=== PATIENT | female | born 1955 | race Caucasian/White ===

== ENCOUNTER → 2017-07-27 10:25 | Outpatient (CLI) | payer OTHER, SELFPAY ==
[2017-07-27 11:07] LABS: AST(SGOT) 27 U/L (15-37); Alanine Aminotransfer ALT/SGPT 44 U/L (13-56); Albumin, Serum 3.7 g/dL (3.2-5.0); Alkaline Phosphatase 119 U/L (45-117); Bilirubin, Direct 0.18 mg/dL (0.00-0.30); Cholesterol 116 mg/dL (200); Globulin 3.7 g/dL (2.2-4.2); High Density Lipoprotein 32 mg/dL; Protein, Total 7.4 g/dL (6.4-8.2); Triglycerides 122 mg/dL; Very Low Density Lipoprotein 24 mg/dL (5-40)
== END ==
PROVIDERS: PCP Family Medicine; Visit Provider Physician Assistant Medical
DX: E78.5 Hyperlipidemia, unspecified (principal); Z79.899 Other long term (current) drug therapy
CPT/HCPCS: 36415; 80061; 80076

== ENCOUNTER 2018-04-10 13:09 | Emergency (ER) | payer OTHER, SELFPAY ==
--- NOTE | 2018-04-10 13:05 | RAD_ITS ---
STUDY: X-RAY CHEST REASON FOR EXAM: Female, 62 years old. Chest pain. TECHNIQUE: Single AP portable view of the chest. COMPARISON: Comparison is made with prior examination dated November 24, 2015. FINDINGS: EKG electrodes are seen. Hyperinflation. There now is evidence of a 2.5 cm x 1.8 cm irregular nodule in the right lung. There is also evidence of a 1 cm x 1.1 cm ill-defined nodule in the left perihilar region. Correlation with CT is recommended. There is no demonstrated pleural abnormality. Normal size heart. Normal mediastinum and zheng. Normal visualized pulmonary arteries. Normal visualized aortic arch and descending thoracic aorta. Normal visualized thoracic spine. Normal visualized ribs, clavicles, and shoulders. There is no demonstrated abnormality of the visualized soft tissue structures of the upper abdomen. RAD/Chest 1 View (Portable) IMPRESSION: Nodular density in the right mid lung as well as in the left perihilar region as described. Correlation with a CT scan recommended. Electronically Signed: Chacorta Whitt MD at 13:49 EST Tel [phone], Service support ,
[2018-04-10 13:09] VITALS: BP 153/77; PULSE 102; RESP 16; TEMP 36.7; O2SAT 93; BMI 31.2
--- NOTE | 2018-04-10 13:14 | EKG12_ITS ---
Test Reason : CP Blood Pressure : / mmHG Vent. Rate : 092 BPM Atrial Rate : 092 BPM P-R Int : 134 ms QRS Dur : 072 ms QT Int : 362 ms P-R-T Axes : 046 080 036 degrees QTc Int : 447 ms Normal sinus rhythm Normal ECG Confirmed by SUE ZULUAGA MD ([id number]), communications editor JEAN PIERRE SCRUGGS ([id number] on 04/12/2018 3:20:17 PM Referred By: MARCELLA Confirmed By:SUE ZULUAGA MD
[2018-04-10 14:12] VITALS: BP 128/77; PULSE 83; RESP 20; O2SAT 94
--- NOTE | 2018-04-10 14:33 | ED.VISSUMM ---
- ER Visit Summary Date of Service: 04/10/18 Chief Complaint: Chest discomfort History of Present Illness: The patient is a 62 F roxann, hypertension, high cholesterol. Patient has one cardiac stent. Is on Plavix. She states the last 2 days she has not felt well. Cough clear phlegm. No hemoptysis. No DVT or PE history. Last travel was 2 months ago. No recent hospitalization. No hemoptysis. No pleuritic pain. No calf pain or swelling. She states today when she bent over she had some chest discomfort that was worsened. She denies fever or chills. Physical Examination: Well-appearing older female. Vital signs are stable. Afebrile. H EENT exam unremarkable. Mildly hoarse voice. Posterior pharynx unremarkable. Neck nontender no lymphadenopathy. Lungs clear to auscultation bilaterally. No rales, rhonchi or wheezing. Heart regular rhythm no murmur. Rate about 90. Chest wall no significant tenderness. No ecchymosis or bruising. No subcu air or crepitance. Patient is moving all 4 extremities. They are neurovascularly intact. Calves are nontender without edema or cords. Radial pulses are equal and symmetrical. Neurologically she is awake and alert with no focal motor deficits. Back nontender. Test Results: EKG shows a sinus rhythm rate of 90 w/o GA or ischemia. Unchanged from prior EKG from 11/25/2015. Chest x-ray portable one view shows bilateral mid lung densities which could be nodularities. But no acute pneumonia. Normal cardiac silhouette. No acute process. See normal white count of 10. Hemoglobin 14. Electrolytes unremarkable. Normal gap. Troponin normal. Emergency Department Course and Treatment: She will undergo cardiac workup. Clinically this may be a bronchitis. Repeat exam patient is doing well at 1702. Overall test results with her. Clinically I do feel this is secondary to her bronchitis and noncardiac. I explained her that this is more likely viral and she did not need an ex at this time. She is comfortable being discharged with the plan. We will follow-up if not improving. I did discuss with the patient that she had nodularities in both lung nguyen that needed further evaluation and follow-up. Treatment Plan: Symptomatic treatment for bronchitis. Follow-up with primary care physician or return if worse. Disposition: Discharge Impression: Acute viral bronchitis Chest pain Incidental findings on chest x-ray possible nodularities which will need further evaluation. This note was generated with [employer] dictation software. It may contain incorrect words, spelling, and punctuation that were not noted in review of the chart prior to signing ED Disposition - Plan for ED Patient: Chief Complaint: Chest Pain Referrals: Eduardo Alvarez MD [Primary Care Provider] -
[2018-04-10 14:58] LABS: Absolute Lymphocyte Count 1.95 X10^3/ul (0.83-4.51); Absolute Neutrophil Count 7.7 X10^3/uL (2.0-7.7); Basophil# 0.03 X10^3/uL; Basophil% 0.3 % (0-1); Eosinophil# 0.07 X10^3/uL; Eosinophils% 0.7 % (0-5); Hematocrit 44.2 % (37-47); Hemoglobin 14.4 g/dl (12.0-15.0); Lymphocyte # 1.95 X10^3/ul (4.0); Lymphocyte % 18.7 % (19-41); Mean Corp Hgb Conc 32.6 g/gl (32-36); Mean Corpuscular Hgb 31.6 pg (27.0-32.0); Mean Corpuscular Volume 97.1 fL (81-99); Mean Platelet Vol. 10.7 fl (6.2-12.0); Monocyte# 0.69 X10^3/uL; Monocyte% 6.6 % (0-10); Neutrophil # 7.69 X10^3/uL (2.7-7.7); Neutrophil % 73.6 % (47-70); Platelet Count 287 K/mm3 (150-450); RBC Distribution Width CV 12.4 % (11.6-14.6); Red Blood Count 4.55 M/mm3 (4.2-5.4); White Blood Count 10.4 K/mm3 (4.4-11.0)
[2018-04-10 15:00] VITALS: BP 124/66; PULSE 75; RESP 18; O2SAT 98
[2018-04-10 15:00] LABS: POSITIVE COUNT NO; POSITIVE DIFFERENTIAL NO; POSITIVE MORPHOLOGY NO
[2018-04-10 15:11] LABS: Anion Gap 7 (5-15); BUN 7 mg/dL (7-18); BUN/Creat Ratio 8.9 RATIO (10-20); Calcium,Total 9.1 mg/dL (8.5-10.1); Chloride 100 mmol/L (98-107); Creatinine, Serum 0.78 mg/dL (0.55-1.02); EST Glomerular Filtration Rate 79 mL/min (>60); Est Glom Filt Rate - Afr Amer 95 mL/min (>60); Estimated Creatinine Clearance 60.27 ml/min; Glucose 165 mg/dL (74-106); Potassium 4.1 mmol/L (3.5-5.1); Sodium Level 135 mmol/L (136-145)
[2018-04-10 16:15] VITALS: BP 116/52; PULSE 84; RESP 13; O2SAT 93
--- NOTE | 2018-04-10 17:07 | ED.DEP ---
ED Disposition - Plan for ED Patient: Disposition: Home or Assisted Living Chief Complaint: Chest Pain Instructions: ED Chest Pain Atypical Unkn Cause, ED URI Viral Referrals: Eduardo Alvarez MD [Primary Care Provider] - 1 Week if not improving Additional Instructions: Absolutely stop smoking. Follow-up your primary care physician if not improving. Plenty fluids and rest. You do have small nodules that showed up in your lungs on the chest x-ray. This will need follow-up CAT scans as an outpatient. You will need to discuss this with your primary care physician.
[2018-04-10 17:18] VITALS: BP 127/64; PULSE 80; RESP 16; O2SAT 99
== END 2018-04-10 17:18 | disposition home or self-care (01) ==
PROVIDERS: Emergency Provider Emergency Medicine; Family Provider Family Medicine; PCP Family Medicine
DX: J20.8 Acute bronchitis due to other specified organisms (principal); R07.89 Other chest pain; R91.8 Other nonspecific abnormal finding of lung field; I25.10 Atherosclerotic heart disease of native coronary artery without angina pectoris; I25.2 Old myocardial infarction; I10 Essential (primary) hypertension; E78.00 Pure hypercholesterolemia, unspecified; Z95.5 Presence of coronary angioplasty implant and graft; Z79.01 Long term (current) use of anticoagulants; Z79.899 Other long term (current) drug therapy; Z72.0 Tobacco use
CPT/HCPCS: 36415; 71045; 80048; 84484; 85025; 93005; 99284; A4216

== ENCOUNTER 2018-04-22 14:07 | Emergency (ER) | payer OTHER, SELFPAY ==
[2018-04-22 14:07] VITALS: BP 127/67; PULSE 82; RESP 18; TEMP 36.9; O2SAT 97; BMI 30.7
--- NOTE | 2018-04-22 14:22 | RAD_ITS ---
STUDY: X-RAY CHEST REASON FOR EXAM: Female, 62 years old. Chest pain. TECHNIQUE: Single AP portable upright view of the chest. COMPARISON: Portable AP chest x-ray April 10, 2018. FINDINGS: Irregular nodular density suggested previously in the right midlung is notably decreased in size to roughly 1 cm, seen today projecting just below the posterior right seventh rib. Nodular density in the left midlung has increased to an ill-defined 3.9 x 2.5 cm groundglass density of indeterminate etiology. There is no demonstrated pleural abnormality. Normal size heart. Normal mediastinum and zheng. Normal visualized pulmonary arteries. Normal visualized aortic arch and descending thoracic aorta. There are stable multilevel degenerative changes of the visualized thoracic spine. 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 There is no demonstrated abnormality of the visualized soft tissue structures of the upper abdomen. RAD/Chest 1 View (Portable) IMPRESSION: 1. Nodular density noted previously in the left perihilar tissues has increased an ill-defined 3.9 cm groundglass density of indeterminate etiology. Further characterization with CT is advised. 2. Regular nodular density in the right midlung has decreased in size, now roughly 1 cm. Electronically Signed: Enoc Street MD at 15:17 EST , Service support ,
--- NOTE | 2018-04-22 14:22 | EKG12_ITS ---
Test Reason : CP Blood Pressure : / mmHG Vent. Rate : 083 BPM Atrial Rate : 083 BPM P-R Int : 144 ms QRS Dur : 074 ms QT Int : 390 ms P-R-T Axes : 079 083 042 degrees QTc Int : 458 ms Normal sinus rhythm Normal ECG Confirmed by SUE ZULUAGA MD ([id number]), legal editor JEAN PIERRE SCRUGGS ([id number]) on 04/25/2018 1:01:46 PM Referred By: JEROMY/MARCELLA Confirmed By:SUE ZULUAGA MD
[2018-04-22 14:23] VITALS: O2SAT 100
[2018-04-22] MEDS: Aspirin 81 MG TAB.CHEW 324 MG PO (14:28)
[2018-04-22 14:36] LABS: Absolute Lymphocyte Count 3.96 X10^3/ul (0.83-4.51); Basophil# 0.03 X10^3/uL; Basophil% 0.2 % (0-1); Eosinophil# 0.09 X10^3/uL; Eosinophils% 0.6 % (0-5); Hematocrit 41.1 % (37-47); Hemoglobin 13.4 g/dl (12.0-15.0); Lymphocyte # 3.96 X10^3/ul (4.0); Lymphocyte % 24.5 % (19-41); Mean Corp Hgb Conc 32.6 g/gl (32-36); Mean Corpuscular Hgb 31.5 pg (27.0-32.0); Mean Corpuscular Volume 96.5 fL (81-99); Mean Platelet Vol. 10.2 fl (6.2-12.0); Monocyte% 6.2 % (0-10); Neutrophil # 11.02 X10^3/uL (2.7-7.7); Neutrophil % 68.1 % (47-70); Platelet Count 437 K/mm3 (150-450); RBC Distribution Width CV 12.4 % (11.6-14.6); RBC Distribution Width SD 43.2 fl (35.1-43.9); Red Blood Count 4.26 M/mm3 (4.2-5.4); White Blood Count 16.2 K/mm3 (4.4-11.0)
[2018-04-22 14:38] LABS: POSITIVE COUNT NO; POSITIVE DIFFERENTIAL NO; POSITIVE MORPHOLOGY NO
[2018-04-22 14:47] LABS: Anion Gap 5 (5-15); BUN 12 mg/dL (7-18); BUN/Creat Ratio 12.4 RATIO (10-20); Calcium,Total 8.9 mg/dL (8.5-10.1); Chloride 97 mmol/L (98-107); Creatinine, Serum 0.96 mg/dL (0.55-1.02); EST Glomerular Filtration Rate 62 mL/min (>60); Est Glom Filt Rate - Afr Amer 75 mL/min (>60); Estimated Creatinine Clearance 48.97 ml/min; Glucose 205 mg/dL (74-106); Potassium 3.4 mmol/L (3.5-5.1); Sodium Level 135 mmol/L (136-145)
--- NOTE | 2018-04-22 15:31 | ED.VISSUMM ---
- ER Visit Summary Date of Service: 04/22/18 Chief Complaint: Chest discomfort History of Present Illness: The patient is a 62 F history of type 2 diabetes, CAD, elevated cholesterol, one cardiac stent. Patient states has some chest discomfort. No nausea no diaphoresis. Has had a chronic cough. Recently being treated for bronchitis. Also complaining of a coating on her tongue. Physical Examination: Vital signs are stable. Afebrile. Pulse ox 97% on room air no signs of hypoxia. No distress. H EENT exam tongue is a coating consistent with thrush. Neck nontender. No lymphadenopathy. Lungs clear to auscultation bilaterally. Heart regular rate and rhythm no murmur rate about 80. Abdomen soft nontender nondistended no commands or masses. Chest wall there is reproducible chest wall tenderness consistent with chest wall pain. There is no ecchymosis or bruising. No redness or warmth. No signs of trauma. Patient moving all 4 extremities. Calves are nontender without edema or cords. Radial pulses are equal and symmetrical. Neurologically she is awake alert with no focal motor deficits. Test Results: Chest x-ray shows no acute abnormality. There is a left perihilar density and a right lower lung density. The been seen previously. CBC shows a white count of 16. H&H of 13 and 41. No bands. Electrolytes unremarkable. Normal creatinine and gap. Troponin normal. EKG sinus rhythm rate of 1 3 with no acute abnormality. No signs of AK or ischemia. Unchanged from prior EKG from less than 2 weeks ago. Emergency Department Course and Treatment: Repeat exam patient is doing well. Feeling better at 1530. I went over all test results with patient and family. Treatment Plan: Tylenol and/or Motrin for chest wall pain. Oral troches for oral yeast infection Disposition: Discharge Impression: Acute chest pain secondary to chest wall pain Thrush This note was generated with [employer] dictation software. It may contain incorrect words, spelling, and punctuation that were not noted in review of the chart prior to signing ED Disposition - Plan for ED Patient: Chief Complaint: Chest Pain Referrals: Eduardo Alvarez MD [Primary Care Provider] -
--- NOTE | 2018-04-22 15:34 | ED.DCSUM_ITS ---
- ER Visit Summary Date of Service: 04/22/18 Chief Complaint: Chest discomfort History of Present Illness: The patient is a 62 F history of type 2 diabetes, CAD, elevated cholesterol, one cardiac stent. Patient states has some chest discomfort. No nausea no diaphoresis. Has had a chronic cough. Recently being treated for bronchitis. Also complaining of a coating on her tongue. Physical Examination: Vital signs are stable. Afebrile. Pulse ox 97% on room air no signs of hypoxia. No distress. H EENT exam tongue is a coating consistent with thrush. Neck nontender. No lymphadenopathy. Lungs clear to auscultation bilaterally. Heart regular rate and rhythm no murmur rate about 80. Abdomen soft nontender nondistended no commands or masses. Chest wall there is reproducible chest wall tenderness consistent with chest wall pain. There is no ecchymosis or bruising. No redness or warmth. No signs of trauma. Patient moving all 4 extremities. Calves are nontender without edema or cords. Radial pulses are equal and symmetrical. Neurologically she is awake alert with no focal motor deficits. Test Results: Chest x-ray shows no acute abnormality. There is a left perihilar density and a right lower lung density. The been seen previously. CBC shows a white count of 16. H&H of 13 and 41. No bands. Electrolytes unremarkable. Normal creatinine and gap. Troponin normal. EKG sinus rhythm rate of 1 3 with no acute abnormality. No signs of ME or ischemia. Unchanged from prior EKG from less than 2 weeks ago. Emergency Department Course and Treatment: Repeat exam patient is doing well. Feeling better at 1530. I went over all test results with patient and family. Treatment Plan: Tylenol and/or Motrin for chest wall pain. Oral troches for oral yeast infection Disposition: Discharge Impression: Acute chest pain secondary to chest wall pain Thrush This note was generated with [employer] dictation software. It may contain incorrect words, spelling, and punctuation that were not noted in review of the chart prior to signing ED Disposition - Plan for ED Patient: Chief Complaint: Chest Pain Referrals: Eduardo Alvarez MD [Primary Care Provider] -
--- NOTE | 2018-04-22 15:34 | ED.DEP ---
ED Disposition - Plan for ED Patient: Disposition: Home or Assisted Living Chief Complaint: Chest Pain Instructions: ED Chest Pain Costochondritis, Oral Thrush Prescriptions: Nystatin 100,000 unit PO 4X/DAY PRN PRN 7 Days oral.susp PRN Reason: thrush Referrals: Eduardo Alvarez MD [Primary Care Provider] - As Needed Additional Instructions: Tylenol Motrin for pain. Return if feeling worse. Follow-up with primary care physician
[2018-04-22 15:46] VITALS: BP 116/75; PULSE 72; RESP 16; O2SAT 97
== END 2018-04-22 15:48 | disposition home or self-care (01) ==
PROVIDERS: Emergency Provider Emergency Medicine; Family Provider Family Medicine; PCP Family Medicine
DX: R07.89 Other chest pain (principal); B37.0 Candidal stomatitis; E11.9 Type 2 diabetes mellitus without complications; I25.10 Atherosclerotic heart disease of native coronary artery without angina pectoris; E78.00 Pure hypercholesterolemia, unspecified; Z95.5 Presence of coronary angioplasty implant and graft; Z79.01 Long term (current) use of anticoagulants; Z79.899 Other long term (current) drug therapy; Z72.0 Tobacco use
CPT/HCPCS: 71045; 80048; 84484; 85025; 93005; 99285

== ENCOUNTER → 2018-12-03 11:46 | Outpatient (CLI) | payer MEDICARE, SELFPAY ==
--- NOTE | 2018-12-03 11:55 | RAD_ITS ---
STUDY: X-RAY - RIGHT HAND REASON FOR EXAM: Female, 63 years old. Pain TECHNIQUE: 3 view(s) of the hand. COMPARISON: None. FINDINGS: Normal radiocarpal articulation. Normal distal radioulnar joint. Normal visualized carpal bones. Normal carpal articulations Normal carpometacarpal articulation of the thumb. Normal second through fifth carpometacarpal joints. Normal metacarpi. Normal metacarpophalangeal joint of the thumb. There is degenerative arthrosis of the interphalangeal joint of the thumb with articular joint space narrowing. Normal proximal and distal phalanges of the thumb. Normal metacarpophalangeal joints of the second through fifth fingers. There is diffuse articular joint space narrowing of the proximal and distal interphalangeal joints of the second through fifth fingers, but without erosive changes or periarticular soft tissue swelling. Normal phalanges of the second through fifth fingers. The soft tissue structures are unremarkable. RAD/Hand Min 3 Views IMPRESSION: Distal joint arthrosis, no demonstrated fracture or suspicious osseous lesion. Electronically Signed: Enoc Patel MD at 12:25 EDT , Service support ,
== END ==
PROVIDERS: Family Provider Family Medicine; PCP Family Medicine; Referring Provider Family Medicine; Visit Provider Family Medicine
DX: M19.041 Primary osteoarthritis, right hand (principal)
CPT/HCPCS: 73130

== ENCOUNTER → 2019-11-18 | Outpatient (CLI) | payer BC, SELFPAY ==
[2019-11-18 12:48] LABS: Anion Gap 4 (5-15); BUN 6 mg/dL (7-18); BUN/Creat Ratio 8.6 RATIO (10-20); Calcium,Total 9.2 mg/dL (8.5-10.1); Chloride 109 mmol/L (98-107); Cholesterol 114 mg/dL (200); EST Glomerular Filtration Rate 89 mL/min (>60); Est Glom Filt Rate - Afr Amer 108 mL/min (>60); Glucose 209 mg/dL (74-106); High Density Lipoprotein 33 mg/dL; Potassium 4.2 mmol/L (3.5-5.1); Sodium Level 140 mmol/L (136-145); Triglycerides 121 mg/dL; Very Low Density Lipoprotein 24 mg/dL (5-40)
== END | disposition home or self-care (01) ==
LOC: MFPLAB 10:26
PROVIDERS: PCP Family Medicine; Visit Provider Family Medicine
DX: I10 Essential (primary) hypertension (principal)
CPT/HCPCS: 36415; 80048; 80061

== ENCOUNTER → 2019-11-21 09:17 | Outpatient (CLI) | payer BC, SELFPAY ==
[2019-11-21 10:36] LABS: Microalbumin,Random Urine 50.6 mg/L (NO RANGE EST.); Microalbumin:Creatinine Ratio 34.2 mg/g CRE (<30 mg/g CRE)
[2019-11-21 11:06] LABS: AST(SGOT) 33 U/L (15-37); Alanine Aminotransfer ALT/SGPT 41 U/L (13-56); Albumin, Serum 3.5 g/dL (3.2-5.0); Alkaline Phosphatase 107 U/L (45-117); Anion Gap 4 (5-15); BUN 10 mg/dL (7-18); BUN/Creat Ratio 14.6 RATIO (10-20); Bilirubin, Direct 0.16 mg/dL (0.00-0.30); Calcium,Total 9.1 mg/dL (8.5-10.1); Chloride 107 mmol/L (98-107); Cholesterol 111 mg/dL (200); Creatinine, Serum 0.69 mg/dL (0.55-1.02); EST Glomerular Filtration Rate 91 mL/min (>60); Est Glom Filt Rate - Afr Amer 110 mL/min (>60); Globulin 3.6 g/dL (2.2-4.2); Glucose 260 mg/dL (74-106); High Density Lipoprotein 32 mg/dL; Potassium 4.2 mmol/L (3.5-5.1); Protein, Total 7.1 g/dL (6.4-8.2); Sodium Level 139 mmol/L (136-145); Triglycerides 139 mg/dL; Very Low Density Lipoprotein 28 mg/dL (5-40)
== END ==
PROVIDERS: PCP Family Medicine; Referring Provider Family Medicine; Visit Provider Family Medicine
DX: E11.9 Type 2 diabetes mellitus without complications (principal)
CPT/HCPCS: 36415; 80048; 80061; 80076; 82043; 82570

== ENCOUNTER → 2020-01-03 17:26 | Outpatient (CLI) | payer BC, SELFPAY | PROVIDERS: PCP Family Medicine; Referring Provider Family Medicine; Visit Provider Family Medicine | DX: Z20.828 Contact with and (suspected) exposure to other viral communicable diseases (principal) | CPT/HCPCS: 87635; U0003 ==

== ENCOUNTER → 2020-08-21 10:00 | Outpatient (CLI) | payer MEDICARE, SELFPAY ==
[2020-02-27 14:52] VITALS: BMI 31.6
[2020-08-21 12:43] LABS: Anion Gap 6 (5-15); BUN 11 mg/dL (7-18); BUN/Creat Ratio 16.3 RATIO (10-20); Calcium,Total 9.4 mg/dL (8.5-10.1); Chloride 107 mmol/L (98-107); Cholesterol 128 mg/dL (200); Creatinine, Serum 0.67 mg/dL (0.55-1.02); EST Glomerular Filtration Rate 93 mL/min (>60); Est Glom Filt Rate - Afr Amer 112 mL/min (>60); Glucose 146 mg/dL (74-106); High Density Lipoprotein 35 mg/dL; Sodium Level 141 mmol/L (136-145); Triglycerides 117 mg/dL; Very Low Density Lipoprotein 23 mg/dL (5-40)
[2020-08-21 12:55] LABS: Microalbumin,Random Urine 55.9 mg/L (NO RANGE EST.); Microalbumin:Creatinine Ratio 27.1 mg/g CRE (<30 mg/g CRE)
== END ==
PROVIDERS: PCP Family Medicine; Referring Provider Family Medicine; Visit Provider Family Medicine
DX: E11.9 Type 2 diabetes mellitus without complications (principal)
CPT/HCPCS: 36415; 80048; 80061; 82043; 82570

== ENCOUNTER → 2020-10-26 15:43 | Outpatient (CLI) | payer MEDICARE, SELFPAY ==
[2020-02-27 14:52] VITALS: BMI 31.6
--- NOTE | 2020-10-26 15:45 | CT_ITS ---
STUDY: CT CHEST WITHOUT CONTRAST- LOW DOSE SCREENING PROTOCOL REASON FOR EXAM: Female, 64 years old. Current smoker. 75 pack per year history. No current symptoms of lung cancer or pulmonary infection. Shared decision-making with referring PCP documented in patient''s record. RADIATION DOSAGE (If Supplied By Facility): CTDIvol = ( 3.02 ) mGy, DLP = ( 97.42 ) mGycm TECHNIQUE: Low dose screening CT examination performed from the base of the neck to the upper abdomen. Sagittal and coronal reformatted images performed. Sagittal and coronal MIP images provided. The measurements provided are average, rounded measurements per ACR guidelines. COMPARISON: None. FINDINGS: Mild emphysematous changes. 1 cm noncalcified nodule in the medial left upper lobe the lungs on image 84 and correlation with PET CT scan is recommended. Follow-up CT is recommended in 3 months document stability. There is no demonstrated pleural abnormality. Normal heart and pericardium. There are calcifications of the coronary arteries. Normal mediastinum. Normal hilar regions. Normal unenhanced pulmonary arteries. There is atherosclerotic calcification of the aortic arch with tortuosity and elongation of the aortic arch and descending thoracic aorta. Normal osseous structures. There is no demonstrated abnormality of the visualized upper abdomen. CT/Low Dose CT Lung Screening IMPRESSION: 1. 1 cm noncalcified left upper lobe nodule and correlation with PET CT scan is recommended. Follow-up CT is recommended in 3 months document stability.. 2. Incidental findings include mild emphysema and calcified coronary plaque.. ASSESSMENT CATEGORY: LungRADS 4A - Suspicious. Recommend follow up LDCT in 3 months. PET/CT may be used if there is an 8 mm or larger solid component. Electronically Signed: Alvin Elias MD at 8:38 EDT Tel , Service support ,
== END ==
PROVIDERS: PCP Family Medicine; Referring Provider Internal Medicine Pulmonary Disease; Visit Provider Internal Medicine Pulmonary Disease
DX: Z87.891 Personal history of nicotine dependence (principal)
CPT/HCPCS: 71271

== ENCOUNTER → 2020-11-19 11:53 | Outpatient (CLI) | payer MEDICARE, SELFPAY ==
[2020-02-27 14:52] VITALS: BMI 31.6
[2020-11-19 15:13] LABS: Anion Gap 6 (5-15); BUN 10 mg/dL (7-18); BUN/Creat Ratio 13.8 RATIO (10-20); Calcium,Total 9.2 mg/dL (8.5-10.1); Chloride 103 mmol/L (98-107); Cholesterol 141 mg/dL (200); Creatinine, Serum 0.73 mg/dL (0.55-1.02); EST Glomerular Filtration Rate 85 mL/min (>60); Est Glom Filt Rate - Afr Amer 103 mL/min (>60); Glucose 208 mg/dL (74-106); High Density Lipoprotein 39 mg/dL; Potassium 4.2 mmol/L (3.5-5.1); Sodium Level 137 mmol/L (136-145); Triglycerides 145 mg/dL; Very Low Density Lipoprotein 29 mg/dL (5-40)
== END ==
PROVIDERS: PCP Family Medicine; Referring Provider Family Medicine; Visit Provider Family Medicine
DX: E11.9 Type 2 diabetes mellitus without complications (principal)
CPT/HCPCS: 36415; 80048; 80061

== ENCOUNTER 2020-11-25 07:46 | Emergency (ER) | payer MEDICARE, SELFPAY ==
[2020-11-19 13:56] VITALS: BMI 32.4
[2020-11-25 07:47] VITALS: BP 127/62; PULSE 88; RESP 22; TEMP 35.4; O2SAT 91; BMI 31.8
--- NOTE | 2020-11-25 08:11 | EKG12_ITS ---
Test Reason : SOB Blood Pressure : / mmHG Vent. Rate : 080 BPM Atrial Rate : 080 BPM P-R Int : 152 ms QRS Dur : 078 ms QT Int : 398 ms P-R-T Axes : 049 080 037 degrees QTc Int : 459 ms Normal sinus rhythm Normal ECG Confirmed by MARGARETH SANCHEZ, SUE ([id number]), advertising editor GREGG COLINDRES ([id number]) on 11/27/2020 12:44:37 PM Referred By: SAAD Confirmed By:SUE ZULUAGA MD
--- NOTE | 2020-11-25 08:13 | ED.VIS.DYS ---
HPI History of Present Illness Chief Complaint: Shortness of Breath Narrative Narrative: 65-year-old female presenting for shortness of breath. She states that 5 days ago on Monday she started to feel that she was coming down with flulike symptoms. She states she slept a lot. She developed a fever over Monday and Monday. She did not check her temperature but states subjectively she felt like she had a fever, chills, body aches. No loss of taste or smell. Patient states that today she feels more dyspneic. Overnight she states she had some aching in her chest which was very mild. She has not been vaccinated for COVID-19. 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 [facility] Medical History Atherosclerosis of coronary artery without angina pectoris COPD (chronic obstructive pulmonary disease) Diabetes mellitus type II, controlled Essential (primary) hypertension History of non-ST elevation myocardial infarction (NSTEMI) (01/19/09) HLD (hyperlipidemia) Nicotine dependence Obesity (BMI 30-39.9) SVT (supraventricular tachycardia) Home Medications magnesium oxide 400 mg (241.3 mg magnesium) tablet 400 mg PO BID #180 tab 04/23/19 [Rx Last Taken Unknown] atorvastatin 80 mg tablet 80 mg PO QHS #90 tab 01/21/20 [Rx Last Taken Unknown] clopidogrel 75 mg tablet 75 mg PO DAILY #90 tab 01/21/20 [Rx Last Taken Unknown] folic acid 1 mg tablet 1 mg PO DAILY #90 tab 02/18/20 [Rx Last Taken Unknown] biotin 5 mg capsule 5 mg PO DAILY 02/27/20 [History Last Taken Unknown] vitamin E (dl, acetate) 400 unit capsule 450 mg PO DAILY 02/27/20 [History Last Taken Unknown] lisinopril 10 mg tablet 10 mg PO DAILY #90 tab 05/08/20 [Rx Last Taken Unknown] isosorbide mononitrate 30 mg tablet,extended release 24 hr 30 mg PO DAILY #90 tab 06/19/20 [Rx Last Taken Unknown] metoprolol succinate 50 mg tablet,extended release 24 hr 50 mg PO DAILY #30 tab 08/13/20 [Rx Last Taken Unknown] nitroglycerin 0.4 mg sublingual tablet 0.4 mg SUBLINGUAL Q5M PRN #25 tab 10/09/20 [Rx Last Taken Unknown] glimepiride 4 mg tablet mg PO 11/19/20 [History Last Taken Unknown] metformin 500 mg tablet,extended release 24 hr mg PO 11/19/20 [History Last Taken Unknown] umeclidinium 62.5 mcg-vilanterol 25 mcg/actuation powdr for inhalation 1 inh INHALATION DAILY ea 11/19/20 [History Last Taken Unknown] Allergy/AdvReac Type Severity Reaction Status Date / Time cephalexin Allergy Hives Verified 11/25/20 07:47 Fish Containing Products Allergy Anaphylaxis Verified 11/25/20 07:47 Penicillins Allergy Anaphylaxis Verified 11/25/20 07:47 venom-honey bee Allergy Shortness Verified 11/25/20 07:47 [bee venom (honey bee)] of breath sulfadiazine AdvReac Severe Unknown Verified 11/25/20 07:47 wellbutrin AdvReac Severe Rash Uncoded 11/25/20 07:47 Family History Father Diabetes Hypertension CAD (coronary artery disease) Hx CABG Myocardial infarction, Onset Age: 63 Cancer Lung Cancer Mother , from aneurysm at age 40 CVA (cerebral vascular accident) Daughter CAD (coronary artery disease) Surgical History History of bilateral carpal tunnel release History of coronary artery stent placement (01/19/09) History of hysterectomy History of left heart catheterization (11/25/15) Social History Smoking Status: Current every day smoker tobacco type: cigarettes alcohol intake: never substance use type: does not use caffeine: Yes Type: coffee what type of physical activity do you participate in: none seatbelt use: always do you feel safe at home: Yes ROS ROS ED Constitutional Constitutional ED: Reports chills and fever(s); Denies sweats Eyes Eyes: Denies blurry vision or change in vision ENT ENT ED: Denies ear pain or rhinorrhea Respiratory/Chest Respiratory/Chest: Reports cough, dyspnea and dyspnea on exertion Gastrointestinal Gastrointestinal: Denies abdominal pain, nausea or vomiting Genitourinary Genitourinary ED: Denies dysuria or hematuria Musculoskeletal Musculoskeletal: Reports myalgias; Denies arthralgias or neck pain Integumentary Denies abscess or rash Neurologic Neurologic: Denies headache(s), paresthesias or weakness Psychiatric Psychiatric: Denies anxiety or depression EXAM Physical Exam Const Vital Signs: 11/25/20 07:47 11/25/20 10:18 Temperature 95.7 F L Temperature Source Temporal Pulse Rate 88 82 Respiratory Rate 22 H 14 Respiratory Effort Short of Breath Respiratory Depth Normal Respiratory Pattern Tachypnea Blood Pressure 127/62 H Blood Pressure Mean 83 Pulse Ox 91 94 Oxygen Delivery Method Room Air Nasal Cannula Oxygen Flow Rate (L/min) 2 Positive well nourished General Appearance ED: NAD HEENT Reports moist mucous membranes atraumatic Eyes PERRL General Eye ED: Negative for scleral icterus Resp normal respiratory effort and clear to auscultation bilaterally Cardio regular rate and regular rhythm Extremity normal to inspection General Extremety ED: Negative for edema General Extremity: Negative for edema Neuro oriented x3 Sensorium / Orientation: alert Skin Lesions: no lesions Rashes: no rashes MDM MDM MDM Narrative Medical decision making narrative: Patient presenting with concern for COVID-19. Has had some viral symptoms. She also complained of mild aching for a minute or 2 last night in her chest. She had an EKG as interpreted by myself is sinus rhythm without signs of ischemic change 80 bpm. My interpretation of her one-view portable chest x-ray is negative for acute cardiopulmonary process. Patient's white blood cell count is 9.2, hemoglobin hematocrit stable. She is not lymphopenic. Renal function and electrolytes are normal. Lactic acid is negative. Troponin is negative. Age-adjusted D-dimer is negative. During the patient's stay it was noted that when she sits in bed her oxygen drops down to 90 to 92%. When ambulating she dropped to 87 at the end of her walk. She did not appear to be in distress however. Attempted to talk with transplant case manager to see if we could get her oxygen set up for home. Since her COVID-19 test is negative this is not possible. I did attempt to page Dr. Alvarez however I have not heard back from him. Patient is adamant that she does not want to stay in the hospital. She states that she is going to go home and use her 's oxygen regenerator. She did spend a fair amount of time in the emergency room but this is due to trying to find options for her as she did not want to be admitted. Patient is given return precautions. After patient left Dr. Alvarez came down to the emergency room and I discussed the case with him. He states that he will reach out to her and get her set up for oxygen as needed. He also states that she is dropped her saturations before. Impression: 1. Viral syndrome 2. Hypoxia Lab Data Attestation: I reviewed the patient's lab results. Labs: Laboratory Results - last 24 hr 11/25/20 11/25/20 11/25/20 08:19 08:50 08:50 WBC 9.2 RBC 4.43 Hgb 14.1 Hct 42.9 MCV 96.8 MCH 31.8 MCHC 32.9 RDW Std Deviation 43.5 RDW Coeff of Hang 12.1 Plt Count 269 MPV 10.6 Immature Gran % (Auto) 0.400 Neut % (Auto) 63.7 Lymph % (Auto) 24.1 [place] % (Auto) 10.1 H Eos % (Auto) 1.3 Baso % (Auto) 0.4 Absolute Neuts (auto) 5.9 Absolute Lymphs (auto) 2.22 Nucleated RBC % 0 D-Dimer Quant (PE/DVT) Cancelled Sodium Potassium Chloride Carbon Dioxide Anion Gap BUN Creatinine Estim Creat Clear Calc Est GFR (MDRD) Af Amer Est GFR (MDRD) Non-Af BUN/Creatinine Ratio Glucose Lactic Acid Calcium Total Bilirubin AST ALT Alkaline Phosphatase Troponin I High Sens Total Protein Albumin Globulin Albumin/Globulin Ratio COVID-19 (TIM) Not Detected 11/25/20 11/25/20 11/25/20 08:50 08:50 09:48 WBC RBC Hgb Hct MCV MCH MCHC RDW Std Deviation RDW Coeff of Hang Plt Count MPV Immature Gran % (Auto) Neut % (Auto) Lymph % (Auto) [place] % (Auto) Eos % (Auto) Baso % (Auto) Absolute Neuts (auto) Absolute Lymphs (auto) Nucleated RBC % D-Dimer Quant (PE/DVT) Sodium Cancelled 135 L Potassium Cancelled 3.8 Chloride Cancelled 103 Carbon Dioxide Cancelled 25.0 Anion Gap Cancelled 7 BUN Cancelled 9 Creatinine Cancelled 0.64 Estim Creat Clear Calc Cancelled 45.16 Est GFR (MDRD) Af Amer Cancelled 119 Est GFR (MDRD) Non-Af Cancelled 98 BUN/Creatinine Ratio Cancelled 14.0 Glucose Cancelled 195 H Lactic Acid Cancelled Calcium Cancelled 9.3 Total Bilirubin Cancelled 0.90 AST Cancelled 21 ALT Cancelled 35 Alkaline Phosphatase Cancelled 93 Troponin I High Sens Cancelled 3.8 Total Protein Cancelled 7.5 Albumin Cancelled 3.3 Globulin Cancelled 4.2 Albumin/Globulin Ratio Cancelled 0.8 L COVID-19 (TIM) 11/25/20 11/25/20 09:48 09:48 WBC RBC Hgb Hct MCV MCH MCHC RDW Std Deviation RDW Coeff of Hang Plt Count MPV Immature Gran % (Auto) Neut % (Auto) Lymph % (Auto) [place] % (Auto) Eos % (Auto) Baso % (Auto) Absolute Neuts (auto) Absolute Lymphs (auto) Nucleated RBC % D-Dimer Quant (PE/DVT) 0.60 H* Sodium Potassium Chloride Carbon Dioxide Anion Gap BUN Creatinine Estim Creat Clear Calc Est GFR (MDRD) Af Amer Est GFR (MDRD) Non-Af BUN/Creatinine Ratio Glucose Lactic Acid 1.0 Calcium Total Bilirubin AST ALT Alkaline Phosphatase Troponin I High Sens Total Protein Albumin Globulin Albumin/Globulin Ratio COVID-19 (TIM) Radiography Diagnostic Testing: Radiology Impression Chest X-Ray 11/25/20 09:04 IMPRESSION: Negative study for intrathoracic active disease. Electronically Signed: Rosa Maria Sosa, at 9:18 EDT Tel , Service support , Discharge Plan Triage Chief Complaint: Shortness of Breath ED Provider: Derek Martínez Dx/Rx/DC Orders Instructions: ED Viral Syndrome (Adult) Prescriptions: No Action biotin 5 mg capsule 5 mg PO DAILY RF: 0 vitamin E (dl, acetate) 400 unit capsule 450 mg PO DAILY RF: 0 Anoro Ellipta 62.5-25 mcg/actuation blister with device 1 inh inhalation DAILY RF: 0 metformin 500 mg tablet extended release 24 hr PO RF: 0 glimepiride 4 mg tablet PO RF: 0 magnesium oxide 400 mg (241.3 mg magnesium) tablet 400 mg PO BID Qty: 180 RF: 3 atorvastatin 80 mg tablet 80 mg PO QHS Qty: 90 RF: 3 clopidogrel 75 mg tablet 75 mg PO DAILY Qty: 90 RF: 3 folic acid 1 mg tablet 1 mg PO DAILY Qty: 90 RF: 3 lisinopril 10 mg tablet 10 mg PO DAILY Qty: 90 RF: 3 isosorbide mononitrate 30 mg tablet extended release 24 hr 30 mg PO DAILY Qty: 90 RF: 3 metoprolol succinate 50 mg tablet extended release 24 hr 50 mg PO DAILY Qty: 30 RF: 11 nitroglycerin [Nitrostat] 0.4 mg tablet, sublingual 0.4 mg SUBLINGUAL Q5M PRN (Reason: chest pain) Qty: 25 RF: 3 Primary Care Provider: Eduardo Alvarez Referrals: Eduardo Alvarez MD [Primary Care Provider] - Disposition Disposition: Home, Self Care Discharge Date/Time: 11/25/20 13:43
--- NOTE | 2020-11-25 09:04 | RAD_ITS ---
STUDY: X-RAY CHEST REASON FOR EXAM: Female, 65 years old. cough TECHNIQUE: 1 view COMPARISON: 04/22/2018. FINDINGS: There are heavy markings centrally suggestive of bronchitis. The previously seen groundglass opacity in the left lower lung field is not seen in today''s examination. There is no demonstrated pleural abnormality. Normal size heart. Normal mediastinum and zheng. Normal visualized pulmonary arteries. Normal visualized aortic arch and descending thoracic aorta. Normal visualized thoracic spine. Normal visualized ribs, clavicles, and shoulders. There is no demonstrated abnormality of the visualized soft tissue structures of the upper abdomen. RAD/Chest 1 View (Portable) IMPRESSION: Negative study for intrathoracic active disease. Electronically Signed: Rosa Maria Sosa, at 9:18 EDT Tel , Service support ,
[2020-11-25 09:05] LABS: Absolute Lymphocyte Count 2.22 X10^3/uL (0.83-4.51); Absolute Neutrophil Count 5.9 X10^3/uL (2.0-7.7); Basophil# 0.04 X10^3/uL; Basophil% 0.4 % (0-1); Eosinophil# 0.12 X10^3/uL; Eosinophils% 1.3 % (0-5); Hematocrit 42.9 % (37-47); Hemoglobin 14.1 g/dL (12.0-15.0); Lymphocyte # 2.22 X10^3/ul (0.83-4.51); Lymphocyte % 24.1 % (19-41); Mean Corp Hgb Conc 32.9 g/dL (32-36); Mean Corpuscular Hgb 31.8 pg (27.0-32.0); Mean Corpuscular Volume 96.8 fL (81-99); Mean Platelet Vol. 10.6 fl (6.2-12.0); Monocyte# 0.93 X10^3/uL; Monocyte% 10.1 % (0-10); NRBC Flagged by Analyzer 0 % (0-5); Neutrophil # 5.88 X10^3/uL (2.7-7.7); Neutrophil % 63.7 % (47-70); Platelet Count 269 K/mm3 (150-450); RBC Distribution Width CV 12.1 % (11.6-14.6); RBC Distribution Width SD 43.5 fl (35.1-43.9); Red Blood Count 4.43 M/mm3 (4.2-5.4); White Blood Count 9.2 K/mm3 (4.4-11.0)
[2020-11-25 10:18] VITALS: PULSE 82; RESP 14; O2SAT 94
[2020-11-25 10:21] LABS: ALB/GLOB Ratio 0.8 RATIO (0.9-2.4); AST(SGOT) 21 U/L (15-37); Alanine Aminotransfer ALT/SGPT 35 U/L (13-56); Albumin, Serum 3.3 g/dL (3.2-5.0); Alkaline Phosphatase 93 U/L (45-117); Anion Gap 7 (5-15); BUN 9 mg/dL (7-18); Calcium,Total 9.3 mg/dL (8.5-10.1); Chloride 103 mmol/L (98-107); Creatinine, Serum 0.64 mg/dL (0.55-1.02); EST Glomerular Filtration Rate 98 mL/min (>60); Est Glom Filt Rate - Afr Amer 119 mL/min (>60); Estimated Creatinine Clearance 45.16 ml/min; Globulin 4.2 g/dL (2.2-4.2); Glucose 195 mg/dL (74-106); Potassium 3.8 mmol/L (3.5-5.1); Protein, Total 7.5 g/dL (6.4-8.2); Sodium Level 135 mmol/L (136-145); Troponin-I HS 3.8 pg/mL (3.0-53.7)
[2020-11-25 11:50] VITALS: O2SAT 93
--- NOTE | 2020-11-25 12:48 | NURSING ---
DR ORTEGA FOR DR GARCIA
[2020-11-25 13:43] VITALS: RESP 18
== END 2020-11-25 13:43 | disposition home or self-care (01) ==
PROVIDERS: Emergency Provider Student in an Organized Health Care Education/Training Program; PCP Family Medicine
DX: B34.9 Viral infection, unspecified (principal); R09.02 Hypoxemia; I25.10 Atherosclerotic heart disease of native coronary artery without angina pectoris; F17.210 Nicotine dependence, cigarettes, uncomplicated; E66.9 Obesity, unspecified
CPT/HCPCS: 36415; 71045; 80053; 83605; 84484; 85025; 85379; 87040; 87635; 93005; 99285; U0005; A4216; U0003

== ENCOUNTER → 2020-12-15 15:03 | Outpatient (CLI) | payer MEDICARE, SELFPAY ==
[2020-11-19 13:56] VITALS: BMI 32.4
[2020-11-25 07:47] VITALS: BMI 31.8
== END ==
PROVIDERS: PCP Family Medicine; Referring Provider Internal Medicine Pulmonary Disease; Visit Provider Internal Medicine Pulmonary Disease
DX: R91.1 Solitary pulmonary nodule (principal)

== ENCOUNTER 2021-02-22 14:07 | Emergency (ER) | payer MEDICARE, SELFPAY ==
[2021-02-22 14:08] VITALS: BP 138/64; PULSE 93; RESP 18; TEMP 36.2; O2SAT 98; BMI 33.7
== END 2021-02-22 14:20 | disposition left against medical advice (07) ==
LOC: ED 14:20
PROVIDERS: PCP Family Medicine
DX: Z53.21 Procedure and treatment not carried out due to patient leaving prior to being seen by health care provider (principal)

== ENCOUNTER 2021-06-10 16:00 | Outpatient (CLI) | payer MEDICARE, SELFPAY ==
--- NOTE | 2021-06-10 16:00 | LES_PTH ---
PATIENT: CARINE NEWTON LOC: [facility] U#:[id number] AGE/SX: 65/F ROOM: RE06/10/[address]: Dr. Eduardo Alvarez MD : [id number] BED: DIS: 06/10/2021 SPEC #: [id number] RECD: 06/10/21 18:07 STATUS: GENNY DE LA FUENTELuis #: [id number] GORGE: 06/10/21 16:[address]: Eduardo Alvarez DEPT: SURGICAL PATHOLOGY RECD BY: Svetlana Toth Tissues: Skin of breast, NOS Procedures: Surgery Specimen Level IV HEADER OPERATION: Left breast 6 mm punch biopsy PRE-OP DIAGNOSIS: Neoplasm TISSUE SUBMITTED: Left breast MICROSCOPIC DIAGNOSIS Left breast lesion, punch biopsy: Seborrheic keratosis. Negative for malignancy. See comment. COOKIE:javan 06/14/2021 COMMENT Correlation with clinical findings and appropriate follow up are necessary. MICROSCOPIC DESCRIPTION Slides are reviewed. GROSS DESCRIPTION Received is one container labeled with the patient's name and not further designated. The specimen consists of a punch biopsy of jung-white skin measuring 0.5 cm in diameter and 0.4 cm in length. The specimen is inked, bisected and submitted entirely in one cassette. / SJ:rg 06/11/2021 TC:1 CPT: 80076
== END 2021-06-10 23:59 | disposition short-term general hospital (02) ==
LOC: LABSPEC 06-11 08:22
PROVIDERS: PCP Family Medicine; Referring Provider Family Medicine; Visit Provider Family Medicine
DX: N64.89 Other specified disorders of breast (principal)
CPT/HCPCS: 88305

== ENCOUNTER 2021-08-19 09:00 | Outpatient (CLI) | payer MEDICARE, SELFPAY ==
[2021-08-19 10:23] LABS: Anion Gap 3 (5-15); BUN 9 mg/dL (7-18); BUN/Creat Ratio 13.5 RATIO (10-20); Calcium,Total 9.3 mg/dL (8.5-10.1); Chloride 107 mmol/L (98-107); Cholesterol 139 mg/dL (200); Creatinine, Serum 0.67 mg/dL (0.55-1.02); EST Glomerular Filtration Rate 93 mL/min (>60); Est Glom Filt Rate - Afr Amer 113 mL/min (>60); Glucose 145 mg/dL (74-106); High Density Lipoprotein 38 mg/dL; Potassium 4.4 mmol/L (3.5-5.1); Sodium Level 140 mmol/L (136-145); Triglycerides 192 mg/dL; Very Low Density Lipoprotein 38 mg/dL (5-40)
== END 2021-08-19 23:59 | disposition home or self-care (01) ==
LOC: MFPLAB 09:01
PROVIDERS: PCP Family Medicine; Referring Provider Family Medicine; Visit Provider Family Medicine
DX: E11.9 Type 2 diabetes mellitus without complications (principal)
CPT/HCPCS: 36415; 80048; 80061

== ENCOUNTER 2021-08-24 16:02 | Emergency (ER) | payer MEDICARE, SELFPAY ==
[2021-08-24 16:05] VITALS: BP 121/77; PULSE 167; RESP 20; TEMP 35.7; O2SAT 98; BMI 29.4
[2021-08-24 16:14] VITALS: BP 110/81; PULSE 160; RESP 21; O2SAT 95
--- NOTE | 2021-08-24 16:29 | EDS_ITS ---
HPI History of Present Illness Chief Complaint: Palpitations Informant: patient Onset/Context/Timing Onset: Today Context: Sudden Onset Timing: Continuous Quality: Spacey Location: Generalized Worsened by: Stress Relieved by: Nothing Narrative Narrative: Patient presents with palpitations that began today. 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 Patient states she has some pain into her back between her shoulder blades. Patient states she broke out into a sweat when this happened. Patient states that currently she feels spacey. Patient seems to think that this comes on with stress. Patient is had similar episodes in the past. Patient denies any fevers or chills. Patient admits to some mild shortness of breath with exertion. [facility] Medical History Atherosclerosis of coronary artery without angina pectoris COPD (chronic obstructive pulmonary disease) Diabetes mellitus type II, controlled Essential (primary) hypertension History of non-ST elevation myocardial infarction (NSTEMI) (01/19/09) HLD (hyperlipidemia) Nicotine dependence Obesity (BMI 30-39.9) SVT (supraventricular tachycardia) Home Medications magnesium oxide 400 mg (241.3 mg magnesium) tablet 400 mg PO BID #180 tab 04/23/19 [Rx Last Taken Unknown] biotin 5 mg capsule 5 mg PO DAILY 02/27/20 [History Last Taken Unknown] metoprolol succinate 50 mg tablet,extended release 24 hr 50 mg PO DAILY #30 tab 08/13/20 [Rx Last Taken Unknown] nitroglycerin 0.4 mg sublingual tablet 0.4 mg SUBLINGUAL Q5M PRN #25 tab 10/09/20 [Rx Last Taken Unknown] umeclidinium 62.5 mcg-vilanterol 25 mcg/actuation powdr for inhalation 1 inh INHALATION DAILY ea 11/19/20 [History Last Taken Unknown] clopidogrel 75 mg tablet 75 mg PO DAILY #90 tab 02/03/21 [Rx Last Taken Unknown] atorvastatin 80 mg tablet 80 mg PO QHS #90 tab 02/15/21 [Rx Last Taken Unknown] folic acid 1 mg tablet 1 mg PO DAILY #90 tab 03/03/21 [Rx Last Taken Unknown] lisinopril 10 mg tablet 10 mg PO DAILY #90 tab 05/07/21 [Rx Last Taken Unknown] albuterol sulfate 90 mcg/actuation aerosol inhaler 2 puff INHALATION Q4H PRN g 07/22/21 [History Last Taken Unknown] ascorbic acid (vitamin C) 500 mg tablet 500 mg PO DAILY 07/22/21 [History Last Taken Unknown] cholecalciferol (vitamin D3) 25 mcg (1,000 unit) tablet 25 mcg PO DAILY 07/22/21 [History Last Taken Unknown] fluticasone 250 mcg-salmeterol 50 mcg/dose blistr powdr for inhalation 1 inh INHALATION Q12H PRN 07/22/21 [History Last Taken Unknown] glimepiride 4 mg tablet 4 mg PO DAILY tab 07/22/21 [History Last Taken Unknown] isosorbide mononitrate 30 mg tablet,extended release 24 hr 30 mg PO DAILY #90 tab 07/22/21 [Rx Last Taken Unknown] metformin 500 mg tablet,extended release 24 hr 500 mg PO DAILY tab 07/22/21 [History Last Taken Unknown] mometasone 200 mcg/actuation HFA aerosol inhaler 2 puff INHALATION BID PRN 07/22/21 [History Last Taken Unknown] omega-3 fatty acids 1,000 mg capsule 1,000 mg PO DAILY 07/22/21 [History Last Taken Unknown] turmeric root extract 500 mg capsule 500 mg PO DAILY 07/22/21 [History Last Ej en Unknown] vitamin E (dl, acetate) 180 mg (400 unit) capsule 400 unit PO DAILY cap 07/22/21 [History Last Taken Unknown] Allergy/AdvReac Type Severity Reaction Status Date / Time cephalexin Allergy Hives Verified 07/22/21 08:40 Fish Containing Products Allergy Anaphylaxis Verified 07/22/21 08:40 Penicillins Allergy Anaphylaxis Verified 07/22/21 08:40 venom-honey bee Allergy Shortness Verified 07/22/21 08:40 [bee venom (honey bee)] of breath sulfadiazine AdvReac Severe Unknown Verified 07/22/21 08:40 wellbutrin AdvReac Severe Rash Uncoded 07/22/21 08:40 Family History Father Diabetes Hypertension CAD (coronary artery disease) Hx CABG Myocardial infarction, Onset Age: 63 Cancer Lung Cancer Mother , from aneurysm at age 40 CVA (cerebral vascular accident) Daughter CAD (coronary artery disease) Surgical History History of appendectomy (~02/2021) History of bilateral carpal tunnel release History of colonoscopy (~2014) History of coronary artery stent placement (01/19/09) History of hysterectomy History of left heart catheterization (11/25/15) Social History Smoking Status: Current every day smoker tobacco type: cigarettes alcohol intake: never substance use type: does not use caffeine: Yes Type: coffee what type of physical activity do you participate in: none seatbelt use: always do you feel safe at home: Yes ROS ROS ED Constitutional Constitutional ED: Reports sweats; Denies chills or fever(s) Eyes Eyes: Denies blurry vision or change in vision ENT ENT ED: Denies rhinorrhea or sore throat Cardiovascular Cardiovascular: Reports chest pain and palpitations Respiratory/Chest Respiratory/Chest: Denies cough or dyspnea Gastrointestinal Gastrointestinal: Denies nausea or vomiting Genitourinary Genitourinary ED: Denies dysuria or hematuria Musculoskeletal Musculoskeletal: Denies back pain or neck pain Integumentary Denies abscess or rash Neurologic Neurologic: Denies headache(s) or weakness Allergic/Immunologic Allergic/Immunologic ED: Denies mouth swelling or urticaria EXAM Physical Exam Const Vital Signs: 08/24/21 16:05 08/24/21 16:14 08/24/21 16:17 Temperature 96.2 F L Temperature Source Temporal Pulse Rate 167 H 160 H Respiratory Rate 20 H 21 H Respiratory Effort Normal Respiratory Pattern Tachypnea Blood Pressure 121/77 H 110/81 H Blood Pressure Mean 91 90 Pulse Ox 98 95 Oxygen Delivery Method Room Air Room Air 08/24/21 16:38 08/24/21 17:24 08/24/21 18:13 Temperature Temperature Source Pulse Rate 99 94 Respiratory Rate 26 H 24 H Respiratory Effort Respiratory Pattern Blood Pressure 132/65 H 123/59 H Blood Pressure Mean 87 80 Pulse Ox 98 98 Oxygen Delivery Method Room Air Room Air Room Air 08/24/21 19:20 Temperature Temperature Source Pulse Rate 95 Respiratory Rate 16 Respiratory Effort Respiratory Pattern Blood Pressure 106/51 L Blood Pressure Mean 69 Pulse Ox 97 Oxygen Delivery Method Room Air Positive well nourished and well developed General Appearance ED: well developed HEENT Reports moist mucous membranes Neck supple and no JVD Resp normal respiratory effort and clear to auscultation bilaterally Cardio regular rhythm and no murmurs Rate: tachycardic GI normal to inspection, nondistended, normoactive bowel sounds and non-tender Palpation: soft Extremity normal to inspection General Extremety ED: Negative for edema or tenderness General Extremity: Negative for edema Neuro oriented x3, CN's II-XII intact bilaterally and no sensory deficits noted Sensorium / Orientation: alert Motor Exam: strength 5/5 throughout Psych mental status grossly normal Skin no rashes or lesions noted MDM MDM MDM Narrative Medical decision making narrative: Patient was placed on continuous cardiac and pulse returned monitors. Initial EKG shows supraventricular tachycardia with a rate of 156. There are nonspecific ST-T wave changes. There is no ST elevation noted. Patient was given 6 mg of adenosine. Patient converted to a sinus rhythm with a rate of 110. Patient feels better after this. Repeat EKG was obtained. On my interpretation, shows a sinus tachycardia with a rate of 110. There are no acute ST or T wave changes. [place] interval, QRS interval, QTC intervals are normal. [place] is normal. CBC shows a mild leukocytosis of 11.7. Basic metabolic profile showed an elevated glucose of 368. Initial high- sensitivity troponin was normal at 3. 2-hour repeat high-sensitivity troponin was normal at 6. Portable 1 view chest x-ray was obtained. On my interpretation, lung nguyen are clear. There is normal cardiac silhouette. Bony thorax is normal. There is no acute process noted. Radiologist also interpreted the x-ray and agrees. Patient remained in normal sinus rhythm on the monitoring coordinator during her entire emergency department stay. Patient feels better. Patient was instructed to follow-up with her primary care physician in 5 to 7 days. Patient understood and was agreeable with the plan. All questions were answered. Lab Data Attestation: I reviewed the patient's lab results. Labs: Laboratory Results - last 24 hr 08/24/21 08/24/21 08/24/21 16:35 16:35 18:36 WBC 11.7 H RBC 4.73 Hgb 15.6 H Hct 46.4 MCV 98.1 MCH 33.0 H MCHC 33.6 RDW Std Deviation 45.5 H RDW Coeff of Hang 12.6 Plt Count 266 MPV 11.3 Immature Gran % (Auto) 0.400 Neut % (Auto) 53.0 Lymph % (Auto) 28.6 [place] % (Auto) 6.8 Eos % (Auto) 10.6 H Baso % (Auto) 0.6 Absolute Neuts (auto) 6.2 Absolute Lymphs (auto) 3.35 Nucleated RBC % 0 Sodium 140 Potassium 4.1 Chloride 107 Carbon Dioxide 28.0 Anion Gap 5 BUN 14 Creatinine 0.97 Estim Creat Clear Calc 46.56 Est GFR (MDRD) Af Amer 74 Est GFR (MDRD) Non-Af 61 BUN/Creatinine Ratio 14.5 Glucose 368 H Calcium 9.7 Troponin I High Sens 3 6 Radiography Chest X-Ray - ED: 1 View, Read by ED Physician, Read by Radiologist and No Acute Disease Diagnostic Testing: Clinical Impression(s) from Imaging Studies Chest X-Ray 08/24/21 16:47 IMPRESSION: No acute radiographic abnormalities. Electronically Signed: Brad Reed MD at 17:04 EDT , EKG Initial EKG: Attestation: I personally reviewed and interpreted this EKG as follows: Interpretation: SVT (156) and Non-Specific ST Changes Follow-up EKG: Attestation: I personally reviewed and interpreted this EKG as follows: Interpretation: No Acute Injury Pattern and Sinus Tachycardia (110) Prior EKG tracings: available for review Prior: Unchanged (11/25/2020) Discharge Plan Triage Chief Complaint: Palpitations Other Complaint: Shortness of Breath ED Provider: Cuba Shea Dx/Rx/DC Orders Clinical Impression: Supraventricular tachycardia Instructions: ED Understanding Supraventricular Tachycardia (SVT) Prescriptions: No Action biotin 5 mg capsule 5 mg PO DAILY RF: 0 vitamin E (dl, acetate) 180 mg (400 unit) capsule 400 unit PO DAILY RF: 0 Anoro Ellipta 62.5-25 mcg/actuation blister with device 1 inh inhalation DAILY RF: 0 glimepiride 4 mg tablet 4 mg PO DAILY RF: 0 metformin 500 mg tablet extended release 24 hr 500 mg PO DAILY RF: 0 albuterol sulfate 90 mcg/actuation HFA aerosol inhaler 2 puff inhalation Q4H PRNRF: 0 Asmanex HFA 200 mcg/actuation HFA aerosol inhaler 2 puff inhalation BID PRNRF: 0 fluticasone propion-salmeterol [Advair Diskus] 250-50 mcg/dose blister with device 1 inh inhalation Q12H PRNRF: 0 turmeric root extract 500 mg capsule 500 mg PO DAILY RF: 0 omega-3 fatty acids 1,000 mg capsule 1,000 mg PO DAILY RF: 0 cholecalciferol (vitamin D3) 25 mcg (1,000 unit) tablet 25 mcg PO DAILY RF: 0 ascorbic acid (vitamin C) 500 mg tablet 500 mg PO DAILY RF: 0 isosorbide mononitrate 30 mg tablet extended release 24 hr 30 mg PO DAILY Qty: 90 RF: 3 magnesium oxide 400 mg (241.3 mg magnesium) tablet 400 mg PO BID Qty: 180 RF: 3 metoprolol succinate 50 mg tablet extended release 24 hr 50 mg PO DAILY Qty: 30 RF: 11 nitroglycerin [Nitrostat] 0.4 mg tablet, sublingual 0.4 mg SUBLINGUAL Q5M PRN (Reason: chest pain) Qty: 25 RF: 3 clopidogrel 75 mg tablet 75 mg PO DAILY Qty: 90 RF: 3 atorvastatin 80 mg tablet 80 mg PO QHS Qty: 90 RF: 3 folic acid 1 mg tablet 1 mg PO DAILY Qty: 90 RF: 3 lisinopril 10 mg tablet 10 mg PO DAILY Qty: 90 RF: 3 Primary Care Provider: Eduardo Alvarez Referrals: Eduardo Alvaerz MD [Primary Care Provider] - 5-7 Days Disposition Disposition: Home, Self Care
--- NOTE | 2021-08-24 16:32 | EKG12_ITS ---
Test Reason : CP Blood Pressure : / mmHG Vent. Rate : 110 BPM Atrial Rate : 110 BPM P-R Int : 156 ms QRS Dur : 084 ms QT Int : 352 ms P-R-T Axes : 064 090 040 degrees QTc Int : 476 ms Sinus tachycardia Otherwise normal ECG Confirmed by MIRLANDE SANCHEZ, DEVAN ([id number]), editor farm journal [employer]GG COLINDRES ([id number]) on 08/26/2021 9:56:18 AM Referred By: ALEN Confirmed By:DEVAN NOGUEIRA MD
--- NOTE | 2021-08-24 16:33 | ED.RN ---
PT HR 160'S SUSTAINED. ED PHYSICIAN AT BEDSIDE. 1624: 6 MG ADENOSINE GIVEN IVP FOLLOWED BY FLUSH TALISHA JASSO. PT TOLERATED WELL. 1630: HR 109, PT STATES SHE FEELS BETTER. FAMILY IN WAITING ROOM
--- NOTE | 2021-08-24 16:36 | EKG12_ITS ---
Test Reason : CP Blood Pressure : / mmHG Vent. Rate : 156 BPM Atrial Rate : 163 BPM P-R Int : 000 ms QRS Dur : 072 ms QT Int : 290 ms P-R-T Axes : 000 094 -12 degrees QTc Int : 467 ms Supraventricular tachycardia Nonspecific ST and T wave abnormality Confirmed by MIRLANDE SANCHEZ, DEVAN ([id number]), web editor [employer]INDRES ([id number]) on 08/26/2021 9:33:39 AM Referred By: ALEN Confirmed By:DEVAN NOGUEIRA MD
[2021-08-24] MEDS: 0.9% Normal Saline 1,000 ML 1000 ML IV (16:40)
[2021-08-24] MEDS: Aspirin 81 MG TAB.CHEW 324 MG PO (16:41)
[2021-08-24] MEDS: Adenosine 6 MG/2 ML Syringe IV (16:43)
--- NOTE | 2021-08-24 16:47 | RAD_ITS ---
INDICATION: chest pain EXAMINATION/TECHNIQUE: X-RAY - XR Chest 1 View COMPARISON: 11/25/2020. FINDINGS: The lungs are clear. Tortuous and calcified thoracic aorta. The heart is not enlarged. No pleural effusion or pneumothorax. Degenerative changes of the thoracic spine. RAD/Chest 1 View (Portable) IMPRESSION: No acute radiographic abnormalities. Electronically Signed: Brad Reed MD at 17:04 EDT ,
[2021-08-24 16:50] LABS: Absolute Lymphocyte Count 3.35 X10^3/uL (0.83-4.51); Absolute Neutrophil Count 6.2 X10^3/uL (2.0-7.7); Basophil# 0.07 X10^3/uL; Basophil% 0.6 % (0-1); Eosinophil# 1.24 X10^3/uL; Eosinophils% 10.6 % (0-5); Hematocrit 46.4 % (37-47); Hemoglobin 15.6 g/dL (12.0-15.0); Lymphocyte # 3.35 X10^3/ul (0.83-4.51); Lymphocyte % 28.6 % (19-41); Mean Corp Hgb Conc 33.6 g/dL (32-36); Mean Corpuscular Volume 98.1 fL (81-99); Mean Platelet Vol. 11.3 fl (6.2-12.0); Monocyte% 6.8 % (0-10); NRBC Flagged by Analyzer 0 % (0-5); Neutrophil # 6.21 X10^3/uL (2.7-7.7); Platelet Count 266 K/mm3 (150-450); RBC Distribution Width CV 12.6 % (11.6-14.6); RBC Distribution Width SD 45.5 fl (35.1-43.9); Red Blood Count 4.73 M/mm3 (4.2-5.4); White Blood Count 11.7 K/mm3 (4.4-11.0)
[2021-08-24 17:18] LABS: Anion Gap 5 (5-15); BUN 14 mg/dL (7-18); BUN/Creat Ratio 14.5 RATIO (10-20); Calcium,Total 9.7 mg/dL (8.5-10.1); Chloride 107 mmol/L (98-107); Creatinine, Serum 0.97 mg/dL (0.55-1.02); EST Glomerular Filtration Rate 61 mL/min (>60); Est Glom Filt Rate - Afr Amer 74 mL/min (>60); Estimated Creatinine Clearance 46.56 ml/min; Glucose 368 mg/dL (74-106); Potassium 4.1 mmol/L (3.5-5.1); Sodium Level 140 mmol/L (136-145); Troponin-I HS 3 pg/mL (3.0-54.0)
[2021-08-24 17:24] VITALS: BP 132/65; PULSE 99; RESP 26; O2SAT 98
[2021-08-24 18:13] VITALS: BP 123/59; PULSE 94; RESP 24; O2SAT 98
[2021-08-24 18:59] LABS: Troponin-I HS 6 pg/mL (3.0-54.0)
[2021-08-24 19:20] VITALS: BP 106/51; PULSE 95; RESP 16; O2SAT 97
[2021-08-24 19:34] VITALS: BP 110/60; PULSE 94; RESP 18; O2SAT 99
== END 2021-08-24 19:35 | disposition home or self-care (01) ==
PROVIDERS: Emergency Provider Emergency Medicine; PCP Family Medicine; Visit Provider Emergency Medicine
DX: I47.1 Supraventricular tachycardia (principal); I25.10 Atherosclerotic heart disease of native coronary artery without angina pectoris; Z95.5 Presence of coronary angioplasty implant and graft
CPT/HCPCS: 71045; 80048; 84484; 85025; 93005; 96374; 99284; J7030; A4216; J0153

== ENCOUNTER → 2022-02-14 | Outpatient (CLI) | payer MEDICARE, SELFPAY ==
--- NOTE | 2022-02-14 09:26 | RAD_ITS ---
STUDY: X-RAY - LEFT HAND REASON FOR EXAM: Female, 66 years old. Pain. TECHNIQUE: 3 view(s) of the hand. COMPARISON: None. FINDINGS: Osteopenia. Mild arthrosis of the distal radial ulnar joint. Mild arthrosis of the radiocarpal articulation. Mild arthrosis of the radiocarpal row. Mild arthrosis of the MCP and IP joints. The soft tissue structures are unremarkable. RAD/Hand Min 3 Views IMPRESSION: Osteopenia with diffuse mild osteoarthritic changes. No acute abnormality or erosive changes. Electronically Signed: Jose Mccoy, at 11:57 EDT ,
[2022-02-14 12:43] LABS: ALB/GLOB Ratio 1.1 RATIO (0.9-2.4); AST(SGOT) 20 U/L (15-37); Alanine Aminotransfer ALT/SGPT 24 U/L (13-56); Albumin, Serum 3.8 g/dL (3.2-5.0); Alkaline Phosphatase 87 U/L (45-117); Anion Gap 6 (5-15); BUN 13 mg/dL (7-18); BUN/Creat Ratio 17.5 RATIO (10-20); Calcium,Total 9.6 mg/dL (8.5-10.1); Chloride 109 mmol/L (98-107); Cholesterol 130 mg/dL (200); Creatinine, Serum 0.74 mg/dL (0.55-1.02); EST Glomerular Filtration Rate 83 mL/min (>60); Est Glom Filt Rate - Afr Amer 100 mL/min (>60); Globulin 3.4 g/dL (2.2-4.2); Glucose 133 mg/dL (74-106); High Density Lipoprotein 39 mg/dL; Magnesium 2.3 mg/dL (1.6-2.6); Potassium 3.6 mmol/L (3.5-5.1); Protein, Total 7.2 g/dL (6.4-8.2); Sodium Level 143 mmol/L (136-145); Triglycerides 134 mg/dL; Very Low Density Lipoprotein 27 mg/dL (5-40)
== END | disposition home or self-care (01) ==
LOC: MTLAB 09:24
PROVIDERS: PCP Family Medicine; Referring Provider Family Medicine; Visit Provider Family Medicine
DX: E11.9 Type 2 diabetes mellitus without complications (principal); M79.642 Pain in left hand
CPT/HCPCS: 36415; 73130; 80053; 80061; 83735

== ENCOUNTER → 2022-05-24 | Outpatient (CLI) | payer MEDICARE, SELFPAY ==
--- NOTE | 2022-05-24 14:33 | RAD_ITS ---
EXAM: XR RIGHT WRIST COMPLETE, 3 OR MORE VIEWS CLINICAL INDICATION: R wrist. distal radial pain TECHNIQUE: Frontal, lateral and oblique views of the right wrist. This report was created using [employer] report generation technology. COMPARISON: None. FINDINGS: BONES/JOINTS: Unremarkable. No acute fracture. No subluxation. Normal alignment. Preservation of the joint space. No sclerotic or destructive changes observed. SOFT TISSUES: Unremarkable. No soft tissue swelling or gas. No radiopaque foreign body. RAD/Wrist min 3 Views IMPRESSION: Negative right wrist x-rays. Electronically Signed: Carlos Vital MD at 22:35 EST ,
== END | disposition home or self-care (01) ==
LOC: MTRAD 14:33
PROVIDERS: PCP Family Medicine; Referring Provider Family Medicine; Visit Provider Family Medicine
DX: M65.9 Synovitis and tenosynovitis, unspecified (principal)
CPT/HCPCS: 73110

== ENCOUNTER → 2023-01-03 | Outpatient (CLI) | payer MEDICARE, SELFPAY ==
--- NOTE | 2023-01-03 13:22 | CT_ITS ---
EXAM: CT CHEST, LUNG CANCER SCREENING WITHOUT INTRAVENOUS CONTRAST CLINICAL INDICATION: HX OF NICOTINE DEPENDENCE TECHNIQUE: Helically acquired images were obtained of the chest without intravenous contrast using low dose (LDCT) lung cancer screening protocol. This CT exam was performed using one or more of the following dose reduction techniques: automated exposure control, adjustment of the mA and/or kV according to patient size, and/or use of iterative reconstruction technique. COMPARISON: 10/26/2020 FINDINGS: LUNGS AND PLEURAL SPACES: Pleural-based nodule in the left upper lobe anteriorly that measures 1.3 x 0.9 x 1.4 cm on today''s exam. This has increased in size from the reference examination dated 1.0 x 0.5 x 1.3 cm. There has developed a new spiculated nodule in the right upper lobe that measures 1.4 x 1.6 x 1.7 cm. No pneumothorax. HEART: Unremarkable. Heart size is normal. No pericardial effusion. No significant coronary artery calcifications. MEDIASTINUM: Unremarkable. No mediastinal or hilar adenopathy. Esophagus is unremarkable. No hiatal hernia. THYROID: Unremarkable. No thyroid lesions. BONES/JOINTS: Unremarkable. No suspicious lytic or blastic abnormality. VASCULATURE: Unremarkable. Thoracic aorta is non-dilated. LYMPH NODES: Unremarkable. No enlarged lymph nodes. CT/Low Dose CT Lung Screening IMPRESSION: Interval development of a spiculated nodule right upper lobe suspicious for. There is also been mild interval increase in size of a pleural-based slightly spiculated nodule in the left upper lobe. Lung-RADS score: 4X - Very Suspicious. There are additional features or imaging findings that increase the suspicion of malignancy. Recommend chest CT with or without contrast, PET/CT and/or tissue sampling depending on the probability of malignancy and comorbidities. PET/CT may be used when there is a >=8 mm solid component. For new large nodules that develop on an annual repeat screening CT, a 1 month LDCT may be recommended to address potentially infectious or inflammatory conditions. Electronically Signed: Carlos Vital MD at 23:54 EDT ,
== END | disposition home or self-care (01) ==
LOC: CT 13:20
PROVIDERS: PCP Family Medicine; Referring Provider Internal Medicine Pulmonary Disease; Visit Provider Internal Medicine Pulmonary Disease
DX: Z87.891 Personal history of nicotine dependence (principal)
CPT/HCPCS: 71271

== ENCOUNTER → 2023-01-05 | Outpatient (CLI) | payer MEDICARE, SELFPAY ==
--- NOTE | 2023-01-05 14:35 | STRESSREP ---
Stress Test Report Pharmacologic myocardial perfusion stress test. 67-year-old lady with a history of chest pain Resting EKG demonstrates sinus rhythm with a rate of 81 bpm. Resting blood pressure is 122/58 mmHg. 0.4 mg of regadenoson was infused per usual protocol followed by rapid intravenous saline flush injection. Continuous EKG monitoring was performed. The maximum heart rate was 100 bpm which was 66% of max impacted heart rate the maximum workload was 1 metabolic equivalent. At rest there were no ST or T wave changes noted to suggest ischemia and at peak infusion nonspecific ST changes were noted which did not meet the criteria for ischemia. No clinical angina is noted. The final blood pressure was 126/62 mmHg. Myocardial perfusion protocol. 11.6 mCi of technetium 99m sestamibi was injected at rest. 0.4 mg of regadenoson was infused per usual protocol. At peak infusion 34.7 mCi of technetium 99m sestamibi was injected stress images were obtained stress and rest images were reconstructed and compared in the short axis vertical long and horizontal long axis. Gated images were also obtained. Perfusion SPECT analysis: Review of the stress images demonstrate normal uptake of tracer noted in all areas of the myocardium. The resting images similar demonstrated normal uptake of tracer noted in all areas of the myocardium. No areas of reversibility are noted to suggest ischemia and no previous infarct is noted. Gated SPECT analysis: The gated ejection fraction is 78%. Conclusion: Normal pharmacologic myocardial perfusion stress test. Preserved ejection fraction.
== END | disposition home or self-care (01) ==
LOC: CVS 06:37
PROVIDERS: PCP Family Medicine; Referring Provider Nurse Practitioner Family; Visit Provider Nurse Practitioner Family
DX: R07.9 Chest pain, unspecified (principal); I47.1 Supraventricular tachycardia; I10 Essential (primary) hypertension; E78.5 Hyperlipidemia, unspecified; Z95.5 Presence of coronary angioplasty implant and graft
CPT/HCPCS: 78452; 93017; A9500; A4216; J0153; J2785

== ENCOUNTER → 2023-01-31 | Outpatient (CLI) | payer MEDICARE, SELFPAY ==
--- NOTE | 2023-01-31 08:00 | PET_ITS ---
EXAMINATION: FDG PET-CT INDICATIONS: A 67-year-old female with history of pulmonary nodularity. COMPARISON EXAMINATION: CT of the chest report dated 01/03/23 INDEX LESION SIZE SUV INTERPRETATION Right lower anteromedial lung zone, right middle lobe 17.6-mm 9.2 Fulfills quantitative criteria for viable neoplasm Left upper anterior lung field, left upper lobe 14.2-mm 6.2 Fulfills quantitative criteria for viable neoplasm Mediastinum, right thoracic perihilum 17.2-mm 5.6 Fulfills quantitative criteria for viable neoplasm TECHNIQUE: Following the intravenous administration of 13.41 mCi of F-18 deoxyglucose via the right hand, multiplanar image acquisitions of the neck, chest, abdomen and pelvis to level of mid thigh, obtained at one hour post radiopharmaceutical administration contemporaneously interpreted with the current CT of the neck, chest, abdomen and pelvis, to level of mid thigh, dated 01/31/[address] of the chest report dated 01/03/23 reveals: BLOOD GLUCOSE LEVEL:?? 196 mg/dl?HEIGHT:?63 inches?WEIGHT: 180 lbs. FINDINGS: Head/Neck: There is no evidence of abnormal increased glucose metabolism in the pharyngeal mucosal space, parapharyngeal space, bilateral-lateral and anterior neck, hypopharynx and distribution of the laryngeal structures. The visualized portion of the cerebral cortical-subcortical structures demonstrate symmetric and preserved glucose metabolism. Prominent radiopharmaceutical concentration is defined in the oral cavity likely representing activated leukocytes associated with dental caries formation. CHEST: Facilitated FDG uptake is noted in the right lower anteromedial lung zone, right middle lobe, generating a calculated maximal standard uptake value of 9.2. The maximal axial diameter of the metabolic, morphologic abnormality is 17.6-mm. Facilitated uptake is identified in the left upper anteromedial lung zone, left upper lobe, generating a calculated maximal standard uptake value of 6.2. The maximal axial diameter of the metabolic, morphologic abnormality is 14.2-mm. Facilitated FDG uptake is noted in the region of the right thoracic perihilum and right lower paratracheal lymph nodes involving lymph node station 10R and 4R respectively. The calculated maximal standard uptake value is 5.6. The maximal axial diameter of the metabolic, morphologic abnormality is 17.2-mm. Pertinent chest CT findings are as follows. Bilateral axillary and additional mediastinal soft tissue densities reveal no evidence of increased FDG uptake. There is atherosclerotic calcification defined in the thoracic aorta without evidence of dilatation-aneurysm formation. Coronary arterial calcification is observed. A parenchymal density defined in the right mid-lower lung zone is non-glucose avid. Abdomen/Pelvis: Normal physiologic distribution of the radiopharmaceutical is apparent in the hepatic (4.2) and splenic parenchyma, both renal units, bladder and visualized intestinal tract. Diffuse radiopharmaceutical concentration is noted in all four quadrants of the abdomen and pelvis. Pertinent abdomen and pelvis CT findings are as follows. There is atherosclerotic calcification defined in the abdominal aorta without evidence of dilatation-aneurysm formation. Pelvic arterial calcification is observed. Right and left inguinal soft tissue densities demonstrate no evidence of increased tracer uptake. Calcified phlebolith formation is noted in the right lower hemipelvis. The uterus appears surgically absent. Occasional colonic diverticula are encountered without evidence of diverticulitis. Skeletal: Degenerative changes are noted in the cervical, thoracic and lumbar spine without evidence of increased radiopharmaceutical concentration. PET/PET/CT Tumor Base -Thigh Init IMPRESSION: 1. ABNORMAL EXAMINATION INDICATIVE OF MALIGNANT VIABLE NEOPLASM. 2. Increased radiopharmaceutical concentration defined in the right and left hemithorax pulmonary parenchyma fulfill quantitative criteria for malignant transformation. 3. Facilitated uptake noted in the mediastinal structures and right thoracic perihilum fulfills quantitative criteria for malignant transformation. (Juaquin et al, Journal of Clinical Oncology 16:2142, 1998). Electronic Signature Alvin Michelle D.O. Accurate Quantification of SUVs for this report are calculated using the exclusive [employer] Technology, ([place]. Patent No. [phone] [place] patent [phone] ). Standardization and correction of the FDG SUV metric exclusively available with [employer] intellectual property, allow for vendor non-specific objective quantitative sequential FDG PET-CT comparison and otherwise unobtainable optimization of the sensitivity and specificity of the examination. [email or web address] Electronically Signed: Alvin Michelle DO at 20:43 EDT ,
== END | disposition home or self-care (01) ==
LOC: ONC 07:42
PROVIDERS: PCP Family Medicine; Referring Provider Internal Medicine Pulmonary Disease; Visit Provider Internal Medicine Pulmonary Disease
DX: R91.1 Solitary pulmonary nodule (principal)
CPT/HCPCS: 78815; A9552

== ENCOUNTER 2023-02-08 12:46 | Day surgery (SDC) | payer MEDICARE, SELFPAY ==
[2023-02-08] VITALS (8 sets, daily range): BP systolic 108–143; BP diastolic 48–113; PULSE 85–106; RESP 14–16; TEMP 35.9–36.6; O2SAT 88–98; BMI 32.8
--- NOTE | 2023-02-08 | LUNG_PTH ---
PATIENT: CARINE NEWTON LOC: EN U#:[id number] AGE/SX: 67/F ROOM: RE02/08/[address]: Dr. Navneet Simmons MD : 1955 BED: DIS: 02/08/2023 SPEC #: [id number] RECD: 02/08/23 15:05 STATUS: GENNY ARIEL #: [id number] GORGE: 02/08/23 00:[address]: Navneet Simmons V DEPT: SURGICAL PATHOLOGY RECD BY: Svetlana Toth ENTERED: 02/09/23 10:01 SP TYPE: LUNG BX OTHR DR: Dr. Eduardo Alvarez MD Tissues: A - Lung, NOS B - Lung, NOS Procedures: Elastin Stain (control) Trichrome (control) Special Stain Group II Special Stain Group I Surgery Specimen Level IV AFB Stain (control) Retic (control) Iron Stain (control) HEADER OPERATION: Bronchoscopy with biopsy (MAC), fluoroscopy, brushings PRE-OP DIAGNOSIS: Solitary pulmonary nodule, COPD TISSUE SUBMITTED: A - Right middle lobe transbronchial biopsy, B - Right middle lobe transbronchial biopsy MICROSCOPIC DIAGNOSIS A. Right middle lobe lung, transbronchial biopsy: Minimal septal fibrosis. Fragments of benign cartilage. Negative for acid-fast bacilli. No evidence of malignancy. See comment. B. Right middle lobe lung, transbronchial biopsy: Fragments of benign bronchial and subbronchial tissue. No evidence of malignancy. Negative for acid-fast bacilli. See comment. AM:javan 02/10/2023 COMMENT A. AFB stain with matched control was used in the evaluation of this case. Immunohistochemistry ([id number]) supports the above diagnosis. Iron, reticulin, elastin and trichrome stains with matched controls support the above diagnosis. B. AFB stain with matched control was used in the evaluation of this case. Please see corresponding cytology specimen [id number]. MICROSCOPIC DESCRIPTION Slides are reviewed. GROSS DESCRIPTION A - Received in fixative is one container labeled with the patient's name and designated right middle lobe biopsy. The specimen consists of multiple irregular fragments of light jung soft tissue that in aggregate measure 0.8 x 0.2 x 0.1 cm. The specimen is totally submitted in one cassette. B - Received in fixative is one container labeled with the patient's name and designated endobronchial right middle lobe ashutosh biopsy. The specimen consists of two irregular fragments of light jung soft tissue that in aggregate measure 1.0 x 0.1 x 0.1 cm. The specimen is totally submitted in one cassette. / SJ:rg 02/09/2023 TC:5 CPT: 44986 x2, 67784 x2, 17787 x4
--- NOTE | 2023-02-08 | IMM_PTH ---
PATIENT: CARINE NEWTON LOC: EN U#:[id number] AGE/SX: 67/F ROOM: RE02/08/[address]: Dr. Navneet Simmons MD : 1955 BED: DIS: 02/08/2023 SPEC #: [id number] RECD: 02/10/23 13:56 STATUS: GENNY REQ #: [id number] GORGE: 02/08/23 00:[address]: Navneet Simmons V DEPT: IMMUNOHISTOCHEMISTRY RECD BY: Genoveva Villegas ENTERED: 02/10/23 13:58 SP TYPE: IMMUNO OTHR DR: Dr. Eduardo Alvarez MD Tissues: A - Right middle lobe of lung, NOS Procedures: CK20 (add) CK5-6 (add) KI-67 (add) P53 (add) P40 (add) CD68 (ADD) CK7 (initial) PHYSICIAN & INSTITUTION [place] [id number] SPECIMEN INFORMATION: Tissue Source: A - Right middle lobe Clinical Info: Solitary pulmonary nodule, COPD Specimen Number: [id number] CPT code: 29915, 48865 x6 METHODOLOGY: Deparaffinized sections of prefer/formalin-fixed tissue or PAP/DQ stained slides are incubated with monoclonal/polyclonal antibodies/oligonucleotide probes. Localization is made via biotin free immunoperoxidase method. Appropriate controls are performed and reacted as expected. Results on target cell population are indicated in the following table: RESULTS: ANTIBODY / CLONE RESULT Block A CK7 (OV-TL12/30) positive CK20 (KS20.8) negative CD68 (KP-1) positive, focal CK5-6 (D5 & 1684) negative P40 (BC28) negative P53 (DO-7) negative Ki-67 (30-9) negative These tests were developed and their performance characteristics determined by [facility]. They may not have been cleared or approved by the U.S. Food and Drug Administration. The FDA has determined that such clearance or approval is not necessary. The above immunohistochemical/dualISH markers are ordered and reviewed by the Pathologist. INTERPRETATION: Right middle lobe lung, biopsy: No evidence of malignancy. AM:javan 02/13/2023
--- NOTE | 2023-02-08 | FLU_PTH ---
PATIENT: CARINE NEWTON LOC: EN U#:[id number] AGE/SX: 67/F ROOM: RE02/08/[address]: Dr. Navneet Simmons MD : 1955 BED: DIS: 02/08/2023 SPEC #: [id number] RECD: 02/08/23 15:05 STATUS: GENNY ARIEL #: [id number] GORGE: 02/08/23 00:[address]: Navneet Simmons V DEPT: CYTOLOGY RECD BY: Svetlana Toth ENTERED: 02/09/23 10:00 SP TYPE: Fluid OTHR DR: Dr. Eduardo Alvarez MD Tissues: A - Bronchus of right upper lobe B - Bronchus of right middle lobe C - Bronchus of right middle lobe D - Bronchus of right middle lobe Procedures: Special Stain Group II Special Stain Group I Surgery Specimen Level IV AFB Stain (control) Cytospin Fluid Cytology Other HEADER OPERATION: Bronchus (MAC) with biopsy, fluoroscopy, brushings PRE-OP DIAGNOSIS: Solitary pulmonary nodule, COPD TISSUE SUBMITTED: A - Bronchioalveolar lavage, B - Bronchioalveolar lavage, C - [place], D - RML x6 slides DIAGNOSIS CYTOLOGY A. Bronchioalveolar lavage (cytospin and cell block): Negative for malignant cells. Negative for acid-fast bacilli. See comment. B. Bronchioalveolar lavage (cytospin and cell block): Negative for malignant cells. Negative for acid-fast bacilli. See comment. C. Lung, brushings (smears and cell block): Negative for malignant cells. D. Right middle lobe of lung, brushings (smears): Negative for malignant cells. AM:javan 02/10/2023 COMMENT A & B. AFB stain with matched control was used in the evaluation of this case. Please correlate with surgical specimen [id number]. CYTOLOGY STUDY Slides are reviewed. CYTOLOGY GROSS A - Received is 60 ml of red cloudy fluid labeled with the patient's name and and designated per the requisition as BAL. Submitted for cytology preparation including cell block. B - Received is 25 ml of red cloudy fluid labeled with the patient's name and and designated per the requisition as BAL. Submitted for cytology preparation including cell block. C - Received is a metallic endoscopic cytobrush with adherent minute fragments of jung-red tissue brush in 2 ml of clear red fluid and labeled with the patient's name and and designated per the requisition as brush. The material is dislodged from the brush and submitted for cytology preparation including cell block. D - Received are six smears labeled with the patient's name and designated per the requisition as RML. Submitted for staining. / javan 02/09/2023 TC:5 CPT: 99074 x3, 07508 x3, 56806, 49665 x2
--- NOTE | 2023-02-08 12:45 | RAD_ITS ---
STUDY: Intraoperative fluoroscopic services. REASON FOR EXAM: Female, 67 years old. BRONCHOSCOPY WITH BX FLUOROSCOPY TIME (if supplied): ( 6 minutes and 42 seconds ) minutes/seconds. 67.19 mGy TECHNIQUE: Fluoroscopic services for right-sided bronchoscopy. COMPARISON: None. RAD/Fluoroscopy 1 Hr or Less IMPRESSION: Fluoroscopic services provided for bronchoscopy. Electronically Signed: Chacorta Whitt MD at 15:06 EDT ,
[2023-02-08] MEDS: Lactated Ringers 1,000 ML 15 ML IV (13:17)
[2023-02-08 13:57] LABS: Bedside Glucose 167 mg/dL (74-106)
[2023-02-08] MEDS: Phenylephrine 0.25% 15 ML NASAL.SRY 15 SPRAY NASAL (13:58)
[2023-02-08] MEDS: Lidocaine Jelly 2% 20 ML Syringe (URO-JET) 1 APPLIC (13:58)
[2023-02-08] MEDS: Lidocaine 2% (5ml sdv) 5 ML VIAL.MPF (14:03)
--- NOTE | 2023-02-08 14:50 | RAD_ITS ---
STUDY: X-RAY CHEST REASON FOR EXAM: Female, 67 years old. Post bronch TECHNIQUE: Single AP portable view of the chest. COMPARISON: Comparison is made with prior study dated August 24, 2021. FINDINGS: EKG electrodes are seen. Hyperinflation. The lungs are clear. There is no demonstrated pleural abnormality. Normal size heart. Normal mediastinum and zheng. Normal visualized pulmonary arteries. Normal visualized aortic arch and descending thoracic aorta. Normal visualized thoracic spine. Normal visualized ribs, clavicles, and shoulders. There is no demonstrated abnormality of the visualized soft tissue structures of the upper abdomen. RAD/Chest 1 View IMPRESSION: Hyperinflation. No evidence of pneumothorax. Electronically Signed: Chacorta Whitt MD at 15:26 EDT ,
--- NOTE | 2023-02-08 14:52 | OP.BRONCH_ITS ---
Patient Name: Dominique Leal Procedure Date: 02/08/2023 1:13 PM Date of : 1955 Age: 67 Procedure: Bronchoscopy Indications: Right middle lobe nodule Providers: Navneet Simmons MD Referring MD: Navneet Simmons MD Medicines: Lidocaine applied to nares and subglottic space Complications: No immediate complications Procedure: Pre-Anesthesia Assessment: - A History and Physical has been performed. The patient's medications, allergies and sensitivities have been reviewed. After I obtained informed consent, the scope was passed under direct vision. Throughout the procedure, the patient's blood pressure, pulse, and oxygen saturations were monitored continuously. The bronchoscope was introduced through the left nostril and advanced to the tracheobronchial tree of both lungs. The procedure was accomplished without difficulty. The patient tolerated the procedure well. The total duration of the procedure was 37 minutes. Moderate Sedation: An independent trained observer was present and continuously monitored the patient. Findings: The nasopharynx/oropharynx appears normal. The larynx appears normal. The vocal cords appear normal. The subglottic space is normal. The trachea is of normal caliber. The ashutosh is sharp. The tracheobronchial tree of the right lung was examined to at least the first subsegmental level. Bronchial mucosa and anatomy in the right lung are normal; there are no endobronchial lesions, and no secretions. Right Lung Abnormalities: Edema was found in the right middle lobe. The bronchoscope was advanced until wedged at the desired location for bronchoalveolar lavage. BAL was performed in the RML medial segment (B5) of the lung and sent for cell count, bacterial culture, viral smears & culture, and fungal & AFB analysis and cytology. An endobronchial biopsy of a lesion was performed in the right middle lobe using a forceps and sent for cell count, bacterial culture, viral smears & culture, and fungal & AFB analysis and cytology. One sample was obtained. Transbronchial biopsies of a nodule were performed in the medial segment of the right middle lobe using forceps and sent for cell count, bacterial culture, viral smears & culture, and fungal & AFB analysis and cytology and histopathology examination. The procedure was guided by fluoroscopy. Transbronchial biopsy technique was selected because the sampling site was not visible endoscopically. Four biopsy passes were performed. Four biopsy samples were obtained. Impression: - Right middle lobe nodule - The airway examination of the right lung was normal. - Edema was present in the right middle lobe. - Bronchoalveolar lavage was performed. - An endobronchial biopsy was performed. - Transbronchial lung biopsies were performed. Recommendation: - Await test results. Procedure Code(s): --- Professional --- 42901, Bronchoscopy, rigid or flexible, including fluoroscopic guidance, when performed; with transbronchial lung biopsy(s), single lobe 97127, 59, Bronchoscopy, rigid or flexible, including fluoroscopic guidance, when performed; with bronchial or endobronchial biopsy(s), single or multiple sites 82794, Bronchoscopy, rigid or flexible, including fluoroscopic guidance, when performed; with bronchial alveolar lavage Diagnosis Code(s): --- Professional --- R91.1, Solitary pulmonary nodule R09.89, Other specified symptoms and signs involving the circulatory and respiratory systems CPT copyright 2021 [employer]. All rights reserved. The codes documented in this report are preliminary and upon inpatient coder review may be revised to meet current compliance requirements. MD Navneet Angela MD 02/08/2023 2:52:12 PM This report has been signed electronically. Number of Addenda: 0 Note Initiated On: 02/08/2023 1:13 PM
[2023-02-08 15:21] LABS: Cytology, Body Fluid / CSF SEE PATHOLOGY REPORT
== END 2023-02-08 16:30 | disposition home or self-care (01) ==
LOC: EN 12:49 → AC 12:49
PROVIDERS: PCP Family Medicine; Referring Provider Internal Medicine Pulmonary Disease; Visit Provider Internal Medicine Pulmonary Disease
PROC: 0BJ08ZZ Inspection of Tracheobronchial Tree, Via Natural or Artificial Opening Endoscopic (ICD-10-PCS; CPT 31622; principal; 2023-02-08 13:30)
DX: R91.1 Solitary pulmonary nodule (principal); J44.9 Chronic obstructive pulmonary disease, unspecified; J84.10 Pulmonary fibrosis, unspecified; R09.89 Other specified symptoms and signs involving the circulatory and respiratory systems; E66.9 Obesity, unspecified; I10 Essential (primary) hypertension; E78.5 Hyperlipidemia, unspecified; I25.10 Atherosclerotic heart disease of native coronary artery without angina pectoris; Z79.84 Long term (current) use of oral hypoglycemic drugs; Z79.899 Other long term (current) drug therapy; Z87.891 Personal history of nicotine dependence; Z68.31 Body mass index [BMI] 31.0-31.9, adult
CPT/HCPCS: 31628; 31625; 31624; J3490; 71045; 76000; 82962; 87015; 87116; 87206; 88108; 88161; 88305; 88312; 88313; 88341; 88342; J7120; J2405

== ENCOUNTER 2023-02-09 00:18 | Emergency (ER) | payer MEDICARE, SELFPAY ==
[2023-02-09] VITALS (7 sets, daily range): BP systolic 98–150; BP diastolic 51–76; PULSE 88–162; RESP 12–31; TEMP 36.2; O2SAT 91–94; BMI 34.9
--- NOTE | 2023-02-09 00:29 | RAD_ITS ---
INDICATION: dyspnea EXAMINATION/TECHNIQUE: X-RAY - XR Chest 1 View COMPARISON: February 08 2023. FINDINGS: LINES/DEVICES: None. LUNGS: Lungs symmetrically hyperexpanded with mild interstitial coarsening. No consolidation, florid edema or effusion. No pneumothorax. MEDIASTINUM AND CARDIOVASCULAR STRUCTURES: Cardiac silhouette not enlarged. BONES AND SOFT TISSUES: Unremarkable. RAD/Chest 1 View (Portable) IMPRESSION: Mild hyperexpansion and interstitial coarsening compatible with chronic obstructive pulmonary disease No radiographic evidence of consolidative airspace disease. Electronically Signed: Avinash Kern MD at 1:25 EDT ,
--- NOTE | 2023-02-09 00:30 | EKG12_ITS ---
Test Reason : CP Blood Pressure : / mmHG Vent. Rate : 161 BPM Atrial Rate : 000 BPM P-R Int : 000 ms QRS Dur : 080 ms QT Int : 292 ms P-R-T Axes : 000 092 -46 degrees QTc Int : 477 ms Critical Test Result: High HR Supraventricular tachycardia Rightward axis Marked ST abnormality, possible inferior subendocardial injury Abnormal ECG Confirmed by SUE ZULUAGA MD ([id number]), manager editorial PEG MARI ([id number]) on 02/10/2023 1:55:44 PM Referred By: RU Confirmed By:SUE ZULUAGA MD
--- NOTE | 2023-02-09 00:30 | EX.ED.DYSGE1 ---
HPI History of Present Illness Chief Complaint: Palpitations Detail of Chief Complaint: Palpitations and not feeling well Informant: patient and family Narrative Narrative: Patient presents with palpitations and not feeling well since around 11 PM. Patient states she just does not feel right and has some mild chest discomfort. She has history of prior heart attack. Patient states that she had a bronchoscopy done earlier today by Dr. Simmons and was diagnosed with stage IV cancer in both lungs. Patient tells me she has history of SVT and has had adenosine several other times. No prior history of A-fib or flutter. She is not currently anticoagulated. She denies recent travel or surgery. She denies fever or cough or recent illness. [facility] Medical History (Updated 02/09/23 @ 03:[address] Charlie Cabrera DO) Anxiety Atherosclerosis of coronary artery without angina pectoris Chronic cough COPD (chronic obstructive pulmonary disease) Diabetes mellitus type II, controlled Essential (primary) hypertension History of IBS History of non-ST elevation myocardial infarction (NSTEMI) (01/19/09) HLD (hyperlipidemia) Hoarseness Low iron Nicotine dependence Obesity (BMI 30-39.9) Post-menopausal Smoker SVT (supraventricular tachycardia) Vertigo Wears glasses Wears hearing aid Home Medications albuterol sulfate 90 mcg/actuation aerosol inhaler 2 puff inhalation Q4H PRN shortness of breath or wheezing 07/22/21 [History Last Taken Unknown] glimepiride 4 mg tablet 4 mg PO DAILY 07/22/21 [History Last Taken Unknown] vitamin E (dl, acetate) 180 mg (400 unit) capsule 400 unit PO DAILY 07/22/21 [History Last Taken Unknown] magnesium oxide 400 mg (241.3 mg magnesium) tablet 400 mg PO BID #180 tabs 09/06/21 [Rx Last Taken Unknown] nitroglycerin 0.4 mg sublingual tablet (Nitrostat) 0.4 mg sublingual Q5M PRN chest pain #25 tabs 09/06/21 [Rx Last Taken Unknown] folic acid 1 mg tablet 1 mg PO DAILY #90 tabs 03/07/22 [Rx Last Taken Unknown] clopidogrel 75 mg tablet 75 mg PO DAILY #90 tabs 09/09/22 [Rx Last Taken 01/30/23] atorvastatin 80 mg tablet 80 mg PO QHS #90 tabs 09/14/22 [Rx Last Taken Unknown] lisinopril 10 mg tablet 10 mg PO DAILY #90 tabs 09/14/22 [Rx Last Taken Unknown] metoprolol succinate 50 mg tablet,extended release 24 hr 50 mg PO DAILY #90 tabs 09/14/22 [Rx Last Taken Unknown] 5-hydroxytryptophan (5-HTP) 100 mg capsule 100 mg PO DAILY 12/27/22 [History Last Taken Unknown] calcium carb-vit [id number]-ihbq 333 mg-200 unit-133 mg-5 mg tablet 1 tab PO BID 12/27/22 [History Last Taken Unknown] isosorbide mononitrate 30 mg tablet,extended release 24 hr 30 mg PO BID #90 tabs 12/27/22 [Rx Last Taken Unknown] melatonin 300 mcg tablet 0.3 mg PO HS 12/27/22 [History Last Taken Unknown] multivitamin 1 tab PO DAILY 12/27/22 [History Last Taken Unknown] multivitamin with minerals (Hair,Skin and Nails tablet) 1 tab PO BID 12/27/22 [History Last Taken Unknown] tiotropium 2.5 mcg-olodaterol 2.5 mcg/actuation mist for inhalation (Stiolto Respimat) 2 inh inhalation DAILY 12/27/22 [History Last Taken Unknown] dicyclomine 20 mg tablet mg 02/08/23 [History Last Taken 02/08/23] Allergy/AdvReac Type Severity Reaction Status Date / Time bupropion [From Wellbutrin] Allergy Severe Rash Verified 02/09/23 00:26 cephalexin Allergy Hives Verified 02/09/23 00:26 Fish Containing Products Allergy Anaphylaxis Verified 02/09/23 00:26 Penicillins Allergy Anaphylaxis Verified 02/09/23 00:26 venom-honey bee Allergy Shortness Verified 02/09/23 00:26 [bee venom (honey bee)] of breath sulfadiazine AdvReac Severe Unknown Verified 02/09/23 00:26 Family History Father Diabetes Hypertension CAD (coronary artery disease) Hx CABG Myocardial infarction, Onset Age: 63 Cancer Lung Cancer Mother , from aneurysm at age 40 CVA (cerebral vascular accident) Daughter CAD (coronary artery disease) Surgical History History of appendectomy (~02/2021) History of bilateral carpal tunnel release History of cardiac catheterization History of colonoscopy (~2014) History of coronary artery stent placement (01/19/09) History of hysterectomy History of left heart catheterization (11/25/15) Social History Smoking Status: Current every day smoker tobacco type: cigarettes alcohol intake: never substance use type: does not use caffeine: Yes Type: coffee what type of physical activity do you participate in: none seatbelt use: always do you feel safe at home: Yes ROS ROS ED Review of Systems ROS Unobtainable: other Constitutional Constitutional ED: Reports lethargy; Denies chills, fever(s), sweats or weight loss Eyes Eyes: Denies blurry vision, change in vision or diplopia ENT ENT ED: Denies rhinorrhea or sore throat Cardiovascular Cardiovascular: Reports chest pain, palpitations and racing heartbeat; Denies orthopnea Respiratory/Chest Respiratory/Chest: Reports dyspnea; Denies cough, dyspnea on exertion, orthopnea or sputum Gastrointestinal Gastrointestinal: Denies abdominal pain, diarrhea, nausea or vomiting Genitourinary Genitourinary ED: Denies dysuria, hematuria or urinary frequency Musculoskeletal Musculoskeletal: Denies arthralgias, back pain, myalgias or neck pain Integumentary Denies abscess, Abrasions or rash Neurologic Neurologic: Denies headache(s) or weakness Psychiatric Psychiatric: Denies anxiety, depression or suicidal thoughts Endocrine Endocrinology: Denies polydipsia, polyphagia or polyuria Hematologic/Lymphatic Hematologic/Lymphatic: Denies easy bleeding, easy bruising or lymphadenopathy Allergic/Immunologic Allergic/Immunologic ED: Denies mouth swelling, tongue swelling or urticaria EXAM Physical Exam Const Vital Signs: 02/09/23 00:20 02/09/23 00:23 02/09/23 00:26 Temperature 97.2 F L Temperature Source Temporal Pulse Rate 160 H 162 H Respiratory Rate 31 H 26 H Respiratory Effort Short of Breath Blood Pressure 108/76 Blood Pressure Mean 86 Pulse Ox 92 93 Oxygen Delivery Method Room Air Room Air 02/09/23 00:39 02/09/23 01:18 02/09/23 02:18 Temperature Temperature Source Pulse Rate 107 H 101 H 92 Respiratory Rate 24 H 25 H 23 H Respiratory Effort Blood Pressure 117/73 112/51 L 150/63 H Blood Pressure Mean 87 71 92 Pulse Ox 92 94 93 Oxygen Delivery Method Room Air Room Air Room Air 02/09/23 02:44 02/09/23 03:38 Temperature Temperature Source Pulse Rate 88 94 Respiratory Rate 12 23 H Respiratory Effort Blood Pressure 98/61 Blood Pressure Mean Pulse Ox 91 Oxygen Delivery Method Positive well nourished and well developed General Appearance ED: well developed and NAD HEENT Reports TM's clear and moist mucous membranes normocephalic and atraumatic; Negative for trauma or tenderness Tympanic Membrane ED: Yes TM's clear Eyes PERRL and EOMs intact bilaterally General Eye ED: Negative for pale conjunctiva or scleral icterus Neck no lymphadenopathy, supple and no JVD General: Negative for tenderness Chest Wall inspection of chest normal and palpation of chest normal Chest: Negative for tenderness Resp normal respiratory effort and clear to auscultation bilaterally Effort and Inspection: Negative for respiratory distress or pain with movement Auscultation: Negative for rhonchi, wheezes or diminished lung sounds Cardio regular rhythm, S1 normal heart sound, S2 normal heart sound and no murmurs Rate: tachycardic Peripheral Pulses: pulses 2+ throughout GI normal to inspection, nondistended, normoactive bowel sounds, soft to palpation, non-tender, non-distended and no masses Back/Spine no CVA tenderness and no thoracic nor lumbar tenderness Extremity normal to inspection General Extremety ED: Negative for edema General Extremity: Negative for edema Neuro oriented x3, CN's II-XII intact bilaterally, no sensory deficits noted and gait normal Sensorium / Orientation: awake, alert, oriented to person, oriented to place and oriented to time Motor Exam: strength 5/5 throughout and strength abnormal Psych mental status grossly normal Skin no rashes or lesions noted and no wounds MDM MDM MDM Narrative Medical decision making narrative: Patient presents with tachycardia and on EKG shows what looks like a supraventricular tachycardia with ST depression inferiorly and laterally. IV line established on arrival. Patient placed on a security monitor. EKG obtained showed SVT with ST depression inferior laterally. Patient has prior history of SVT that responded to adenosine. Did give her 1 dose of adenosine 6 mg IV and she converted back to a sinus rhythm. Repeat EKG showed sinus rhythm with a rate of 108 bpm with significant improvement in the ST depression in the inferior lateral leads. CBC with differential obtained was essentially unremarkable showed a slightly elevated white count of 11.7 with hemoglobin of 15 and platelet count of 284. Chemistries unremarkable. BUN 15 and creatinine 1.12. Troponin was 25. Patient's D-dimer was normal when corrected for age. Blood glucose was elevated 496. I did give patient 10 units of insulin subcu. I did do a delta troponin and it too was normal at 37. Patient remained symptom-free. She did request a breathing treatment as she did not have her inhaler with her and felt like she needed a treatment. I did give her 1 albuterol aerosol x1 and she felt markedly improved. This point she will be discharged to home and advised to follow-up with her special distribution clerk within the next 3 to 5 days. Prior to discharge repeat blood sugar in the 480s. Patient states that she ate a lot of sweets before coming in. She has the ability to check her blood sugar at home. I offered to give her more insulin to try to bring her sugar down more before she leaves but she wants to go home and just monitor her blood sugars at home. She is not in DKA and no evidence of HHNK. Lab Data Attestation: I reviewed the patient's lab results. Labs: Laboratory Results - last 24 hr 02/09/23 02/09/23 02/09/23 00:30 02:01 02:35 WBC 11.7 H RBC 4.65 Hgb 15.1 H Hct 45.8 MCV 98.5 MCH 32.5 H MCHC 33.0 RDW Std Deviation 44.9 H RDW Coeff of Hang 12.4 Plt Count 284 MPV 10.9 Immature Gran % (Auto) 0.300 Neut % (Auto) 91.2 H Lymph % (Auto) 7.4 L Gaston % (Auto) 0.9 Eos % (Auto) 0.0 Baso % (Auto) 0.2 Absolute Neuts (auto) 10.6 H Absolute Lymphs (auto) 0.86 Nucleated RBC % 0 D-Dimer Quant (PE/DVT) 0.60 H* Sodium 134 L Potassium 4.0 Chloride 99 Carbon Dioxide 24.0 Anion Gap 11 BUN 15 Creatinine 1.12 H Estim Creat Clear Calc 39.22 Est GFR (MDRD) Af Amer 62 Est GFR (MDRD) Non-Af 51 L BUN/Creatinine Ratio 13.4 Glucose 496 H* Calcium 9.4 Troponin I High Sens 25 37 POC Glucose 475 H* 02/09/23 03:05 WBC RBC Hgb Hct MCV MCH MCHC RDW Std Deviation RDW Coeff of Hang Plt Count MPV Immature Gran % (Auto) Neut % (Auto) Lymph % (Auto) Gaston % (Auto) Eos % (Auto) Baso % (Auto) Absolute Neuts (auto) Absolute Lymphs (auto) Nucleated RBC % D-Dimer Quant (PE/DVT) Sodium Potassium Chloride Carbon Dioxide Anion Gap BUN Creatinine Estim Creat Clear Calc Est GFR (MDRD) Af Amer Est GFR (MDRD) Non-Af BUN/Creatinine Ratio Glucose Calcium Troponin I High Sens POC Glucose 482 H* Radiography Diagnostic Testing: Clinical Impression(s) from Imaging Studies Chest X-Ray 02/09/23 00:29 IMPRESSION: Mild hyperexpansion and interstitial coarsening compatible with chronic obstructive pulmonary disease No radiographic evidence of consolidative airspace disease. Electronically Signed: Avinash Kern MD at 1:25 EDT Reading Location ID and State: [facility] / [place] Tel , Service support , 1 view chest x-ray obtained interpreted by myself as no evidence of infiltrate or pneumothorax or acute disease process. Radiology felt there was mild hyperexpansion and interstitial coarsening compatible with COPD. EKG Initial EKG: Comments: Supraventricular tachycardia with ventricular rate of [address] depression inferior laterally. Prior EKG tracings: available for review Prior: Changed Discharge Plan Triage Chief Complaint: Palpitations ED Provider: Charlie Cabrera Dx/Rx/DC Orders Clinical Impression: SVT (supraventricular tachycardia), Hyperglycemia Instructions: ED Understanding Supraventricular Tachycardia (SVT), ED Palpitations Prescriptions: No Action vitamin E (dl, acetate) 180 mg (400 unit) capsule 400 unit PO DAILY glimepiride 4 mg tablet 4 mg PO DAILY albuterol sulfate 90 mcg/actuation HFA aerosol inhaler 2 puff inhalation Q4H PRN (Reason: shortness of breath or wheezing) Patient Comments: inhale two puffs FOUR TIMES DAILY NEEDED magnesium oxide 400 mg (241.3 mg magnesium) tablet 400 mg PO BID Qty: 180 3RF nitroglycerin [Nitrostat] 0.4 mg tablet, sublingual 0.4 mg SUBLINGUAL Q5M PRN (Reason: chest pain) Qty: 25 3RF Stiolto Respimat 2.5-2.5 mcg/actuation mist 2 inh inhalation DAILY Patient Comments: INHALE 2 (TWO) puffs daily every morning melatonin 300 mcg tablet 0.3 mg PO HS 5-hydroxytryptophan (5-HTP) 100 mg capsule 100 mg PO DAILY multivitamin Tablet 1 tab PO DAILY Hair,Skin and Nails Tablet 1 tab PO BID calcium carb-D3-mag [id number] bk-vcqk-bw-mg tablet 1 tab PO BID Rx Instructions: administer with a meal isosorbide mononitrate 30 mg tablet extended release 24 hr 30 mg PO BID Qty: 90 3RF dicyclomine 20 mg tablet Patient Comments: TAKE 1 TABLET BY MOUTH TWICE DAILY folic acid 1 mg tablet 1 mg PO DAILY Qty: 90 3RF clopidogrel 75 mg tablet 75 mg PO DAILY Qty: 90 3RF lisinopril 10 mg tablet 10 mg PO DAILY Qty: 90 3RF atorvastatin 80 mg tablet 80 mg PO QHS Qty: 90 3RF metoprolol succinate 50 mg tablet extended release 24 hr 50 mg PO DAILY Qty: 90 3RF Primary Care Provider: Eduardo Alvarez Referrals: Matthew Flores MD [Med Staff - Active Staff] - 3-5 Days Eduardo Alvarez MD [Primary Care Provider] - Disposition Disposition: Home, Self Care Discharge Date/Time: 02/09/23 03:39
[2023-02-09] MEDS: Adenosine 6 MG/2 ML Syringe IV (00:37)
[2023-02-09] MEDS: 0.9% Normal Saline 1,000 ML 150 ML IV (00:37)
[2023-02-09 00:42] LABS: Absolute Lymphocyte Count 0.86 X10^3/uL (0.83-4.51); Absolute Neutrophil Count 10.6 X10^3/uL (2.0-7.7); Basophil# 0.02 X10^3/uL; Basophil% 0.2 % (0-1); Hematocrit 45.8 % (37-47); Hemoglobin 15.1 g/dL (12.0-15.0); Lymphocyte # 0.86 X10^3/ul (0.83-4.51); Lymphocyte % 7.4 % (19-41); Mean Corpuscular Hgb 32.5 pg (27.0-32.0); Mean Corpuscular Volume 98.5 fL (81-99); Mean Platelet Vol. 10.9 fl (6.2-12.0); Monocyte# 0.11 X10^3/uL; Monocyte% 0.9 % (0-10); NRBC Flagged by Analyzer 0 % (0-5); Neutrophil # 10.64 X10^3/uL (2.7-7.7); Neutrophil % 91.2 % (47-70); Platelet Count 284 K/mm3 (150-450); RBC Distribution Width CV 12.4 % (11.6-14.6); RBC Distribution Width SD 44.9 fl (35.1-43.9); Red Blood Count 4.65 M/mm3 (4.2-5.4); White Blood Count 11.7 K/mm3 (4.4-11.0)
--- NOTE | 2023-02-09 00:50 | EKG12_ITS ---
Test Reason : REPEAT Blood Pressure : / mmHG Vent. Rate : 108 BPM Atrial Rate : 108 BPM P-R Int : 164 ms QRS Dur : 076 ms QT Int : 362 ms P-R-T Axes : 062 088 042 degrees QTc Int : 485 ms Sinus tachycardia Otherwise normal ECG Confirmed by MARGARETH SANCHEZ, SUE ([id number]), news assignment editor PEG MARI ([id number]) on 02/10/2023 1:56:02 PM Referred By: Confirmed By:SUE ZULUAGA MD
[2023-02-09 01:08] LABS: Anion Gap 11 (5-15); BUN 15 mg/dL (7-18); BUN/Creat Ratio 13.4 RATIO (10-20); Calcium,Total 9.4 mg/dL (8.5-10.1); Chloride 99 mmol/L (98-107); Creatinine, Serum 1.12 mg/dL (0.55-1.02); EST Glomerular Filtration Rate 51 mL/min (>60); Est Glom Filt Rate - Afr Amer 62 mL/min (>60); Estimated Creatinine Clearance 39.22 ml/min; Glucose 496 mg/dL (74-106); Sodium Level 134 mmol/L (136-145); Troponin-I HS 25 pg/mL (3.0-54.0)
[2023-02-09] MEDS: Insulin Lispro 100 UNIT/ML INSULN.PEN 10 UNIT SC (02:02)
[2023-02-09 02:21] LABS: Bedside Glucose 475 mg/dL (74-106)
[2023-02-09] MEDS: Albuterol 2.5 MG/3 ML VIAL.NEB. INHALATION (02:43)
[2023-02-09 02:56] LABS: Troponin-I HS 37 pg/mL (3.0-54.0)
[2023-02-09 03:25] LABS: Bedside Glucose 482 mg/dL (74-106)
== END 2023-02-09 03:39 | disposition home or self-care (01) ==
PROVIDERS: Emergency Provider Emergency Medicine; PCP Family Medicine; Visit Provider Emergency Medicine
DX: I47.1 Supraventricular tachycardia (principal); C34.91 Malignant neoplasm of unspecified part of right bronchus or lung; C34.92 Malignant neoplasm of unspecified part of left bronchus or lung; E11.65 Type 2 diabetes mellitus with hyperglycemia; I25.10 Atherosclerotic heart disease of native coronary artery without angina pectoris; I25.2 Old myocardial infarction; F17.210 Nicotine dependence, cigarettes, uncomplicated
CPT/HCPCS: 71045; 80048; 82962; 84484; 85025; 85379; 93005; 94640; 96374; 99285; J7030; A4216; J0153

== ENCOUNTER 2023-03-02 08:38 | Outpatient (CLI) | payer MEDICARE, SELFPAY ==
[2023-03-02] VITALS (11 sets, daily range): BP systolic 109–146; BP diastolic 56–76; PULSE 72–81; RESP 16–20; TEMP 36.3; O2SAT 92–98; BMI 31.8
--- NOTE | 2023-03-02 | ASPIGT_PTH ---
PATIENT: CARINE NEWTON LOC: CT U#:[id number] AGE/SX: 67/F ROOM: RE03/02/[address]: Dr. Navneet Simmons MD : 1955 BED: DIS: 03/02/2023 SPEC #: [id number] RECD: 03/02/23 10:50 STATUS: GENNY ARIEL #: [id number] GORGE: 03/02/23 00:[address]: Navneet Simmons V DEPT: SURGICAL PATHOLOGY RECD BY: Cecilio Benitez ENTERED: 03/02/23 10:50 SP TYPE: ASP RAD OTHR DR: Dr. Eduardo Alvarez MD Tissues: Lung, NOS Procedures: FNA Specimen Adequacy Special Stain Group II Surgery Specimen Level IV Imprint (control) HEADER OPERATION: CT-guided lung biopsy PRE-OP DIAGNOSIS: Right lung nodule TISSUE SUBMITTED: Right lung 18-gauge x4 MICROSCOPIC DIAGNOSIS Right lung mass, CT-guided core biopsy: Non-small cell carcinoma. See comment. SJ:javan 03/03/2023 COMMENT The specimen is evaluated at the time of biopsy by Dr. Mills. Immediate Evaluation = Malignant cells present derived from non-small cell carcinoma. Immunohistochemistry ([id number]) supports the above diagnosis. Immunohistochemical profile favor adenosquamous carcinoma, lung primary. Molecular studies on the tumor can be performed if clinically indicated. Please notify the laboratory if they are needed. Case has been reviewed in consultation with Dr. Hernandez who concurs with the above diagnosis. IDC:AM MICROSCOPIC DESCRIPTION Slides are reviewed. GROSS DESCRIPTION Received is one container labeled with the patient's name and not further designated. The specimen consists of multiple elongated fragments of jung tissue that in aggregate measure 1.2 x <0.1 x <0.1 cm. Two touch imprints are prepared at the time of core biopsy. The specimen is totally submitted in one cassette. / AM:javan 03/02/2023 TC:0 CPT: 28619, 65921 ADDENDUM ADDENDUM ADDENDUM ADDENDUM ADDENDUM ADDENDUM ADDENDUM ADDENDUM ADDENDUM ADDENDUM ADDENDUM ADDENDUM ADDENDUM ADDENDUM ADDENDUM ADDENDUM ADDENDUM ADDENDUM ADDENDUM ADDENDUM ADDENDUM ADDENDUM ADDENDUM ADDENDUM ADDENDUM ADDENDUM ADDENDUM ADDENDUM ADDENDUM ADDENDUM 03/22/2023 15:50 ADDENDUM 03/22/2023 15:50 ADDENDUM 03/22/2023 15:50 ADDENDUM 03/22/2023 15:50 ADDENDUM 03/22/2023 15:50 PD-L1 (KEYTRUDA) IMMUNOHISTOCHEMICAL ANALYSIS FROM [employer] RESULTS: Tumor proportion score: 10% / Positive [facility] NGS GENE FUSION PANEL FROM [facility] Review of the specimen revealed that there was insufficient tumor present. [facility] ADVANCED LUNG CANCER NGS REPORT FROM [facility] RESULT SUMMARY: Abnormal High level TMB is detected. Tier II: Variants of Potential Clinical Significance TP53 p.([id number]) KRAS p.([id number]) IMMUNOTHERAPY BIOMARKERS: Tumor Mutation [place]arat: High (13.3 Mutations / MB) Microsatellite Instability: MSI Negative (0%) PERTINENT NEGATIVE RESULTS: The following genes are NEGATIVE for clinically relevant mutations. Mutational hotspots and surrounding exonic regions were interrogated for DNA level point mutations and indels (fusions not assayed). AKT1, ALK, ATR, BRAF, CHEK1, DDR2, EGFR, ERBB2, ERBB3, FGFR1, HRAS, MAP2K1, MET, NRAS, NTRK1, PIK3CA, POLD1, POLE, ROS1, STK11, TERT Please see complete report in e-chart or EMR
--- NOTE | 2023-03-02 08:57 | CT_ITS ---
PROCEDURE: CT GUIDED CORE NEEDLE BIOPSY OF A right upper lobe LUNG LESION INDICATION: Female, 67 years old. Right upper lobe pulmonary nodule. PHYSICIAN: Dr. Jose Eduardo Carmona CONSENT: Written informed consent was obtained having explained the risks, benefits and alternatives in detail with the patient who accepted the risks and agreed to proceed. Laboratory review and clinical assessment was performed. CONSCIOUS SEDATION PROTOCOL: The Drugs used were: 2 mg Versed, IV., and 50 mcg Fentanyl, IV. The sedation time was: 22 minutes. Conscious sedation was started at 10:00 AM and terminated at 10:23 AM. The conscious sedation protocol was independently monitored. RADIATION DOSAGE (If Supplied By Facility): CTDIvol = ( 20 ) mGy, DLP = ( 407.44 ) mGycm Individualized dose optimization techniques were used for this CT. TECHNIQUE: The patient was placed in the supine position. A noncontrast CT was performed to localize the lesion in the anterior right upper lobe . The skin surface was prepped and draped in a sterile fashion. 1% lidocaine was used for local anesthesia. Using CT guidance, a 20-gauge coaxial biopsy device was advanced to the periphery of the lesion. A total of 4 core specimens were obtained. The specimens were placed in a formalin solution. A post procedure CT demonstrated no adverse sequelae or pneumothorax. The patient tolerated the procedure well without adverse event. A negative biopsy does not exclude malignancy. Further imaging or clinical followup based on patient condition and degree of clinical suspicion for malignancy. Suggest rebiopsy, if biopsy results do not match with clinical scenario. CT/Biopsy/Inj or Needle Placement IMPRESSION: 1. CT directed core needle biopsy of the right upper lobe pulmonary nodule using CT image guidance with image documentation as described. Pathology results are pending. 2. Conscious Sedation protocol utilized with independent monitoring. Electronically Signed: Chacorta Whitt MD at 11:15 EDT ,
[2023-03-02 09:01] LABS: Absolute Lymphocyte Count 1.91 X10^3/uL (0.83-4.51); Absolute Neutrophil Count 2.8 X10^3/uL (2.0-7.7); Basophil# 0.03 X10^3/uL; Basophil% 0.5 % (0-1); Eosinophil# 0.21 X10^3/uL; Eosinophils% 3.6 % (0-5); Hematocrit 48.1 % (37-47); Hemoglobin 15.3 g/dL (12.0-15.0); Lymphocyte # 1.91 X10^3/ul (0.83-4.51); Lymphocyte % 33.2 % (19-41); Mean Corp Hgb Conc 31.8 g/dL (32-36); Mean Corpuscular Hgb 32.1 pg (27.0-32.0); Mean Corpuscular Volume 101.1 fL (81-99); Mean Platelet Vol. 10.2 fl (6.2-12.0); Monocyte# 0.83 X10^3/uL; Monocyte% 14.4 % (0-10); NRBC Flagged by Analyzer 0 % (0-5); Neutrophil # 2.75 X10^3/uL (2.7-7.7); Neutrophil % 47.8 % (47-70); Platelet Count 336 K/mm3 (150-450); RBC Distribution Width CV 12.4 % (11.6-14.6); RBC Distribution Width SD 46.5 fl (35.1-43.9); Red Blood Count 4.76 M/mm3 (4.2-5.4); White Blood Count 5.8 K/mm3 (4.4-11.0)
[2023-03-02 09:24] LABS: International Normalized Ratio 0.9; Prothrombin Time (Protime)PT. 12.4 SECONDS (11.7-14.9)
[2023-03-02 09:25] LABS: Partial Thromboplast Time 25.8 Seconds (24.1-36.2)
[2023-03-02] MEDS: Midazolam 2 MG/2 ML Syringe IV (10:00)
[2023-03-02] MEDS: 0.9% Normal Saline (250mL Bag) 250 ML 15 ML IV (10:00)
--- NOTE | 2023-03-02 10:00 | IMM_PTH ---
PATIENT: CARINE NEWTON LOC: CT U#:[id number] AGE/SX: 67/F ROOM: RE03/02/[address]: Dr. Navneet Simmons MD : 1955 BED: DIS: 03/02/2023 SPEC #: [id number] RECD: 03/02/23 13:02 STATUS: GENNY REQ #: [id number] GORGE: 03/02/23 10:[address]: Navneet Simmons V DEPT: IMMUNOHISTOCHEMISTRY RECD BY: Genoveva Villegas ENTERED: 03/02/23 13:04 SP TYPE: IMMUNO OTHR DR: Dr. Eduardo Alvarez MD Tissues: Right upper lobe of lung, NOS Procedures: RCC (add) NAPSIN A (add) CK20 (add) CK5-6 (add) CK7 (add) CK8 (add) HEP PAR (add) SC (add) TTF1 (add) Pankeratin (add) P40 (add) ER (initial) PHYSICIAN & INSTITUTION [address] [address] SPECIMEN INFORMATION: Tissue Source: Right upper lobe of lung Clinical Info: Right lung nodule Specimen Number: [id number] CPT code: 74596, 17320 x11 METHODOLOGY: Deparaffinized sections of prefer/formalin-fixed tissue or PAP/DQ stained slides are incubated with monoclonal/polyclonal antibodies/oligonucleotide probes. Localization is made via biotin free immunoperoxidase method. Appropriate controls are performed and reacted as expected. Results on target cell population are indicated in the following table: RESULTS: ANTIBODY / CLONE RESULT ER (6F11) negative SC (1E2) negative AE1-3 (AE1/AE3/PCK26) positive CK7 (OV-TL12/30) positive CK8 (10eyfxT09) positive CK20 (KS20.8) negative TTF-1 (8G7G3/1) positive, focal Napsin A (Rabbit Polyclonal) positive, focal HepPar (OCh1E5) positive, focal RCC (PN-15) negative CK5-6 (D5 & 1684) positive, focal P40 (BC28) positive, focal These tests were developed and their performance characteristics determined by [facility]. They may not have been cleared or approved by the U.S. Food and Drug Administration. The FDA has determined that such clearance or approval is not necessary. The above immunohistochemical/dualISH markers are ordered and reviewed by the Pathologist. INTERPRETATION: Right upper lobe of lung, CT-guided core biopsy: Non-small cell carcinoma. See comment. SJ:rg Comment: IHC profile favors favor adenosquamous carcinoma, lung primary. Case has been reviewed in consultation with Dr. Hernandez who concurs with the above diagnosis. IDC:[email or web address] 03/03/2023
[2023-03-02] MEDS: fentaNYL 100 MCG/2 ML Ampul IV (10:01)
[2023-03-02] MEDS: Lidocaine 2% (20 ml mdv) 20 ML Vial INFILT (10:12)
--- NOTE | 2023-03-02 10:30 | RAD_ITS ---
STUDY: X-RAY CHEST REASON FOR EXAM: Female, 67 years old. Post lung biopsy -- Immediately post lung biopsy TECHNIQUE: AP inspiration and expiration views. COMPARISON: Comparison is made with prior study dated February 09, 2023. FINDINGS: EKG electrodes are seen. The patient is status post right lung biopsy. No evidence of pneumothorax. RAD/Chest Insp/Exp 2 View IMPRESSION: No evidence of pneumothorax on the immediate post right lung biopsy radiographs. Electronically Signed: Chacorta Whitt MD at 11:22 EDT ,
--- NOTE | 2023-03-02 12:24 | RAD_ITS ---
STUDY: X-RAY CHEST REASON FOR EXAM: Female, 67 years old. 2 hours post lung biopsy -- 2 hours post lung biopsy TECHNIQUE: AP inspiration and expiration views. COMPARISON: Comparison is made with prior study done earlier in the day. FINDINGS: There is no evidence of pneumothorax on the two-hour delayed post right lung biopsy. RAD/Chest Insp/Exp 2 View IMPRESSION: No evidence of pneumothorax on the 2 hour post right lung biopsy radiographs. Electronically Signed: Chacorta Whitt MD at 11:44 EDT ,
== END 2023-03-02 23:59 | disposition home or self-care (01) ==
LOC: CT 08:39
PROVIDERS: Radiology Diagnostic Radiology; PCP Family Medicine; Referring Provider Internal Medicine Pulmonary Disease; Visit Provider Internal Medicine Pulmonary Disease
DX: Z01.818 Encounter for other preprocedural examination (principal); C34.11 Malignant neoplasm of upper lobe, right bronchus or lung; R91.1 Solitary pulmonary nodule
CPT/HCPCS: 32408; 36415; 71046; 77012; 85025; 85610; 85730; 88172; 88305; 88313; 88341; 88342; 99156; J7050; A4216; C2613

== ENCOUNTER 2023-04-17 17:23 | Emergency (ER) | payer MEDICARE, SELFPAY ==
[2023-04-17 17:25] VITALS: BP 173/75; PULSE 71; RESP 18; TEMP 36.5; O2SAT 94; BMI 32.1
--- NOTE | 2023-04-17 18:21 | EKG12_ITS ---
Test Reason : Blood Pressure : / mmHG Vent. Rate : 068 BPM Atrial Rate : 068 BPM P-R Int : 154 ms QRS Dur : 070 ms QT Int : 412 ms P-R-T Axes : 060 074 043 degrees QTc Int : 438 ms Normal sinus rhythm with sinus arrhythmia Normal ECG Confirmed by MARGARETH SANCHEZ, SUE ([id number]), editorial intern GREGG COLINDRES ([id number]) on 04/26/2023 10:07:27 AM Referred By: Confirmed By:SUE ZULUAGA MD
--- NOTE | 2023-04-17 18:23 | EX.ED.DYSGE1 ---
HPI History of Present Illness Chief Complaint: Hyperglycemia Narrative Narrative: 67-year-old female past medical history of lung carcinoma with metastasis to lymph nodes presents at the direction of her oncologist, Dr. Otoole for elevated blood sugar. She is supposed to start chemotherapy next week, but she had laboratory work drawn today and she had elevated blood sugar in the 400s, above 450. She states that she does not usually check her blood sugar but has been borderline diabetic for years, and started glipizide twice a day for her elevated sugars. She is also being treated for thrush and a yeast infection and she states that traditional medications are not working. She endorses urinary frequency. She was told that she needs to get her blood sugars in order prior to her chemotherapy. [facility] Medical History Anxiety Atherosclerosis of coronary artery without angina pectoris Chronic cough COPD (chronic obstructive pulmonary disease) Diabetes mellitus type II, controlled Essential (primary) hypertension History of IBS History of non-ST elevation myocardial infarction (NSTEMI) (01/19/09) HLD (hyperlipidemia) Hoarseness Low iron Metastasis to lung Nicotine dependence Obesity (BMI 30-39.9) Post-menopausal Primary cancer of right lung Regional lymph node metastasis present Smoker SVT (supraventricular tachycardia) Vertigo Wears glasses Wears hearing aid Home Medications albuterol sulfate 90 mcg/actuation aerosol inhaler 2 puff inhalation Q4H PRN shortness of breath or wheezing 07/22/21 [History Last Taken Unknown] vitamin E (dl, acetate) 180 mg (400 unit) capsule 400 unit PO DAILY 07/22/21 [History Last Taken Unknown] nitroglycerin 0.4 mg sublingual tablet (Nitrostat) 0.4 mg sublingual Q5M PRN chest pain #25 tabs 09/06/21 [Rx Last Taken Unknown] folic acid 1 mg tablet 1 mg PO DAILY #90 tabs 03/07/22 [Rx Last Taken Unknown] clopidogrel 75 mg tablet 75 mg PO DAILY #90 tabs 09/09/22 [Rx Last Taken 01/30/23] atorvastatin 80 mg tablet 80 mg PO QHS #90 tabs 09/14/22 [Rx Last Taken Unknown] lisinopril 10 mg tablet 10 mg PO DAILY #90 tabs 09/14/22 [Rx Last Taken Unknown] 5-hydroxytryptophan (5-HTP) 100 mg capsule 100 mg PO DAILY 12/27/22 [History Last Taken Unknown] melatonin 300 mcg tablet 0.3 mg PO HS 12/27/22 [History Last Taken Unknown] multivitamin 1 tab PO DAILY 12/27/22 [History Last Taken Unknown] multivitamin with minerals (Hair,Skin and Nails tablet) 1 tab PO BID 12/27/22 [History Last Taken Unknown] tiotropium 2.5 mcg-olodaterol 2.5 mcg/actuation mist for inhalation (Stiolto Respimat) 2 inh inhalation DAILY 12/27/22 [History Last Taken Unknown] dicyclomine 20 mg tablet 20 mg PO BID 02/21/23 [History Last Taken Unknown] calcium carb-vit [id number] 333 mg-200 unit-133 mg-5 mg tablet 1 tab PO DAILY 02/27/23 [History Last Taken Unknown] glimepiride 4 mg tablet 4 mg PO BID 02/27/23 [History Last Taken Unknown] isosorbide mononitrate 30 mg tablet,extended release 24 hr 30 mg PO DAILY 02/27/23 [History Last Taken Unknown] magnesium oxide 500 mg tablet 500 mg PO DAILY 02/27/23 [History Last Taken Unknown] metoprolol succinate 50 mg tablet,extended release 24 hr 50 mg PO DAILY 02/27/23 [History Last Taken Unknown] bupropion HCl 100 mg tablet,12 hr sustained-release (Wellbutrin SR) 100 mg PO BID 04/17/23 [History Last Taken Unknown] nystatin 100,000 unit/mL oral suspension 1 ml buccal DAILY 04/17/23 [History Last Taken Unknown] Allergy/AdvReac Type Severity Reaction Status Date / Time bupropion [From Wellbutrin] Allergy Severe Rash Verified 04/17/23 17:25 cephalexin Allergy Hives Verified 04/17/23 17:25 Fish Containing Products Allergy Anaphylaxis Verified 04/17/23 17:25 Penicillins Allergy Anaphylaxis Verified 04/17/23 17:25 venom-honey bee Allergy Shortness Verified 04/17/23 17:25 [bee venom (honey bee)] of breath sulfadiazine AdvReac Severe Unknown Verified 04/17/23 17:25 metformin AdvReac Diarrhea Verified 04/17/23 17:25 Family History Father Diabetes Hypertension CAD (coronary artery disease) Hx CABG Myocardial infarction, Onset Age: 63 Cancer, Onset Age: 77 Mother , from aneurysm at age 40 CVA (cerebral vascular accident) Daughter CAD (coronary artery disease) Brother Cancer Surgical History History of appendectomy (~02/2021) History of bilateral carpal tunnel release History of cardiac catheterization History of colonoscopy (~2014) History of coronary artery stent placement (01/19/09) History of hysterectomy History of left heart catheterization (11/25/15) History of lung biopsy History of toe surgery Social History Smoking Status: Light Smoker (<10/day) alcohol intake: never substance use type: does not use caffeine: Yes Type: coffee what type of physical activity do you participate in: none seatbelt use: always do you feel safe at home: Yes ROS ROS ED ROS Narrative Constitutional: No fever, no chills. HEENT: No sore throat. No neck pain. No loss of vision. No rhinorrhea. Cardiovascular: No chest pain. No palpitations. No pedal edema. Respiratory: No cough, no shortness of breath. Abdominal: No abdominal pain. No nausea. No vomiting. Genitourinary: No dysuria. No hematuria. Positive urinary frequency. Musculoskeletal: No myalgias. No arthralgias. Neurologic: No headaches. No dizziness. No lightheadedness. Skin: No rash. No change in color. Psychiatric: No depression. No anxiety. EXAM Physical Exam Narrative Exam Narrative: Afebrile. Vital signs noted. HEENT: Normocephalic. Atraumatic. PERRL, EOMI. Neck soft and supple. No point tenderness or step off. Cardiovascular: Regular rate and rhythm. No murmurs, rubs, or gallops appreciated. Respiratory: No tachypnea. Lungs clear to auscultation bilaterally. Gastrointestinal: Abdomen soft, nontender, with normoactive bowel sounds. No rebound or guarding. Neurological: Awake. Alert. Nonfocal, nonlateralizing. Skin: No rash. Normal color. No pallor. Musculoskeletal: No pedal edema. Full range of motion extremities. Const Vital Signs: 04/17/23 17:25 04/17/23 18:21 04/17/23 19:24 Temperature 97.7 F L Temperature Source Temporal Pulse Rate 71 71 Respiratory Rate 18 16 Respiratory Effort Normal Non-Labored Respiratory Pattern Normal Blood Pressure 173/75 H 174/82 H Blood Pressure Mean 107 112 Pulse Ox 94 98 Oxygen Delivery Method Room Air Room Air MDM MDM MDM Narrative Medical decision making narrative: Given her ongoing yeast infection and thrush, concern is for diabetes. She is reportedly on medication in the form of glimepiride 4 mg twice a day. I reviewed her laboratory work from today and she did have elevated blood sugar of 459 with a normal anion gap. Hence, I have low concern for diabetic ketoacidosis, but comprehensive work-up will be pursued to check her other electrolytes again, see where her blood sugar is, and I will also obtain an acetone. She will be bolused normal saline 1 L intravenously. Based on her laboratory work repeated, will see if she requires admission for further blood sugar control versus outpatient therapy as she seems to be failing her glimepiride, and she does not tolerate metformin. She may require diabetic teaching so she may need to be observed. However, in review of her labs, she has a normal white count 9.9, hemoglobin slightly hemoconcentrated at 15.2, hematocrit 46.7, platelet count normal at 280. Sodium is normal at 139 with potassium 3.8, anion gap is normal at 6 with an elevated glucose of 288. BUN normal at 15 with creatinine 0.68. Acetone is negative. Urinalysis is negative for infection. I do not feel that antibiotics are indicated. She was bolused normal saline. As she is not in diabetic ketoacidosis and I do feel that she has longstanding history of diabetes as she states her hemoglobin A1c was 11 and she brought it down to 7.1, I discussed the patient with Dr. Vizcaino for Dr. Alvarez who agrees with close outpatient follow-up. She has already maxed out on her Amaryl. I feel she can be discharged safely home with follow-up and she does not require observation at this time. She will follow-up with her primary care provider within the week, probably the next few days, for additional medication for better control of her blood sugars. She was instructed on diabetic diet as well. Disposition is discharged home in stable condition. History & Record Review Discussion w/independent historian: Patient and Family Additional record(s) reviewed:: Prior ED visit and Prior labs Lab Data Attestation: I reviewed the patient's lab results. Labs: Laboratory Results - last 24 hr 04/17/23 04/17/23 18:57 19:05 WBC 9.9 RBC 4.80 Hgb 15.2 H Hct 46.7 MCV 97.3 MCH 31.7 MCHC 32.5 RDW Std Deviation 46.5 H RDW Coeff of Hang 13.0 Plt Count 280 MPV 10.4 Immature Gran % (Auto) 0.800 Neut % (Auto) 73.9 H Lymph % (Auto) 16.6 L [place] % (Auto) 6.3 Eos % (Auto) 1.7 Baso % (Auto) 0.7 Absolute Neuts (auto) 7.3 Absolute Lymphs (auto) 1.65 Nucleated RBC % 0 Sodium 139 Potassium 3.8 Chloride 102 Carbon Dioxide 31.0 Anion Gap 6 BUN 15 Creatinine 0.68 Estim Creat Clear Calc 43.92 Est GFR (MDRD) Af Amer 110 Est GFR (MDRD) Non-Af 91 BUN/Creatinine Ratio 22.1 H Glucose 288 H Calcium 8.9 Total Bilirubin 0.50 AST 32 ALT 52 Alkaline Phosphatase 125 H Total Protein 7.3 Albumin 3.4 Globulin 3.9 Albumin/Globulin Ratio 0.9 Urine Color Yellow Urine Clarity Clear Urine pH 6.5 Ur Specific Superior 1.020 Urine Protein 100 H Urine Glucose (UA) 1000 H Urine Ketones 5 H Urine Occult Blood 25 H Urine Nitrite Negative Urine Bilirubin Negative Urine Urobilinogen Normal Ur Leukocyte Esterase 25 H Acetone Level NEGATIVE POC Glucose 284 H Discharge Plan Triage Chief Complaint: Hyperglycemia ED Provider: Chaitanya Wade Dx/Rx/DC Orders Clinical Impression: Hyperglycemia, Lung cancer Instructions: ED Diabetic Hyperglycemia Prescriptions: No Action vitamin E (dl, acetate) 180 mg (400 unit) capsule 400 unit PO DAILY albuterol sulfate 90 mcg/actuation HFA aerosol inhaler 2 puff inhalation Q4H PRN (Reason: shortness of breath or wheezing) Patient Comments: inhale two puffs FOUR TIMES DAILY NEEDED nitroglycerin [Nitrostat] 0.4 mg tablet, sublingual 0.4 mg SUBLINGUAL Q5M PRN (Reason: chest pain) Qty: 25 3RF Stiolto Respimat 2.5-2.5 mcg/actuation mist 2 inh inhalation DAILY Patient Comments: INHALE 2 (TWO) puffs daily every morning melatonin 300 mcg tablet 0.3 mg PO HS 5-hydroxytryptophan (5-HTP) 100 mg capsule 100 mg PO DAILY multivitamin Tablet 1 tab PO DAILY Hair,Skin and Nails Tablet 1 tab PO BID magnesium oxide 500 mg tablet 500 mg PO DAILY glimepiride 4 mg tablet 4 mg PO BID Patient Comments: Take 1 (one) Tablet by mouth two times daily metoprolol succinate 50 mg tablet extended release 24 hr 50 mg PO DAILY isosorbide mononitrate 30 mg tablet extended release 24 hr 30 mg PO DAILY calcium carb-D3-mag [id number] [phone] [id number]-[id number]-mg tablet 1 tab PO DAILY Rx Instructions: administer with a meal bupropion HCl [Wellbutrin SR] 100 mg tablet sustained-release 12 hr 100 mg PO BID nystatin 100,000 unit/mL suspension 1 ml buccal DAILY Rx Instructions: administer 1/2 of dose in each side of the mouth dicyclomine 20 mg tablet 20 mg PO BID Patient Comments: TAKE 1 TABLET BY MOUTH TWICE DAILY folic acid 1 mg tablet 1 mg PO DAILY Qty: 90 3RF clopidogrel 75 mg tablet 75 mg PO DAILY Qty: 90 3RF lisinopril 10 mg tablet 10 mg PO DAILY Qty: 90 3RF atorvastatin 80 mg tablet 80 mg PO QHS Qty: 90 3RF Primary Care Provider: Eduardo Alvarez Referrals: Eduardo Alvarez MD [Primary Care Provider] - 1-2 Days if not improving Activity Restrictions/Additional Instructions: Continue your previous medications. Your primary care provider's office will contact you in the next 1 to 2 days for an appointment for follow-up for additional medications. You need to follow-up by the end of the week. Disposition Disposition: Home, Self Care
[2023-04-17] MEDS: 0.9% Normal Saline (1000mL) 1,000 ML 999 ML IV (19:07)
[2023-04-17 19:17] LABS: Bacteria 0 SEEN /hpf (None Seen); Mucous, Urine 0 SEEN /hpf (<or=2+); Red Blood Cells-Urine 0 SEEN /hpf (0-5); Squamous Epithelial Cells - UA 0 SEEN /hpf (5-10); White Blood Cells 0 SEEN /hpf (0-5)
[2023-04-17 19:18] LABS: Absolute Lymphocyte Count 1.65 X10^3/uL (0.83-4.51); Absolute Neutrophil Count 7.3 X10^3/uL (2.0-7.7); Basophil# 0.07 X10^3/uL; Basophil% 0.7 % (0-1); Eosinophil# 0.17 X10^3/uL; Eosinophils% 1.7 % (0-5); Hematocrit 46.7 % (37-47); Hemoglobin 15.2 g/dL (12.0-15.0); Lymphocyte # 1.65 X10^3/ul (0.83-4.51); Lymphocyte % 16.6 % (19-41); Mean Corp Hgb Conc 32.5 g/dL (32-36); Mean Corpuscular Hgb 31.7 pg (27.0-32.0); Mean Corpuscular Volume 97.3 fL (81-99); Mean Platelet Vol. 10.4 fl (6.2-12.0); Monocyte# 0.63 X10^3/uL; Monocyte% 6.3 % (0-10); NRBC Flagged by Analyzer 0 % (0-5); Neutrophil # 7.33 X10^3/uL (2.7-7.7); Neutrophil % 73.9 % (47-70); Platelet Count 280 K/mm3 (150-450); RBC Distribution Width SD 46.5 fl (35.1-43.9); White Blood Count 9.9 K/mm3 (4.4-11.0)
[2023-04-17 19:19] LABS: Color, Urine Yellow (Yellow); Glucose, Dipstick 1000 mg/dl (Normal); Ketone-Dipstick 5 mg/dl (Negative); Leukocyte Esterase-Dipstick 25 /ul (Negative); Nitrite-Dipstick Negative (Negative); Occult Blood-Urine 25 /ul (Negative); Protein-Dipstick 100 mg/dl (Negative); Urine Bilirubin Dipstick Negative (Negative); Urine Clarity Clear (Clear); Urine Urobilinogen Normal (Normal); Urine pH 6.5 (5.0 - 8.0)
[2023-04-17 19:24] VITALS: BP 174/82; PULSE 71; RESP 16; O2SAT 98
[2023-04-17 19:27] LABS: Bedside Glucose 284 mg/dL (74-106)
[2023-04-17 19:35] LABS: ALB/GLOB Ratio 0.9 RATIO (0.9-2.4); AST(SGOT) 32 U/L (15-37); Alanine Aminotransfer ALT/SGPT 52 U/L (13-56); Albumin, Serum 3.4 g/dL (3.2-5.0); Alkaline Phosphatase 125 U/L (45-117); Anion Gap 6 (5-15); BUN 15 mg/dL (7-18); BUN/Creat Ratio 22.1 RATIO (10-20); Calcium,Total 8.9 mg/dL (8.5-10.1); Chloride 102 mmol/L (98-107); Creatinine, Serum 0.68 mg/dL (0.55-1.02); EST Glomerular Filtration Rate 91 mL/min (>60); Est Glom Filt Rate - Afr Amer 110 mL/min (>60); Estimated Creatinine Clearance 43.92 ml/min; Globulin 3.9 g/dL (2.2-4.2); Glucose 288 mg/dL (74-106); Potassium 3.8 mmol/L (3.5-5.1); Protein, Total 7.3 g/dL (6.4-8.2); Sodium Level 139 mmol/L (136-145)
[2023-04-17 20:12] VITALS: BP 166/80; PULSE 72; O2SAT 100
== END 2023-04-17 20:13 | disposition home or self-care (01) ==
PROVIDERS: Emergency Provider Emergency Medicine; PCP Family Medicine; Visit Provider Emergency Medicine
DX: E11.65 Type 2 diabetes mellitus with hyperglycemia (principal); C34.90 Malignant neoplasm of unspecified part of unspecified bronchus or lung; J44.9 Chronic obstructive pulmonary disease, unspecified; F17.200 Nicotine dependence, unspecified, uncomplicated; I25.10 Atherosclerotic heart disease of native coronary artery without angina pectoris; I25.2 Old myocardial infarction; Z79.84 Long term (current) use of oral hypoglycemic drugs; Z95.5 Presence of coronary angioplasty implant and graft
CPT/HCPCS: 80053; 81001; 82009; 82962; 85025; 93005; 99284; J7030; A4216

== ENCOUNTER → 2023-04-20 | Outpatient (CLI) | payer MEDICARE, SELFPAY ==
--- NOTE | 2023-04-20 13:59 | VDLE_ITS ---
Reason For Study: swelling RIGHT LEFT GSV is normal. GSV is normal. CFV is compressible, spontaneous, phasic, CFV is compressible, spontaneous, phasic, competent and demonstrates normal competent, and demonstrates normal augmentation. augmentation. FV is compressible, spontaneous, phasic, FV is compressible, spontaneous, phasic, competent and demonstrates normal competent and demonstrates normal augmentation. augmentation. POP V is compressible, spontaneous, phasic, POP V is compressible, spontaneous, phasic, competent and demonstrates normal competent and demonstrates normal augmentation. augmentation. T/P Trunk is compressible. T/P Trunk is compressible. PTV is compressible. PTV is compressible. RT PerV is compressible. LT PerV is compressible. Procedure This is a venous duplex using B-mode, color flow and spectral Doppler. Exam performed in department. The exam was diagnostic. A preliminary report was called and/or faxed to Barbara Chang. VL/Venous Duplex US - Jason Extrem Interpretation Summary No evidence for acute deep venous thrombosis bilateral lower extremities with p atent and compressible bilateral great saphenous veins. Ordering Physician: Barbara Chang Performed By: Asad Belle RVT
== END | disposition home or self-care (01) ==
LOC: CVS 13:59
PROVIDERS: PCP Family Medicine; Referring Provider Nurse Practitioner Family; Visit Provider Nurse Practitioner Family
DX: R60.0 Localized edema (principal)
CPT/HCPCS: 93970

== ENCOUNTER → 2023-04-26 | Outpatient (CLI) | payer MEDICARE, SELFPAY ==
--- NOTE | 2023-04-26 15:58 | CT_ITS ---
STUDY: CT BRAIN WITH AND WITHOUT CONTRAST REASON FOR EXAM: Female, 67 years old. STAGING NSCLC RADIATION DOSAGE (If Supplied By Facility): CTDIvol = ( 44.99 ) mGy, DLP = ( 1547.23 ) mGycm TECHNIQUE: Transaxial CT imaging of the brain was performed pre and post contrast administration. The examination was performed with intravenous administration of 50 CC ISOVUE 370. Individualized dose optimization techniques were used for this CT. COMPARISON: None. FINDINGS: Normal soft tissue structures. Normal calvarium. Calcific plaquing of the cavernous carotids Normal size ventricles and extra-axial spaces for the patient''s age. Mild nonspecific periventricular white matter disease most likely chronic small vessel ischemic changes. Normal basal ganglia and thalami. Normal brainstem. Normal cerebellum. There is no intracranial hemorrhage. There are no findings of an acute ischemic infarction. Right maxillary and ethmoid sinus disease. CT/Brain/Head W/WO Contrast IMPRESSION: Mild periventricular white matter ischemic changes. No mass or acute bleed. No enhancing lesions to suggest presence of metastatic disease Electronically Signed: Albert Horne MD at 17:22 EST ,
== END | disposition home or self-care (01) ==
LOC: CT 15:54
PROVIDERS: PCP Family Medicine; Referring Provider Internal Medicine Hematology & Oncology; Visit Provider Internal Medicine Hematology & Oncology
DX: C78.00 Secondary malignant neoplasm of unspecified lung (principal); C34.91 Malignant neoplasm of unspecified part of right bronchus or lung; C77.9 Secondary and unspecified malignant neoplasm of lymph node, unspecified
CPT/HCPCS: 70470; Q9967

== ENCOUNTER 2023-05-01 08:01 | Day surgery (SDC) | payer MEDICARE, SELFPAY ==
--- NOTE | 2023-05-01 08:41 | PCM.HP.BLA ---
History and Physical Date of Admission: 05/01/23 Intake Vital Signs 04/17/2311:29 04/17/2317:25 04/20/2309:05 Height 5 ft 3 in 5 ft 3 in 5 ft 3 in Weight: 178 lb 6 oz BMI 31.6 BP 148/82 H Blood Pressure Location Rt brachial Position Sitting Respiration 19 H Pulse 72 Pulse Source Monitor Temp 96.4 F L Temp Source Temporal Pulse Oximetry (%) 96 Oxygen Delivery Method room air Intake Visit Reasons: PORT PLACEMENT Chief Complaint: port placement consult Insurance Billing Specialist Required: No Accompanied by: Daughter Is patient in pain?: No Allergies bupropion [From Wellbutrin] Allergy (Severe, Verified 04/20/23 10:44) Rashcephalexin Allergy (Verified 04/20/23 10:44) HivesFish Containing Products Allergy (Verified 04/20/23 10:44) AnaphylaxisPenicillins Allergy (Verified 04/20/23 10:44) Anaphylaxisvenom-honey bee [bee venom (honey bee)] Allergy (Verified 04/20/23 10:44) Shortness of breathsulfadiazine Adverse Reaction (Severe, Verified 04/20/23 10:44) Unknownmetformin Adverse Reaction (Verified 04/20/23 10:44) Diarrhea Medications albuterol sulfate 90 mcg/actuation aerosol inhaler 2 puff inhalation Q4H PRN shortness of breath or wheezing 07/22/21 [History Confirmed 04/20/23] vitamin E (dl, acetate) 180 mg (400 unit) capsule 400 unit PO DAILY 07/22/21 [History Confirmed 04/20/23] nitroglycerin 0.4 mg sublingual tablet (Nitrostat) 0.4 mg sublingual Q5M PRN chest pain #25 tabs 09/06/21 [Rx Confirmed 04/20/23] clopidogrel 75 mg tablet 75 mg PO DAILY #90 tabs 09/09/22 [Rx Confirmed 04/20/23] atorvastatin 80 mg tablet 80 mg PO QHS #90 tabs 09/14/22 [Rx Confirmed 04/20/23] lisinopril 10 mg tablet 10 mg PO DAILY #90 tabs 09/14/22 [Rx Confirmed 04/20/23] 5-hydroxytryptophan (5-HTP) 100 mg capsule 100 mg PO DAILY 12/27/22 [History Confirmed 04/20/23] melatonin 300 mcg tablet 0.3 mg PO HS 12/27/22 [History Confirmed 04/20/23] multivitamin 1 tab PO DAILY 12/27/22 [History Confirmed 04/20/23] multivitamin with minerals (Hair,Skin and Nails tablet) 1 tab PO BID 12/27/22 [History Confirmed 04/20/23] tiotropium 2.5 mcg-olodaterol 2.5 mcg/actuation mist for inhalation (Stiolto Respimat) 2 inh inhalation DAILY 12/27/22 [History Confirmed 04/20/23] dicyclomine 20 mg tablet 20 mg PO BID 02/21/23 [History Confirmed 04/20/23] calcium carb-vit B6-bqmcbprok-kums 333 mg-200 unit-133 mg-5 mg tablet 1 tab PO DAILY 02/27/23 [History Confirmed 04/20/23] glimepiride 4 mg tablet 4 mg PO BID 02/27/23 [History Confirmed 04/20/23] isosorbide mononitrate 30 mg tablet,extended release 24 hr 30 mg PO DAILY 02/27/23 [History Confirmed 04/20/23] magnesium oxide 500 mg tablet 500 mg PO DAILY 02/27/23 [History Confirmed 04/20/23] metoprolol succinate 50 mg tablet,extended release 24 hr 50 mg PO DAILY 02/27/23 [History Confirmed 04/20/23] bupropion HCl 100 mg tablet,12 hr sustained-release (Wellbutrin SR) 100 mg PO BID 04/17/23 [History Confirmed 04/20/23] nystatin 100,000 unit/mL oral suspension 1 ml buccal DAILY 04/17/23 [History Confirmed 04/20/23] dexamethasone 4 mg tablet 4 mg PO .COMPLEX #30 tabs 04/20/23 [Rx Confirmed 04/20/23] folic acid 1 mg tablet 1 mg PO DAILY #90 tabs 04/20/23 [Rx Confirmed 04/20/23] lidocaine-prilocaine 2.5 %-2.5 % topical cream 1 applic topical ONCE PRN port access 30 days #30 grams 04/20/23 [Rx Confirmed 04/20/23] ondansetron 8 mg disintegrating tablet 8 mg PO Q8H PRN nausea and vomiting #30 tabs 04/20/23 [Rx Confirmed 04/20/23] prochlorperazine maleate 10 mg tablet 10 mg PO Q6H PRN nausea and vomiting #30 tabs 04/20/23 [Rx Confirmed 04/20/23] PFSH Medical History (Updated 04/20/23 @ 14:[address] Jorge Alberto Disla MD) Anxiety Atherosclerosis of coronary artery without angina pectoris Bilateral lower extremity edema Chronic cough COPD (chronic obstructive pulmonary disease) Diabetes mellitus type II, controlled Encounter for education Encounter for vitamin B12 injection while on pemetrexed chemotherapy Essential (primary) hypertension History of IBS History of non-ST elevation myocardial infarction (NSTEMI) (01/19/09) HLD (hyperlipidemia) Hoarseness Low iron Metastasis to lung Nicotine dependence Obesity (BMI 30-39.9) Post-menopausal Primary cancer of right lung Regional lymph node metastasis present Smoker SVT (supraventricular tachycardia) Vertigo Wears glasses Wears hearing aid Surgical History History of appendectomy (~02/2021) History of bilateral carpal tunnel release History of cardiac catheterization History of colonoscopy (~2014) History of coronary artery stent placement (01/19/09) History of hysterectomy History of left heart catheterization (11/25/15) History of lung biopsy History of toe surgery Family History Father Diabetes Hypertension CAD (coronary artery disease) Hx CABG Myocardial infarction, Onset Age: 63 Cancer, Onset Age: 75Mother , from aneurysm at age 40 CVA (cerebral vascular accident)Daughter CAD (coronary artery disease)Brother Cancer Social History Smoking Status: Light Smoker (<10/day) alcohol intake: never substance use type: does not use caffeine: Yes Type: coffee what type of physical activity do you participate in: none seatbelt use: always do you feel safe at home: Yes HPI HPI HPI: Patient is a 67-year-old female here with lung cancer and need for vascular access port for chemotherapy. ROS General General: Yes weight change and fatigue HEENT HEENT: Yes difficulty swallowing and swollen glands Endo Endocrine: Yes diabetes mellitus Skin Skin: Yes rash and changing moles Musc Musculoskeletal: Yes back problems Cardio Cardiovascular: Yes pacemaker, heart disease, high blood pressure, heart attack and heart stent Psych Psychiatric: Yes anxiety Resp Respiratory: Yes shortness of breath, Yes cough and Yes COPD Gastro Gastrointestinal: Yes hemorrhoids Jamie Hematologic: Yes blood thinners and Yes bleeding Exam Const General: cooperative Orientation: alert and oriented x3 HENMT Head: normal to inspection Neck Neck: normal visual inspection and full ROM Chest Chest palpation & inspection: normal inspection of the chest Resp Effort & Inspection: normal respiratory effort Auscultation: clear to auscultation bilaterally Cardio Rate: regular rate Rhythm: regular rhythm GI Inspection: non-distended Palpation: soft and nontender Skin General: no rashes or lesions noted Neuro General: patient alert and patient oriented x3 Extrem General: full ROM Psych Appearance: grossly normal Mental Status: mental status grossly normal Assessment and Plan Assessment and Plan (1) Lung cancer: Status: Acute (2) Encounter for insertion of venous access port: Status: Acute Plan I discussed right chest port placement with the patient in detail. I discussed the risks including but not limited to bleeding, infection, injury to other organs or pneumothorax. Patient understands all the risks and is willing to proceed. She will have to hold her Plavix for 5 days prior to surgery. Jorge Alberto Disla MD Pager: [facility] [address] [place] [address], [address] [place] [address] Office: I have examined the patient and the H&P has been reviewed. There are no clinical changes since date of exam.
[2023-05-01 08:50] VITALS: BP 137/89; PULSE 80; RESP 16; TEMP 36.1; O2SAT 97; BMI 30.8
[2023-05-01] MEDS: Lactated Ringers 1,000 ML 15 ML IV (08:57)
[2023-05-01] MEDS: Clindamycin 900 MG/50 ML BAG 75 MG IV (09:18)
[2023-05-01] MEDS: Bupivacaine Mpf 0.5% 30 ML VIAL (09:31)
[2023-05-01] MEDS: Lidocaine 1%/Epi 1:200 (30ml) 30 ML AMPUL (09:31)
--- NOTE | 2023-05-01 09:40 | RAD_ITS ---
STUDY: X-RAY CHEST REASON FOR EXAM: Female, 67 years old. Line placement in PACU. TECHNIQUE: Single frontal view of the chest. COMPARISON: February 09, 2023 and March 02, 2023. FINDINGS: New right internal jugular catheter with tip projected over the mid-SVC. Hyperinflation with prominent central pulmonary arteries. Lobulated right hilar adenopathy which is new since the prior study. No abnormality of the visualized soft tissue structures of the upper abdomen. RAD/CXR for Line Placement IMPRESSION: Internal jugular catheter with interval development of right hilar adenopathy as described. No acute abnormality. Electronically Signed: Jose Mccoy MD at 10:10 EST ,
[2023-05-01 09:41] VITALS: BP 137/89; BP 139/88; PULSE 82; RESP 18; TEMP 36.1; O2SAT 98
[2023-05-01 09:45] VITALS: BP 120/66; BP 137/89; PULSE 81; RESP 16; O2SAT 97
[2023-05-01 09:50] VITALS: BP 114/58; BP 137/89; PULSE 79; RESP 18; O2SAT 96
--- NOTE | 2023-05-01 09:54 | PCM.OPRPT ---
Report of Operation Date of Procedure: 05/01/23 Pre-Operative Diagnosis: Need for vascular access port Post-Operative Diagnosis: Same Surgery/Procedure Performed:: Ultrasound and fluoroscopy guided right chest port placement utilizing right IJ Type of Anesthesia: Local MAC Specimen's removed: None Estimated Blood Loss (mL): 5 Description of Procedure: After obtaining informed consent patient was brought back to the operating room MAC anesthesia was induced and the right chest and neck were prepped in normal sterile fashion. Ultrasound was used to evaluate both IJs and the right IJ was selected. Next, using a needle, the right IJ was accessed and a guidewire was passed on into the superior vena cava under fluoroscopy guidance. A small incision was made over the puncture site and the dilator introducer was placed over the guidewire. Next this was capped and the pocket was made for the port. 1% lidocaine with epinephrine was injected in the proposed port site. An incision was made with scalpel. Electrocautery was used to make a pocket under the skin and subcutaneous tissue. Hemostasis was obtained. Next, the catheter was tunneled up to the neck incision site and placed through the introducer. The peel-away introducer was removed and the position of the catheter was confirmed on fluoroscopy. Next, the catheter was trimmed and attached to the port with the locking device. Interrupted 2-0 Vicryl sutures were used to anchor the port to the chest wall and then the port was placed inside the pocket. The pocket was then flushed with saline and the port irrigated with saline. There was good blood return and the port flushed easily. Next, heparin was injected into the port. The skin was closed with subcutaneous interrupted 3-0 Vicryl sutures. A single 3-0 Vicryl sutures placed under the skin at the neck incision site. Steri-Strips were placed as well as op sites. Patient tolerated procedure well, was taken to PACU in stable condition. Chest x-ray will be obtained. Grafts/Implants Used: 8 [place] PowerPort Admit VTE Documentation VTE Mechan Device Prophylaxis: SCD's
--- NOTE | 2023-05-01 09:56 | DCINST_ITS ---
Discharge Instructions Procedure Port-A-Cath Diet Discharge Diet: Light diet - advance as tolerated (Pain medication may cause nausea. You should typically eat light foods as you take your pain medication.) Activity Discharge Activity: Return to Normal Activity and May Shower (with your bandage in place in 1-2 days after surgery. DO NOT SHOWER WHEN YOUR PORT IS ACCESSED.) Dressing / Incision Call your doctor if your incision/area has: Continuous Slow Oozing, Sudden Increased Bleeding, Increased Pain/ Swelling, Increased Redness and Foul Smelling Discharge Call your doctor if you observe: Fever of 101 or Higher Remove Dressing in: 2 days Cleanse incision/area with: Soap & Water Follow Up Care Please Follow Up With: Jorge Alberto Disla MD When: as needed [phone] Test Results: Test results from this visit will be discussed in further detail at your follow- up appointment, if applicable. Discharge Plan Admission Attending Provider: Jorge Alberto Disla Primary Care Provider: Eduardo Alvarez Instructions Additional Instructions / Restrictions: Alternate ibuprofen and Tylenol for pain. Resume blood thinners on Monday Discharge Orders/Prescriptions Prescriptions: No Action vitamin E (dl, acetate) 180 mg (400 unit) capsule 400 unit PO DAILY albuterol sulfate 90 mcg/actuation HFA aerosol inhaler 2 puff inhalation Q4H PRN (Reason: shortness of breath or wheezing) Patient Comments: inhale two puffs FOUR TIMES DAILY NEEDED nitroglycerin [Nitrostat] 0.4 mg tablet, sublingual 0.4 mg SUBLINGUAL Q5M PRN (Reason: chest pain) Qty: 25 3RF Stiolto Respimat 2.5-2.5 mcg/actuation mist 2 inh inhalation DAILY Patient Comments: INHALE 2 (TWO) puffs daily every morning melatonin 300 mcg tablet 0.3 mg PO HS 5-hydroxytryptophan (5-HTP) 100 mg capsule 100 mg PO DAILY multivitamin Tablet 1 tab PO DAILY Hair,Skin and Nails Tablet 1 tab PO DAILY magnesium oxide 500 mg tablet 500 mg PO DAILY glimepiride 4 mg tablet 4 mg PO BID Patient Comments: Take 1 (one) Tablet by mouth two times daily metoprolol succinate 50 mg tablet extended release 24 hr 50 mg PO DAILY isosorbide mononitrate 30 mg tablet extended release 24 hr 30 mg PO DAILY calcium carb-D3-mag [id number] vh-[id number]-lj-mg tablet 1 tab PO DAILY Rx Instructions: administer with a meal bupropion HCl [Wellbutrin SR] 100 mg tablet sustained-release 12 hr 100 mg PO DAILY nystatin 100,000 unit/mL suspension 1 ml buccal 4X/DAY Rx Instructions: administer 1/2 of dose in each side of the mouth lidocaine-prilocaine 2.5-2.5 % cream 1 applic topical ONCE PRN (Reason: port access) 30 Days Qty: 30 2RF ondansetron 8 mg tablet,disintegrating 8 mg PO Q8H PRN (Reason: nausea and vomiting) Qty: 30 2RF prochlorperazine maleate 10 mg tablet 10 mg PO Q6H PRN (Reason: nausea and vomiting) Qty: 30 2RF dexamethasone 4 mg tablet 4 mg PO .COMPLEX Qty: 30 0RF Rx Instructions: 4 mg orally ONLY the night before chemotherapy and the morning of chemotherapy; insulin glargine [Lantus Solostar U-100 Insulin] 100 unit/mL (3 mL) insulin pen 20 unit subcut QPM folic acid 1 mg tablet 0.8 mcg PO DAILY insulin lispro 100 unit/mL insulin pen SUBCUT Patient Comments: Inject 5 units subcutaneously three times daily. clopidogrel 75 mg tablet 75 mg PO DAILY Qty: 90 3RF lisinopril 10 mg tablet 10 mg PO DAILY Qty: 90 3RF atorvastatin 80 mg tablet 80 mg PO QHS Qty: 90 3RF Referrals / Follow Up: Eduardo Alvarez MD [Primary Care Provider] - Disposition Disposition (needs filled in before D/C Order can be placed): Home, Self Care
[2023-05-01 09:57] VITALS: BP 114/78; BP 137/89; PULSE 72; RESP 18; TEMP 36.6; O2SAT 95
[2023-05-01 10:30] VITALS: BP 137/89
[2023-05-01 10:54] LABS: Bedside Glucose 222 mg/dL (74-106)
== END 2023-05-01 10:35 | disposition home or self-care (01) ==
LOC: SDC 08:01 → AC 08:02
PROVIDERS: PCP Family Medicine; Referring Provider Surgery; Visit Provider Surgery
PROC: (CPT 36561; principal; 2023-05-01 09:15)
DX: Z45.2 Encounter for adjustment and management of vascular access device (principal); C34.90 Malignant neoplasm of unspecified part of unspecified bronchus or lung; J44.9 Chronic obstructive pulmonary disease, unspecified; E11.9 Type 2 diabetes mellitus without complications; I25.10 Atherosclerotic heart disease of native coronary artery without angina pectoris; I10 Essential (primary) hypertension; E78.5 Hyperlipidemia, unspecified; F17.200 Nicotine dependence, unspecified, uncomplicated; I25.2 Old myocardial infarction; F41.9 Anxiety disorder, unspecified; Z79.899 Other long term (current) drug therapy; Z79.84 Long term (current) use of oral hypoglycemic drugs; Z95.5 Presence of coronary angioplasty implant and graft; Z95.0 Presence of cardiac pacemaker
CPT/HCPCS: 36561; 00532; 71045; 77001; 82962; J7120; C1788

== ENCOUNTER → 2023-07-06 | Outpatient (CLI) | payer MEDICARE, SELFPAY ==
--- OUTSIDE RECORDS SUMMARY | 2023-07-06 07:51 | XMS RPT_ITS | CCD ---
Author Name Unknown Address [address] [place] [address] Organization [facility] Results Test Name Value Interpretation Reference Range Facil ity Summary Purpose Family History No Family History Records Found Advance Directives No Advanced Directives Records Found Additional Source Comments INFORMATION SOURCE (unrecogn ized section and content) FOR RECORDS PERTAINING TO PATIENTS WHO ARE OR HAVE BEEN ENROLLED IN A CHEMICAL DEPENDENCY/SUBSTANCEABUSE PROGRAM, SOME INFORMATION MAY BE OMITTED. This clinical summary was aggregated from multiple sources. Caution should be exercised in using it in the provision of clinical care. This summary normalizes information from multiple sources, and as a consequence, information in this document may materially change the coding, format and clinical context of patient data. In addition, data may be omitted in some cases. CLINICAL DECISIONS SHOULD BE BASED ON THE PRIMARY CLINICAL RECORDS. [employer] provides no warranty or guarantee of the accuracy or completeness of information in this document.
--- NOTE | 2023-07-06 07:56 | CT_ITS ---
EXAM: CT CHEST AND ABDOMEN WITH INTRAVENOUS CONTRAST CLINICAL INDICATION: NSCLC ON RX F/U RESPONSE IV CONT ONLY TECHNIQUE: Helically acquired images were obtained of the chest and abdomen with intravenous contrast. This CT exam was performed using one or more of the following dose reduction techniques: automated exposure control, adjustment of the mA and/or kV according to patient size, and/or use of iterative reconstruction technique. CONTRAST: IV 100mL [id number] COMPARISON: No relevant prior studies available. FINDINGS: CHEST: LUNGS AND PLEURAL SPACES: No significant change in the 16mm left upper lobe pulmonary nodule abutting the medial pleura. Residual 2.2 cm right middle lobe pulmonary nodule with spiculated borders not significantly changed in size. Superimposed linear densities within the right middle lobe may represent posttreatment changes. No pneumothorax. HEART: Normal. Heart size is normal. No pericardial effusion. MEDIASTINUM: Extensive mediastinal and right hilar lymphadenopathy which has worsened since prior study. Esophagus is unremarkable. No hiatal hernia. THYROID: Normal. No thyroid nodules or calcification. ABDOMEN: LIVER: Normal. Homogeneous. No focal mass. PANCREAS: Normal. No focal cystic or solid mass. SPLEEN: Normal. Normal size without focal cystic or solid mass. ADRENALS: Normal. No nodules. KIDNEYS AND URETERS: Normal. Normal renal size and position. No hydronephrosis. STOMACH AND BOWEL: Normal. No stomach or bowel distention. No focal inflammatory change. INTRAPERITONEAL SPACE: Normal. No ascites or other fluid collection. No free air. CHEST and ABDOMEN: BONES/JOINTS: No suspicious lytic or blastic abnormality. SOFT TISSUES: Normal. No discrete abdominal wall hernia. VASCULATURE: Normal. Aorta is non-dilated. No aortic dissection. No obvious central pulmonary embolism although this study was not performed with the pulmonary embolism protocol. LYMPH NODES: See above. CT/CT Chest AND Abd W/ Contrast IMPRESSION: 1. Enlarging mediastinal and hilar lymphadenopathy consistent with worsening metastatic disease. 2. Persistent left upper and right middle lobe lung masses. 3. No intra-abdominal metastasis. Electronically Signed: Addi Costello MD at 10:25 EST Reading Location ID and State: [address] [place] [address] Tel , Service support ,
[2023-07-06] MEDS: 0.9% Saline Lock 10 ML Syringe IV (08:15)
--- NOTE | 2023-08-09 09:57 | CASEMGMT ---
Late Entry Acid Supervisor Sw met with patient at her scheduled outpatient oncology appointment. Sw discussed February topic of the month: anger. Sw discussed anger as part of the natural emotional process that patient may have experienced during her oncology/ cancer journey. Patient was positive and upbeat. Sw provided literature for patient to review. Patient engaged in conversation and was appreciative of support and information provided. Patient denies any needs or concerns at this time. Salomón Murillo, VP COMPLIANCE, DIALYSIS SOCIAL WORKER
== END | disposition home or self-care (01) ==
LOC: CT 07:49
PROVIDERS: PCP Family Medicine; Referring Provider Internal Medicine Hematology & Oncology; Visit Provider Internal Medicine Hematology & Oncology
DX: C34.91 Malignant neoplasm of unspecified part of right bronchus or lung (principal)
CPT/HCPCS: 71260; 74160; Q9967; A4216

== ENCOUNTER → 2023-09-07 | Outpatient (CLI) | payer MEDICARE, SELFPAY ==
--- NOTE | 2023-09-07 08:13 | CT_ITS ---
STUDY: CT CHEST T ABDOMEN WITH CONTRAST REASON FOR EXAM: Female, 67 years old. F/U NSCLC IV CONTRAST ONLY RADIATION DOSAGE (If Supplied By Facility): CTDIvol = ( 13.33 ) mGy, DLP = ( 1162.32 ) mGycm TECHNIQUE: Transaxial imaging was performed following intravenous administration of [id number] 100ML. Multiplanar coronal and sagittal images were reformatted. Individualized dose optimization techniques were used for this CT. COMPARISON: Comparison is made with prior study dated July 06, 2023. FINDINGS: CHEST A right-sided camila catheter seen with the tip in the superior vena cava. Persistent 2.1 cm x 0.8 cm suspected nodule in the anterior aspect of the right upper lobe. This is essentially unchanged. Spiculated borders are once again seen. Stable mild increased markings in the peripheral lateral aspect of the right upper lobe suggestive of possible scarring. Interval decrease in size of the nodular density in the anterior medial aspect of the left upper lobe measuring 9.5 mm at this time. There is no demonstrated pleural abnormality. Normal heart and pericardium. There are multiple small lymph nodes within the mediastinum, which are normal in size and morphology most compatible with reactive lymph hyperplasia. There has been improvement as compared to prior study. Interval decrease in size of the right hilar lymph node. Normal unenhanced pulmonary arteries. Normal aorta arch and descending thoracic aorta. There are multi-level degenerative changes of the thoracic spine. ABDOMEN Normal liver. Normal gallbladder and extrahepatic biliary system. Normal spleen. Normal pancreas. Normal bilateral adrenal glands. Normal right kidney. Normal left kidney. Normal visualized stomach. Normal small intestine. Normal colon. The appendix is visualized and appears normal. There is diffuse atherosclerotic calcification of the abdominal aorta, without a demonstrated aneurysm. Normal inferior vena cava. Normal retroperitoneum. Normal abdominal wall. There are degenerative changes of the visualized lumbar spine. CT/CT Chest AND Abd W/ Contrast IMPRESSION: Interval decrease in size of the right hilar and mediastinal adenopathy. Decreased size of the nodular density in the anterior medial aspect of the left upper lobe. Essentially no change in the right upper lobe pulmonary nodule. Scarring. Electronically Signed: Chacorta Whitt MD at 14:41 EDT ,
[2023-09-07] MEDS: 0.9% Saline Lock 10 ML Syringe IV (08:45)
== END | disposition home or self-care (01) ==
LOC: CT 08:12
PROVIDERS: PCP Family Medicine; Referring Provider Internal Medicine Hematology & Oncology; Visit Provider Internal Medicine Hematology & Oncology
DX: C34.91 Malignant neoplasm of unspecified part of right bronchus or lung (principal)
CPT/HCPCS: 71260; 74160; Q9967; A4216

== ENCOUNTER 2023-10-29 19:53 | Emergency (ER) | payer MEDICARE, SELFPAY ==
[2023-10-29 19:55] VITALS: BP 128/63; PULSE 98; RESP 15; TEMP 36.2; O2SAT 97
[2023-10-29 20:05] VITALS: BMI 30.3
[2023-10-29 21:02] LABS: Absolute Lymphocyte Count 1.05 X10^3/uL (0.83-4.51); Absolute Neutrophil Count 4.9 X10^3/uL (2.0-7.7); Basophil# 0.02 X10^3/uL; Basophil% 0.3 % (0-1); Eosinophil# 0.04 X10^3/uL; Eosinophils% 0.7 % (0-5); Hematocrit 39.2 % (37-47); Hemoglobin 12.7 g/dL (12.0-15.0); Lymphocyte # 1.05 X10^3/ul (0.83-4.51); Lymphocyte % 17.3 % (19-41); Mean Corp Hgb Conc 32.4 g/dL (32-36); Mean Corpuscular Hgb 35.2 pg (27.0-32.0); Mean Corpuscular Volume 108.6 fL (81-99); Mean Platelet Vol. 9.3 fl (6.2-12.0); Monocyte% 1.6 % (0-10); NRBC Flagged by Analyzer 0 % (0-5); Neutrophil # 4.85 X10^3/uL (2.7-7.7); Neutrophil % 79.9 % (47-70); Platelet Count 354 K/mm3 (150-450); RBC Distribution Width CV 14.6 % (11.6-14.6); Red Blood Count 3.61 M/mm3 (4.2-5.4); White Blood Count 6.1 K/mm3 (4.4-11.0)
[2023-10-29] MEDS: Mag Hydrox/Al Hydrox/Simeth 30 ML UDC PO (21:02)
[2023-10-29] MEDS: Ondansetron 4 MG/2 ML Vial IV (21:03)
[2023-10-29 21:25] LABS: ALB/GLOB Ratio 0.8 RATIO (0.9-2.4); AST(SGOT) 21 U/L (15-37); Alanine Aminotransfer ALT/SGPT 28 U/L (13-56); Albumin, Serum 3.6 g/dL (3.2-5.0); Alkaline Phosphatase 110 U/L (45-117); Anion Gap 9 (5-15); BUN 16 mg/dL (7-18); BUN/Creat Ratio 21.9 RATIO (10-20); Calcium,Total 9.5 mg/dL (8.5-10.1); Chloride 98 mmol/L (98-107); Creatinine, Serum 0.73 mg/dL (0.55-1.02); EST Glomerular Filtration Rate 84 mL/min (>60); Est Glom Filt Rate - Afr Amer 102 mL/min (>60); Estimated Creatinine Clearance 65.46 ml/min; Globulin 4.3 g/dL (2.2-4.2); Glucose 299 mg/dL (74-106); Lipase 16 U/L (13-75); Potassium 3.7 mmol/L (3.5-5.1); Protein, Total 7.9 g/dL (6.4-8.2); Sodium Level 134 mmol/L (136-145)
--- NOTE | 2023-10-29 21:33 | ED.VIS.GI ---
HPI HPI - GI History of Present Illness Chief Complaint: Abd Pain Narrative Narrative: 67-year-old female with history of stage IV lung cancer on chemotherapy with Dr. Mclaughlin. She is presenting with epigastric pain which has been going on for about 6 weeks. Patient had a CT of the chest abdomen pelvis about 4 weeks ago which showed interval improvement in her cancer. Patient states that immediately after she eats she has trouble holding her food down and vomits. She states that it feels like a sharp pain in her epigastrium. Patient denies fevers or chills. She denies constipation or diarrhea. Patient has been receiving chemotherapy. Patient has history of GERD as well and was put on Prilosec about 5 days ago. [facility] Medical History Postprandial vomiting Epigastric pain Acid reflux Hyperglycemia Encounter for chemotherapy management Vaginitis Thrush, oral Rash Insulin dependent diabetes mellitus Cancer Bilateral lower extremity edema Encounter for vitamin B12 injection while on pemetrexed chemotherapy Encounter for education Metastasis to lung Regional lymph node metastasis present Primary cancer of right lung Wears hearing aid Wears glasses Post-menopausal Anxiety Low iron Vertigo History of IBS Smoker Hoarseness Chronic cough History of non-ST elevation myocardial infarction (NSTEMI) (01/19/09) Essential (primary) hypertension Nicotine dependence Atherosclerosis of coronary artery without angina pectoris Diabetes mellitus type II, controlled Obesity (BMI 30-39.9) COPD (chronic obstructive pulmonary disease) HLD (hyperlipidemia) SVT (supraventricular tachycardia) Home Medications ?Medication ?Instructions ?Recorded ?Last Taken ?Type albuterol sulfate 90 mcg/actuation 2 puff inhalation Q4H PRN 07/22/21 Unknown History aerosol inhaler shortness of breath or wheezing vitamin E (dl, acetate) 180 mg 400 unit PO DAILY 07/22/21 Unknown History (400 unit) capsule nitroglycerin 0.4 mg sublingual 0.4 mg sublingual Q5M PRN chest 09/06/21 Unknown Rx tablet (Nitrostat) pain #25 tabs 5-hydroxytryptophan (5-HTP) 100 mg 100 mg PO DAILY 12/27/22 Unknown History capsule melatonin 300 mcg tablet 0.3 mg PO HS 12/27/22 Unknown History multivitamin 1 tab PO DAILY 12/27/22 Unknown History multivitamin with minerals 1 tab PO DAILY 12/27/22 Unknown History (Hair,Skin and Nails tablet) calcium carb-vit [id number]-[id number]-nzyd 1 tab PO DAILY 02/27/23 Unknown History 333 mg-200 unit-133 mg-5 mg tablet glimepiride 4 mg tablet 4 mg PO BID 02/27/23 Unknown History magnesium oxide 500 mg PO DAILY 02/27/23 Unknown History dexamethasone 4 mg tablet 4 mg PO .COMPLEX #30 tabs 04/20/23 Unknown Rx lidocaine-prilocaine 2.5 %-2.5 % 1 applic topical ONCE PRN port 04/20/23 Unknown Rx topical cream access 30 days #30 grams ondansetron 8 mg disintegrating 8 mg PO Q8H PRN nausea and 04/20/23 Unknown Rx tablet vomiting #30 tabs prochlorperazine maleate 10 mg 10 mg PO Q6H PRN nausea and 04/20/23 Unknown Rx tablet vomiting #30 tabs insulin lispro 100 unit/mL subcut 05/01/23 04/30/23 History subcutaneous pen folic acid 1 mg tablet 1 mg PO DAILY #30 tabs 08/03/23 Unknown Rx isosorbide mononitrate 30 mg 30 mg PO DAILY #90 tabs 08/08/23 Unknown Rx tablet,extended release 24 hr coenzyme Q10 100 mg tablet 200 mg PO DAILY 08/18/23 Unknown History insulin glargine 100 unit/mL (3 30 unit subcut QPM 08/18/23 Unknown History mL) subcutaneous pen (Lantus Solostar U-100 Insulin) nystatin 100,000 unit/mL oral 1 ml buccal 4X/DAY PRN 08/18/23 Unknown History suspension atorvastatin 80 mg tablet 80 mg PO QHS #90 tabs 09/10/23 Unknown Rx clopidogrel 75 mg tablet 75 mg PO DAILY #90 tabs 09/10/23 Unknown Rx lisinopril 10 mg tablet 10 mg PO DAILY #90 tabs 09/10/23 Unknown Rx metoprolol succinate 50 mg 50 mg PO DAILY #90 tabs 10/04/23 Unknown Rx tablet,extended release 24 hr Disability Placard #1 ea 10/26/23 Unknown Rx omeprazole magnesium 20 mg 20 mg PO DAILY #30 tabs 10/26/23 Unknown Rx tablet,delayed release (Prilosec OTC) sucralfate 1 gram tablet (Carafate) 1 g PO BID PRN epigastric pain #3 10/29/23 Unknown Rx tabs sucralfate 100 mg/mL oral 1 g (10 mL) PO BID PRN epigastric 10/29/23 Unknown Rx suspension (Carafate) pain #473 mL Allergy/AdvReac Type Severity Reaction Status Date / Time bupropion (From Wellbutrin) Allergy Severe Rash Verified 10/29/23 19:58 cephalexin Allergy Hives Verified 10/29/23 19:58 Fish Containing Products Allergy Anaphylaxis Verified 10/29/23 19:58 Penicillins Allergy Anaphylaxis Verified 10/29/23 19:58 venom-honey bee (bee venom Allergy Shortness Verified 10/29/23 19:58 (honey bee)) of breath sulfadiazine AdvReac Severe Unknown Verified 10/29/23 19:58 metformin AdvReac Diarrhea Verified 10/29/23 19:58 Family History Father Diabetes Hypertension CAD (coronary artery disease) Hx CABG Myocardial infarction, Onset Age: 63 Cancer, Onset Age: 77 Mother , from aneurysm at age 40 CVA (cerebral vascular accident) Daughter CAD (coronary artery disease) Brother Cancer Surgical History History of bronchoscopy History of lung biopsy History of toe surgery History of cardiac catheterization History of appendectomy (~02/2021) History of colonoscopy (~2014) History of coronary artery stent placement (01/19/09) History of bilateral carpal tunnel release History of hysterectomy History of left heart catheterization (11/25/15) Social History Smoking Status: Light Smoker (<10/day) alcohol intake: never substance use type: does not use caffeine: Yes Type: coffee what type of physical activity do you participate in: none seatbelt use: always do you feel safe at home: Yes EXAM Physical Exam Const Vital Signs: 10/29/23 19:55 Temperature 97.1 F L Temperature Source Temporal Pulse Rate 98 Respiratory Rate 15 Blood Pressure 128/63 H Blood Pressure Mean 84 Pulse Ox 97 Oxygen Delivery Method Room Air Positive well nourished General Appearance ED: NAD; Negative for pallor HEENT Reports moist mucous membranes normocephalic and atraumatic Eyes PERRL and EOMs intact bilaterally Resp normal respiratory effort and clear to auscultation bilaterally Cardio regular rate and regular rhythm GI Palpation: tender epigastric Neuro CN's II-XII intact bilaterally Sensorium / Orientation: alert Motor Exam: strength 5/5 throughout Psych mental status grossly normal and thought process normal Skin General Skin Exam: Negative for jaundice or pallor MDM MDM MDM Narrative Medical decision making narrative: Patient presenting with epigastric pain and history of stage IV lung cancer. Differential includes gastritis, GERD, pancreatitis, metastases. Patient had an CT of the chest abdomen pelvis a month ago which showed improvement intervally. We did obtain lab work and her CBC shows a white blood cell count of 6.1. Hemoglobin 12.7. Platelets are normal at 354. Renal function and electrolytes unremarkable. Total bilirubin slightly elevated 1.1 however AST and ALT are normal. Alkaline phosphatase 110. Lipase is negative. Patient states she does not want narcotic pain medication so we did try a GI cocktail to see if this does help her pain. On reevaluation she states the GI cocktail did help. Given this I recommended that she stay on her PPI. I will provide her with Carafate. I recommended she follow-up with her primary care physician and her oncologist however she may need upper endoscopy given the ongoing pain. Return precautions were discussed. Impression: 1. Gastritis Lab Data Attestation: I reviewed the patient's lab results. Labs: Laboratory Results - last 24 hr 10/29/23 20:50 WBC 6.1 RBC 3.61 L Hgb 12.7 Hct 39.2 MCV 108.6 H MCH 35.2 H MCHC 32.4 RDW Std Deviation 59.0 H RDW Coeff of Hang 14.6 Plt Count 354 MPV 9.3 Immature Gran % (Auto) 0.200 Neut % (Auto) 79.9 H Lymph % (Auto) 17.3 L [place] % (Auto) 1.6 Eos % (Auto) 0.7 Baso % (Auto) 0.3 Absolute Neuts (auto) 4.9 Absolute Lymphs (auto) 1.05 Nucleated RBC % 0 Sodium 134 L Potassium 3.7 Chloride 98 Carbon Dioxide 27.0 Anion Gap 9 BUN 16 Creatinine 0.73 Estim Creat Clear Calc 65.46 Est GFR (MDRD) Af Amer 102 Est GFR (MDRD) Non-Af 84 BUN/Creatinine Ratio 21.9 H Glucose 299 H Calcium 9.5 Total Bilirubin 1.10 H AST 21 ALT 28 Alkaline Phosphatase 110 Total Protein 7.9 Albumin 3.6 Globulin 4.3 H Albumin/Globulin Ratio 0.8 L Lipase 16 Discharge Plan Triage Chief Complaint: Abd Pain ED Provider: Derek Martínez Dx/Rx/DC Orders Instructions: ED Gastritis (Adult) Prescriptions: New sucralfate [Carafate] 1 gram tablet 1 g PO BID PRN (Reason: epigastric pain) Qty: 3 0RF sucralfate [Carafate] 100 mg/mL suspension 1 g PO BID PRN (Reason: epigastric pain) Qty: 473 0RF No Action vitamin E (dl, acetate) 180 mg (400 unit) capsule 400 unit PO DAILY albuterol sulfate 90 mcg/actuation HFA aerosol inhaler 2 puff inhalation Q4H PRN (Reason: shortness of breath or wheezing) Patient Comments: inhale two puffs FOUR TIMES DAILY NEEDED nitroglycerin [Nitrostat] 0.4 mg tablet, sublingual 0.4 mg SUBLINGUAL Q5M PRN (Reason: chest pain) Qty: 25 3RF melatonin 300 mcg tablet 0.3 mg PO HS 5-hydroxytryptophan (5-HTP) 100 mg capsule 100 mg PO DAILY multivitamin Tablet 1 tab PO DAILY Hair,Skin and Nails Tablet 1 tab PO DAILY coenzyme Q10 100 mg tablet 200 mg PO DAILY magnesium oxide 500 mg tablet 500 mg PO DAILY glimepiride 4 mg tablet 4 mg PO BID Patient Comments: Take 1 (one) Tablet by mouth two times daily calcium carb-D3-mag [id number] wf-gxet-pp-mg tablet 1 tab PO DAILY Rx Instructions: administer with a meal nystatin 100,000 unit/mL suspension 1 ml buccal 4X/DAY PRN Rx Instructions: administer 1/2 of dose in each side of the mouth lidocaine-prilocaine 2.5-2.5 % cream 1 applic topical ONCE PRN (Reason: port access) 30 Days Qty: 30 2RF ondansetron 8 mg tablet,disintegrating 8 mg PO Q8H PRN (Reason: nausea and vomiting) Qty: 30 2RF prochlorperazine maleate 10 mg tablet 10 mg PO Q6H PRN (Reason: nausea and vomiting) Qty: 30 2RF dexamethasone 4 mg tablet 4 mg PO .COMPLEX Qty: 30 0RF Rx Instructions: 4 mg orally ONLY the night before chemotherapy and the morning of chemotherapy; folic acid 1 mg tablet 1 mg PO DAILY Qty: 30 2RF omeprazole magnesium [Prilosec OTC] 20 mg tablet,delayed release (DR/EC) 20 mg PO DAILY Qty: 30 2RF (DME) Disability Placard See Rx Instructions .Route .MEDSUPPLY Qty: 1 0RF Rx Instructions: Lifetime; no expiration insulin lispro 100 unit/mL insulin pen SUBCUT Patient Comments: Inject 5 units subcutaneously three times daily. insulin glargine [Lantus Solostar U-100 Insulin] 100 unit/mL (3 mL) insulin pen 30 unit subcut QPM Rx Instructions: sliding scate isosorbide mononitrate 30 mg tablet extended release 24 hr 30 mg PO DAILY Qty: 90 3RF atorvastatin 80 mg tablet 80 mg PO QHS Qty: 90 3RF clopidogrel 75 mg tablet 75 mg PO DAILY Qty: 90 3RF lisinopril 10 mg tablet 10 mg PO DAILY Qty: 90 3RF metoprolol succinate 50 mg tablet extended release 24 hr 50 mg PO DAILY Qty: 90 3RF Primary Care Provider: Eduardo Alvarez Referrals: Eduardo Alvarez MD [Primary Care Provider] - Print Language: Swazi Disposition Disposition: Home, Self Care
[2023-10-29 21:54] VITALS: BP 127/62; PULSE 90; RESP 16; TEMP 36.8; O2SAT 91
[2023-10-29] MEDS: 0.9 % NaCl (Sterile) Posiflush 10 mL IV (22:07)
== END 2023-10-29 22:12 | disposition home or self-care (01) ==
PROVIDERS: Emergency Provider Student in an Organized Health Care Education/Training Program; PCP Family Medicine; Visit Provider Student in an Organized Health Care Education/Training Program
DX: K29.70 Gastritis, unspecified, without bleeding (principal); J44.9 Chronic obstructive pulmonary disease, unspecified; F17.200 Nicotine dependence, unspecified, uncomplicated; I25.2 Old myocardial infarction; Z95.5 Presence of coronary angioplasty implant and graft
CPT/HCPCS: 80053; 83690; 85025; 96374; 96376; 99285; A4216; J2405

== ENCOUNTER → 2023-11-30 | Outpatient (CLI) | payer MEDICARE, SELFPAY ==
--- NOTE | 2023-11-30 08:06 | CT_ITS ---
STUDY: CT CHEST T ABDOMEN WITH CONTRAST REASON FOR EXAM: Female, 68 years old. met NSCLC, assess response to treatment RADIATION DOSAGE (If Supplied By Facility): CTDIvol = ( 13.24 ) mGy, DLP = ( 1125.73 ) mGycm TECHNIQUE: Transaxial imaging was performed following intravenous administration of IV 100mL Isovue-370. Multiplanar coronal and sagittal images were reformatted. Individualized dose optimization techniques were used for this CT. COMPARISON: Comparison is made with prior study of September 07, 2023. FINDINGS: CHEST A right-sided Port-A-Cath are seen with the tip in the superior vena cava. Stable small benign-appearing bilateral axillary lymph nodes. Persistent 1.9 cm x 1.7 cm spiculated nodule in the anteromedial aspect of the right upper lobe. Stable calcified granuloma in the anterior aspect of the right lower lobe. Stable mild increased markings in the right upper lobe most likely secondary to prior radiation. There is been progressive decrease in size of the nodular density in the anterior medial aspect of the left upper lobe as seen on axial image #45. Presently measures 7.9 mm. There is no demonstrated pleural abnormality. There are calcifications of the coronary arteries. Stable prominence of the subcarinal lymph nodes. Stable bilateral hilar lymph nodes. Normal hilar regions. Normal unenhanced pulmonary arteries. Normal aorta arch and descending thoracic aorta. Normal osseous structures. There is no demonstrated abnormality of the visualized upper abdomen. ABDOMEN The visualized lung bases are unremarkable. The visualized portions of the heart are within normal limits. Normal liver. Normal gallbladder and extrahepatic biliary system. Normal spleen. Normal pancreas. Normal bilateral adrenal glands. Normal right kidney. Normal left kidney. Normal visualized stomach. Normal small intestine. There are multiple colonic diverticula consistent with diverticulosis. There is non-visualization of the appendix. There is diffuse atherosclerotic calcification of the abdominal aorta, without a demonstrated aneurysm. Normal inferior vena cava. Normal retroperitoneum. Normal abdominal wall. There are diffuse degenerative changes of the visualized lumbar spine. CT/CT Chest AND Abd W/ Contrast IMPRESSION: Essentially stable suspected nodule in the anterior aspect of the right upper lobe. Interval decrease in size of the previously seen nodule in the anteromedial aspect of the left upper lobe. Electronically Signed: Chacorta Whitt MD at 13:25 EDT ,
[2023-11-30] MEDS: 0.9% Saline Lock 10 ML Syringe IV (08:17)
== END | disposition home or self-care (01) ==
LOC: CT 07:57
PROVIDERS: PCP Family Medicine; Referring Provider Nurse Practitioner Family; Visit Provider Nurse Practitioner Family
DX: C34.91 Malignant neoplasm of unspecified part of right bronchus or lung (principal); C77.9 Secondary and unspecified malignant neoplasm of lymph node, unspecified
CPT/HCPCS: 71260; 74160; Q9967

== ENCOUNTER 2023-12-18 06:19 | Day surgery (SDC) | payer MEDICARE, SELFPAY ==
[2023-12-18] VITALS (9 sets, daily range): BP systolic 109–184; BP diastolic 47–99; PULSE 78–95; RESP 16–18; TEMP 36.2–36.8; O2SAT 93–97; BMI 29.2
--- NOTE | 2023-12-18 06:25 | HP.PCM_ITS ---
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 Accompanied by: Unknown Is patient in pain?: Yes Allergies bupropion (From Wellbutrin) Allergy (Severe, Verified 11/13/23 09:08) Rashcephalexin Allergy (Verified 11/13/23 09:08) HivesFish Containing Products Allergy (Verified 11/13/23 09:08) AnaphylaxisPenicillins Allergy (Verified 11/13/23 09:08) Anaphylaxisvenom-honey bee (bee venom (honey bee)) Allergy (Verified 11/13/23 09:08) Shortness of breathsulfadiazine Adverse Reaction (Severe, Verified 11/13/23 09:08) Unknownmetformin Adverse Reaction (Verified 11/13/23 09:08) Diarrhea Medications ?Medication ?Instructions ?Recorded ?Confirmed ?Type albuterol sulfate 90 mcg/actuation 2 puff inhalation Q4H PRN 07/22/21 11/13/23 History aerosol inhaler shortness of breath or wheezing vitamin E (dl, acetate) 180 mg 400 unit PO DAILY 07/22/21 11/13/23 History (400 unit) capsule nitroglycerin 0.4 mg sublingual 0.4 mg sublingual Q5M PRN chest 09/06/21 11/13/23 Rx tablet (Nitrostat) pain #25 tabs 5-hydroxytryptophan (5-HTP) 100 mg 100 mg PO DAILY 12/27/22 11/13/23 History capsule melatonin 300 mcg tablet 0.3 mg PO HS 12/27/22 11/13/23 History multivitamin 1 tab PO DAILY 12/27/22 11/13/23 History multivitamin with minerals 1 tab PO DAILY 12/27/22 11/13/23 History (Hair,Skin and Nails tablet) calcium carb-vit [id number] 1 tab PO DAILY 02/27/23 11/13/23 History 333 mg-200 unit-133 mg-5 mg tablet glimepiride 4 mg tablet 4 mg PO BID 02/27/23 11/13/23 History magnesium oxide 500 mg PO DAILY 02/27/23 11/13/23 History dexamethasone 4 mg tablet 4 mg PO .COMPLEX #30 tabs 04/20/23 11/13/23 Rx lidocaine-prilocaine 2.5 %-2.5 % 1 applic topical ONCE PRN port 04/20/23 11/13/23 Rx topical cream access 30 days #30 grams ondansetron 8 mg disintegrating 8 mg PO Q8H PRN nausea and 04/20/23 11/13/23 Rx tablet vomiting #30 tabs prochlorperazine maleate 10 mg 10 mg PO Q6H PRN nausea and 04/20/23 11/13/23 Rx tablet vomiting #30 tabs insulin lispro 100 unit/mL subcut 05/01/23 11/13/23 History subcutaneous pen folic acid 1 mg tablet 1 mg PO DAILY #30 tabs 08/03/23 11/13/23 Rx isosorbide mononitrate 30 mg 30 mg PO DAILY #90 tabs 08/08/23 11/13/23 Rx tablet,extended release 24 hr coenzyme Q10 100 mg tablet 200 mg PO DAILY 08/18/23 11/13/23 History insulin glargine 100 unit/mL (3 30 unit subcut QPM 08/18/23 11/13/23 History mL) subcutaneous pen (Lantus Solostar U-100 Insulin) nystatin 100,000 unit/mL oral 1 ml buccal 4X/DAY PRN 08/18/23 11/13/23 History suspension atorvastatin 80 mg tablet 80 mg PO QHS #90 tabs 09/10/23 11/13/23 Rx clopidogrel 75 mg tablet 75 mg PO DAILY #90 tabs 09/10/23 11/13/23 Rx lisinopril 10 mg tablet 10 mg PO DAILY #90 tabs 09/10/23 11/13/23 Rx metoprolol succinate 50 mg 50 mg PO DAILY #90 tabs 10/04/23 11/13/23 Rx tablet,extended release 24 hr Disability Placard #1 ea 10/26/23 11/13/23 Rx sucralfate 1 gram tablet (Carafate) 1 g PO BID PRN epigastric pain #3 10/29/23 11/13/23 Rx tabs sucralfate 100 mg/mL oral 1 g (10 mL) PO BID PRN epigastric 10/29/23 11/13/23 Rx suspension (Carafate) pain #473 mL omeprazole 40 mg capsule,delayed 40 mg PO DAILY #60 caps 11/13/23 11/13/23 Rx release PFSH Medical History Postprandial vomiting Epigastric pain Acid reflux Hyperglycemia Encounter for chemotherapy management Vaginitis Thrush, oral Rash Insulin dependent diabetes mellitus Cancer Bilateral lower extremity edema Encounter for vitamin B12 injection while on pemetrexed chemotherapy Encounter for education Metastasis to lung Regional lymph node metastasis present Primary cancer of right lung Wears hearing aid Wears glasses Post-menopausal Anxiety Low iron Vertigo History of IBS Smoker Hoarseness Chronic cough History of non-ST elevation myocardial infarction (NSTEMI) (01/19/09) Essential (primary) hypertension Nicotine dependence Atherosclerosis of coronary artery without angina pectoris Diabetes mellitus type II, controlled Obesity (BMI 30-39.9) COPD (chronic obstructive pulmonary disease) HLD (hyperlipidemia) SVT (supraventricular tachycardia) Surgical History History of bronchoscopy History of lung biopsy History of toe surgery History of cardiac catheterization History of appendectomy (~02/2021) History of colonoscopy (~2014) History of coronary artery stent placement (01/19/09) History of bilateral carpal tunnel release History of hysterectomy History of left heart catheterization (11/25/15) Family History Father Diabetes Hypertension CAD (coronary artery disease) Hx CABG Myocardial infarction, Onset Age: 61 Cancer, Onset Age: 75Mother , from aneurysm at age 40 CVA (cerebral vascular accident)Daughter CAD (coronary artery disease)Brother Cancer Social History Smoking Status: Light Smoker (<10/day) alcohol intake: never substance use type: does not use caffeine: Yes Type: coffee what type of physical activity do you participate in: none seatbelt use: always do you feel safe at home: Yes HPI HPI HPI: Patient is a 68-year-old female here for epigastric pain. She is undergoing chemotherapy for lung cancer currently. She reports for the last 3 months she has been having epigastric pain especially with eating. She has been trying some Carafate which has been helping but she is still having a lot of pain in her upper abdomen. ROS General General: Yes weight change and fatigue; No appetite, colon cancer, breast cancer or weakness HEENT HEENT: No difficulty swallowing, eye injury, eye surgery, swollen glands or hoarseness Endo Endocrine: Yes diabetes mellitus; No thyroid disease, thyroid cancer, Hair loss, heat intolerance or cold intolerance Skin Skin: No rash or changing moles Breast Breast: No left breast lump, right breast lump, nipple discharge, breast pain, abnormal mammogram, abnormal US or breast enlargement Musc Musculoskeletal: Yes back problems; No arthritis, rheumatoid arthritis, gout or joint pain Cardio Cardiovascular: Yes heart disease, high blood pressure, heart attack and heart stent; No murmur, pacemaker, atrial fibrillation, palpitations, shortness of breat with exertion or chest pain Psych Psychiatric: No depression, anxiety or hearing voices Resp Respiratory: Yes shortness of breath, No sleep apnea, Yes cough, Yes COPD, No asthma, No emphysema and No wheezing Gastro Gastrointestinal: Yes abdominal pain, Yes nausea or vomiting, No diarrhea, Yes constipation, No blood in stool, Yes acid reflux, Yes hemorrhoids, No ulcers, No gallbladder problem and No black,tarry stools Additional Details: Epigastric pain with frequent belching Jamie Hematologic: Yes blood thinners, No blood disorders, No bleeding, No anemia and No blood clots Neuro Neurologic: No system reviewed and no additional complaints, except as documented, No as per HPI, No abnormal gait, No abnormal hearing, No abnormal movements, No abnormal speech, No behavioral changes, No burning sensations, No confusion, No convulsions, No disequilibrium, No dizziness, No localized weakness, No frequent falls, No headache(s), No lack of coordination, No loss of vision, No memory loss, No numbness, No other visual disturbances, No radicular pain, No restless legs, No sensory deficit, No syncope, No tingling, No tremor(s), No weakness and No other Exam Const General: cooperative Orientation: alert and oriented x3 HENMT Head: normal to inspection Neck Neck: normal visual inspection and full ROM Chest Chest palpation & inspection: normal inspection of the chest Resp Effort & Inspection: normal respiratory effort Auscultation: clear to auscultation bilaterally Cardio Rate: regular rate Rhythm: regular rhythm GI Inspection: non-distended Palpation: soft and tender in the epigastrum Skin General: no rashes or lesions noted Neuro General: patient alert and patient oriented x3 Extrem General: full ROM Psych Appearance: grossly normal Mental Status: mental status grossly normal Assessment and Plan Assessment and Plan (1) Epigastric pain: Status: Acute Plan: The patient has been ongoing epigastric pain especially after eating. She tried Carafate which helped some but is still very painful. She describes the pain in the epigastric region. I discussed performing EGD to evaluate for peptic ulcer disease and I will start her on PPI. I explained endoscopy in detail to the patient. I explained the risks including but not limited to stroke or heart attack with anesthesia, perforation of the GI tract, bleeding, infection. I explained that any of these could necessitate further emergency surgery. The patient understands and all questions were answered sufficiently. The patient wishes to proceed with procedure. Patient will hold Plavix for 5 days. Jorge Alberto Disla MD Pager: [facility] [address] [place] [address], [address] [place] [address] Office: I have examined the patient and the H&P has been reviewed. There are no clinical changes since date of exam.
--- NOTE | 2023-12-18 07:04 | PRE.ANES_ITS ---
ASA Classification* ASA Classification ASA Classification: 3 Assessment & Plan Anesthesia* Anesthesia Assessment Anesthesia Assessment: Discussed sedation and/or anesthesia options, risks, benefits, and alternatives with patient/parents/legal guardian/POA. Questions invited. The patient/parents/legal guardian/POA seems to understand and agrees to proceed with anesthesia plan. Reviewed the physical assessment, medical history, allergy history and patient home medications list prior to surgery/procedure/anesthetic and documented any changes. Performed airway and anesthesia risk assessments. Anesthesia Type Anesthesia Type: MAC (see written pre anesthesia record for full assessment) Anesthesia Focused Assessment* Temperature: 97.4 F Pulse Rate: 95 Blood Pressure: 127/58 Respiratory Rate: 16 Pulse Ox: 93 Airway Assessment Mouth opens: >3 cm Mallampati Score: II Focused Labs Anesthesia Preop lab: CBC WBC 7.2 K/mm3 (4.4-11.0) 12/06/23 09:40 RBC 3.81 M/mm3 (4.2-5.4) L 12/06/23 09:40 Hgb 12.8 g/dL (12.0-15.0) 12/06/23 09:40 Hct 40.1 % (37-47) 12/06/23 09:40 Plt Count 417 K/mm3 (150-450) 12/06/23 09:40 CHEMISTRY Potassium 3.9 mmol/L (3.5-5.1) 12/06/23 09:40 Sodium 138 mmol/L (136-145) 12/06/23 09:40 Magnesium 1.9 mg/dL (1.6-2.6) 10/05/23 08:18 Phosphorus 2.7 mg/dL (2.5-4.9) 10/05/23 08:18 BUN 12 mg/dL (7-18) 12/06/23 09:40 Creatinine 0.82 mg/dL (0.55-1.02) 12/06/23 09:40 Glucose 366 mg/dL (74-106) H 12/06/23 09:40 POC Glucose 222 mg/dL (74-106) H 05/01/23 08:42 TSH 0.70 uIU/mL (0.358-3.74) 09/14/23 10:25 COAG PT 12.4 SECONDS (11.7-14.9) 03/02/23 08:43 Pre-Assessment Diagnosis/Proposed Procedure Planned Operative Procedure(s): egd Anesthesia History Anesthesia History - research statistician: Anesthesia History - research statistician Hx Hospitalization No 12/12/23 13:23 Any Problems With Anesthesia No 12/12/23 13:23 Cholinesterase deficiency No 12/12/23 13:23 You/Your Family Experience No 12/12/23 13:23 fever (hyperthermia) with Relationship Recent Exposure to Contagious No 12/18/23 06:57 Disease Does patient have nerve No 12/12/23 13:23 stimulator Patient instructed to have device shut off --Does patient have Pacemaker No 12/18/23 07:01 or ICD? When Was Last Pacemaker Check QUESTION #4 FULL TEXT: You/Your Family Experience fever (hyperthermia) with Anesthesia Last Oral Intake Last Oral intake: Last Oral Intake NPO since 00:00 12/18/23 07:01 Meds taken in AM with sips of Yes 12/18/23 07:01 water? Meds patient instructed to oxycodone 12/18/23 07:01 take am of surgery PONV PONV - research statistician: PONV - research statistician Female Yes 12/12/23 13:23 HX of Motion Sickness No 12/12/23 13:23 HX of N/V After Surgery No 12/12/23 13:23 Non-Smoker No 12/12/23 13:23 Duration of Surgery greater No 12/12/23 13:23 than 60 minutes Number of Risk Factors 1 12/12/23 13:23 PONV Score Low Risk 12/12/23 13:23 Height & Weight Height & Weight: Anesthesia: Height & Weight Height 5 ft 3 in 12/18/23 07:01 Weight: 75 kg 12/18/23 07:01 Body Mass Index (BMI) 29.2 12/18/23 07:01 Respiratory Assessment Respiratory Assessment - research statistician: Respiratory Tract Infection Hx - research statistician Hx Respiratory Tract Infection No 12/12/23 13:23 STOP Sleep Apnea STOP Sleep Apnea - research statistician: STOP Sleep Apnea - research statistician Hx Hypertension Yes: controlled with med 12/12/23 13:23 Hx Sleep Apnea No 12/12/23 13:23 CPAP BIPAP Do you snore loudly (louder No 12/12/23 13:23 than talking or can be heard Do you often feel tired/ No 12/12/23 13:23 fatigued/ sleepy during daytime? Has anyone observed you stop No 12/12/23 13:23 breathing during sleep? STOP Results Negative 12/12/23 13:23 QUESTION #5 FULL TEXT : Do you snore loudly (louder than talking or can be heard through closed doors)? Tobacco Use History Tobacco Use History - research statistician: Tobacco Use History - research statistician Tobacco Use Smoking Status Heavy Smoker (>10/day) 12/12/23 13:23 Hx Tobacco Use No 12/12/23 13:23 Years Smoking Packs Smoked per Day 1 12/12/23 13:23 Smoking Cessation Date was within the last 15 years Hx Smoking Cessation Date Hx Smoking Cessation No 12/12/23 13:23 Counseling Hematologic Medial History Hematologic Hx - research statistician: Hematologic Medical Hx - hospice administrator Hx of Blood Transfusion No 12/12/23 13:23 Hx of Transfusion in last 3 No 12/12/23 13:23 Months Date of Last Transfusion (if within last 3 months) Ever experience any problems No 12/12/23 13:23 with transfusion(s)? Specify any problems Hx of Preganancy in last 3 N/A 12/12/23 13:23 Months Nurse Filling Out Transfusion NBUCHER 12/12/23 13:23 & Questions: Date: 12/12/23 12/12/23 13:23 Time: 13:27 12/12/23 13:23 Patient unable to answer at this time (ie. confused, unrespo /Reproduction History /Reproductive History - research statistician: /Reproductive Hx- research statistician Hx Now No 12/12/23 13:23 Gestational Age (in weeks): EDC: Hx Hx Para Hx Section SAB No 12/12/23 13:23 Active Medications Active Medications: Current Medications Generic Name Dose Route Start Last Admin Trade Name Freq PRN Reason Stop Dose Admin Lactated Ringer's 1,000 mls @ 15 mls/hr 12/18/23 06:30 IV .Q48H MAURILIO PFSH Medical History Skin tear High cholesterol Restless legs Shortness of breath on exertion Heartburn Gastritis Hypertension History of stress test Cardiology follow-up encounter Postprandial vomiting Epigastric pain Acid reflux Hyperglycemia Encounter for chemotherapy management Vaginitis Thrush, oral Rash Insulin dependent diabetes mellitus Cancer Bilateral lower extremity edema Encounter for vitamin B12 injection while on pemetrexed chemotherapy Encounter for education Metastasis to lung Regional lymph node metastasis present Primary cancer of right lung Wears hearing aid Wears glasses Post-menopausal Anxiety Low iron Vertigo History of IBS Smoker Hoarseness Chronic cough History of non-ST elevation myocardial infarction (NSTEMI) (01/19/09) Essential (primary) hypertension Nicotine dependence Atherosclerosis of coronary artery without angina pectoris Diabetes mellitus type II, controlled Obesity (BMI 30-39.9) COPD (chronic obstructive pulmonary disease) HLD (hyperlipidemia) SVT (supraventricular tachycardia) Home Medications ?Medication ?Instructions ?Recorded ?Last Taken ?Type albuterol sulfate 90 mcg/actuation 2 puff inhalation Q4H PRN 07/22/21 Unknown History aerosol inhaler shortness of breath or wheezing vitamin E (dl, acetate) 180 mg 400 unit PO DAILY 07/22/21 Unknown History (400 unit) capsule nitroglycerin 0.4 mg sublingual 0.4 mg sublingual Q5M PRN chest 09/06/21 Unknown Rx tablet (Nitrostat) pain #25 tabs 5-hydroxytryptophan (5-HTP) 100 mg 100 mg PO DAILY 12/27/22 Unknown History capsule melatonin 300 mcg tablet 0.3 mg PO HS 12/27/22 Unknown History multivitamin 1 tab PO DAILY 12/27/22 Unknown History multivitamin with minerals 1 tab PO DAILY 12/27/22 Unknown History (Hair,Skin and Nails tablet) calcium carb-vit [id number] 1 tab PO DAILY 02/27/23 Unknown History 333 mg-200 unit-133 mg-5 mg tablet glimepiride 4 mg tablet 4 mg PO BID 02/27/23 Unknown History magnesium oxide 500 mg PO DAILY 02/27/23 Unknown History dexamethasone 4 mg tablet 4 mg PO .COMPLEX #30 tabs 04/20/23 Unknown Rx lidocaine-prilocaine 2.5 %-2.5 % 1 applic topical ONCE PRN port 04/20/23 Unknown Rx topical cream access 30 days #30 grams ondansetron 8 mg disintegrating 8 mg PO Q8H PRN nausea and 04/20/23 Unknown Rx tablet vomiting #30 tabs prochlorperazine maleate 10 mg 10 mg PO Q6H PRN nausea and 04/20/23 Unknown Rx tablet vomiting #30 tabs insulin lispro 100 unit/mL 1 sliding scale dose subcut TID 05/01/23 04/30/23 History subcutaneous pen folic acid 1 mg tablet 1 mg PO DAILY #30 tabs 08/03/23 Unknown Rx isosorbide mononitrate 30 mg 30 mg PO DAILY #90 tabs 08/08/23 Unknown Rx tablet,extended release 24 hr insulin glargine 100 unit/mL (3 30 unit subcut QPM 08/18/23 Unknown History mL) subcutaneous pen (Lantus Solostar U-100 Insulin) nystatin 100,000 unit/mL oral 1 ml buccal 4X/DAY 08/18/23 Unknown History suspension atorvastatin 80 mg tablet 80 mg PO QHS #90 tabs 09/10/23 Unknown Rx clopidogrel 75 mg tablet 75 mg PO DAILY #90 tabs 09/10/23 12/13/23 Rx lisinopril 10 mg tablet 10 mg PO DAILY #90 tabs 09/10/23 Unknown Rx metoprolol succinate 50 mg 50 mg PO DAILY #90 tabs 10/04/23 Unknown Rx tablet,extended release 24 hr Disability Placard #1 ea 10/26/23 Unknown Rx omeprazole 40 mg capsule,delayed 40 mg PO DAILY #60 caps 11/13/23 Unknown Rx release oxycodone 5 mg tablet 5 mg PO TID 12/12/23 12/18/23 History Allergy/AdvReac Type Severity Reaction Status Date / Time bupropion (From Wellbutrin) Allergy Severe Rash Verified 12/12/23 13:16 cephalexin Allergy Hives Verified 12/12/23 13:16 Fish Containing Products Allergy Anaphylaxis Verified 12/12/23 13:16 Penicillins Allergy Anaphylaxis Verified 12/12/23 13:16 venom-honey bee (bee venom Allergy Shortness Verified 12/12/23 13:16 (honey bee)) of breath sulfadiazine AdvReac Severe Unknown Verified 12/12/23 13:16 Sulfa (Sulfonamide AdvReac Intermediate Pain in Verified 12/12/23 13:28 Antibiotics) joints metformin AdvReac Diarrhea Verified 12/12/23 13:16 Family History Father Diabetes Hypertension CAD (coronary artery disease) Hx CABG Myocardial infarction, Onset Age: 63 Cancer, Onset Age: 77 Mother , from aneurysm at age 40 CVA (cerebral vascular accident) Daughter CAD (coronary artery disease) Brother Cancer Surgical History History of bronchoscopy History of lung biopsy History of toe surgery History of cardiac catheterization History of appendectomy (~02/2021) History of colonoscopy (~2014) History of coronary artery stent placement (01/19/09) History of bilateral carpal tunnel release History of hysterectomy History of left heart catheterization (11/25/15) Social History Smoking Status: Heavy Smoker (>10/day) alcohol intake: never substance use type: does not use caffeine: Yes Type: coffee what type of physical activity do you participate in: none seatbelt use: always do you feel safe at home: Yes Review of Systems (Anesthesia) ROS Narrative System reviewed and no additional complaints, except as documented.
[2023-12-18] MEDS: Lactated Ringers 1,000 ML 15 ML IV (07:06)
[2023-12-18] MEDS: Ipratropium/Albuterol Sulfate 3 ML AMPUL.NEB INHALATION (07:08)
[2023-12-18 07:11] LABS: Bedside Glucose 221 mg/dL (74-106)
--- NOTE | 2023-12-18 07:22 | PCM.POST.ANE ---
Anesthesia: Postop Eval I Current Vital Signs Temperature: 97.2 F Pulse Rate: 95 Blood Pressure: 125/82 Respiratory Rate: 18 Pulse Ox: 96 Oxygen Delivery Method: Nasal Cannula Oxygen Flow Rate (L/min): 4 CO2 Monitorin Assessment Airway patent: Yes Spontaneous unlabored respirations: Yes Mental status: Awake and Calm nausea: No Vomiting: No Anesthesia Complication: No Fluid Hydration Crystalloid volume administer (ml): 100 Total IV fluid infused: 100 Progress Note Anesthesia document: Postop Eval 1 completed: Yes
--- NOTE | 2023-12-18 07:30 | EGD_PTH ---
PATIENT: CARINE NEWTON LOC: EN U#:[id number] AGE/SX: 68/F ROOM: RE12/18/[address]: Dr. Jorge Alberto Disla MD : 1955 BED: DIS: 12/18/2023 SPEC #: [id number] RECD: 12/18/23 10:34 STATUS: GENNY GEORGE #: [id number] GORGE: 12/18/23 07:[address]: Jorge Alberto Dsila DEPT: SURGICAL PATHOLOGY RECD BY: Cecilio Benitez ENTERED: 12/18/23 11:05 SP TYPE: EGD BIOPSY OT DR: Dr. Eduardo Alvarez MD Tissues: Stomach, NOS Procedures: Special Stain Group I Surgery Specimen Level IV Alcian Blue/PAS (control) HEADER OPERATION: EGD, biopsy PRE-OP DIAGNOSIS: Epigastric pain TISSUE SUBMITTED: Antrum biopsy MICROSCOPIC DIAGNOSIS Antrum, biopsy: Moderate gastritis. Focal intestinal metaplasia (goblet cell metaplasia). See microscopic description and comment. / 12/19/2023 COMMENT The results of immunohistochemistry for Helicobacter pylori will be reported separately ([id number]). Alcian blue/PAS stain with matched control is used in the evaluation of the specimen. MICROSCOPIC DESCRIPTION Slides are reviewed. The specimen shows fragments of gastric mucosa with chronic inflammatory cell infiltrates in the lamina propria consisting of lymphocytes and plasma cells, consistent with moderate chronic gastritis. Focal intestinal metaplasia (goblet cell metaplasia) is also noted. GROSS DESCRIPTION Received in fixative is one container labeled with the patient's name and designated Antrum biopsy. The specimen consists of two irregular fragments of light jugn soft tissue that in aggregate measure 0.6 x 0.2 x 0.1 cm. The specimen is totally submitted in one cassette. [facility] 12/18/2023 TC:3 CPT:44321,08714
--- NOTE | 2023-12-18 07:30 | IMM_PTH ---
PATIENT: CARINE NEWTON LOC: EN U#:[id number] AGE/SX: 68/F ROOM: RE12/18/[address]: Dr. Jorge Alberto Dilsa MD : 1955 BED: DIS: 12/18/2023 SPEC #: [id number] RECD: 12/18/23 11:38 STATUS: GENNY REQ #: [id number] GORGE: 12/18/23 07:[address]: Jorge Alberto Dilsa DEPT: IMMUNOHISTOCHEMISTRY RECD BY: Pelon Billings ENTERED: 12/18/23 11:38 SP TYPE: IMMUNO OTHR DR: Dr. Eduardo Alvarez MD Tissues: Gastric mucous membrane Procedures: H Pylori (initial) PHYSICIAN & INSTITUTION [place] [id number] SPECIMEN INFORMATION: Tissue Source: Antrum biopsy Clinical Info: Epigastric pain Specimen Number: [id number] CPT code: 49851 METHODOLOGY: Deparaffinized sections of prefer/formalin-fixed tissue or PAP/DQ stained slides are incubated with monoclonal/polyclonal antibodies/oligonucleotide probes. Localization is made via biotin free immunoperoxidase method. Appropriate controls are performed and reacted as expected. Results on target cell population are indicated in the following table: RESULTS: ANTIBODY / CLONE RESULT H Pylori (polyclonal) negative These tests were developed and their performance characteristics determined by [facility]. They may not have been cleared or approved by the U.[place]. Food and Drug Administration. The FDA has determined that such clearance or approval is not necessary. The above immunohistochemical/dualISH markers are ordered and reviewed by the Pathologist. INTERPRETATION: Antrum, biopsy: Negative for Helicobacter pylori organisms. COOKIE/ 12/19/2023
--- NOTE | 2023-12-18 07:49 | OP.CCLET_ITS ---
12/18/2023 Eduardo Alvarez MD [address] [place] [address] Re : Upper GI endoscopy procedure for Dominique Leal Dear Dr. Alvarez This procedure was performed on Monday, December 18, 2023. My impressions and recommendations are as follows: Impressions : - Normal esophagus. - Normal examined duodenum. - Gastritis with hemorrhage. Biopsied. - Small hiatal hernia. Recommendations : - Discharge patient to home. - Resume previous diet. - Continue present medications. - Resume Plavix (clopidogrel) at prior dose tomorrow. - Await pathology results. My findings are described in the full procedure note, which is enclosed. If I can be of further assistance, please feel free to contact me at Doctor phone number(s): , Work: . Sincerely, Jorge Alberto Disla MD 12/18/2023 7:48:14 AM This report has been signed electronically.
--- NOTE | 2023-12-18 07:49 | OP.EGD_ITS ---
Patient Name: Dominique Leal Procedure Date: 12/18/2023 7:23 AM Date of : 1955 Age: 68 Procedure: Upper GI endoscopy Indications: Epigastric abdominal pain, Heartburn Providers: Jorge Alberto Disla MD Referring MD: Eduardo Alvarez MD Medicines: Propofol per Anesthesia Patient Profile: This is a 68 year old female. Refer to note in patient chart for documentation of history and physical. Complications: No immediate complications. Estimated blood loss: Minimal. Procedure: Pre-Anesthesia Assessment: - Prior to the procedure, a History and Physical was performed, and patient medications and allergies were reviewed. The patient's tolerance of previous anesthesia was also reviewed. The risks and benefits of the procedure and the sedation options and risks were discussed with the patient. All questions were answered, and informed consent was obtained. Prior Anticoagulants: The patient has taken Plavix (clopidogrel), last dose was 5 days prior to procedure. After reviewing the risks and benefits, the patient was deemed in satisfactory condition to undergo the procedure. After obtaining informed consent, the endoscope was passed under direct vision. Throughout the procedure, the patient's blood pressure, pulse, and oxygen saturations were monitored continuously. The Endoscope was introduced through the mouth, and advanced to the fourth part of duodenum. The upper GI endoscopy was accomplished without difficulty. The patient tolerated the procedure well. Scope In: 7:37:20 AM Scope Out: 7:41:28 AM Total Procedure Duration Time 0 hours 4 minutes 8 seconds Findings: The esophagus was normal. The examined duodenum was normal. Scattered mild inflammation with hemorrhage characterized by adherent blood was found in the stomach. Biopsies were taken with a cold forceps for Helicobacter pylori testing. A small hiatal hernia was present. Impression: - Normal esophagus. - Normal examined duodenum. - Gastritis with hemorrhage. Biopsied. - Small hiatal hernia. Recommendation: - Discharge patient to home. - Resume previous diet. - Continue present medications. - Resume Plavix (clopidogrel) at prior dose tomorrow. - Await pathology results. Procedure Code(s): --- Professional --- 01273, Esophagogastroduodenoscopy, flexible, transoral; with biopsy, single or multiple Diagnosis Code(s): --- Professional --- K29.71, Gastritis, unspecified, with bleeding K44.9, Diaphragmatic hernia without obstruction or gangrene R10.13, Epigastric pain R12, Heartburn CPT copyright 2021 [employer]. All rights reserved. The codes documented in this report are preliminary and upon information coder review may be revised to meet current compliance requirements. Jorge Alberto Disla MD 12/18/2023 7:48:14 AM This report has been signed electronically. Number of Addenda: 0 Note Initiated On: 12/18/2023 7:23 AM
--- NOTE | 2023-12-18 07:50 | SUR.PHASEI ---
NAUSEA & DRY HEAVES, WILL CONTACT DR GEORGE FOR ZOFRAN
--- NOTE | 2023-12-18 08:14 | POSTOPAN2_ITS ---
Anesthesia Postop Eval I Sum Postop Eval Completion status Anesthesia document: Postop Eval 1 completed: Yes Anesthesia Postop Eval I Summary Anesthesia Postop Eval I Summary: Anesthesia Postop Eval I: Assessment Summary Airway patent Yes 12/18/23 07:44 FIELD SERVICE ANALYST.SCHR Spontaneous unlabored Yes 12/18/23 07:44 FIELD SERVICE ANALYST.SCHR respirations Mental status Awake,Calm 12/18/23 07:44 FIELD SERVICE ANALYST.SCHR nausea No 12/18/23 07:44 FIELD SERVICE ANALYST.SCHR Vomiting No 12/18/23 07:44 FIELD SERVICE ANALYST.[facility] Anesthesia Postop Eval I: Fluid Summary Crystalloid volume administer 100 12/18/23 07:44 FIELD SERVICE ANALYST.SCHR (ml) Colloids volume administered ( ml) Blood Product volume administered (ml) Total IV fluid infused 100 12/18/23 07:44 FIELD SERVICE ANALYST.SCHR Anesthesia Postop Eval I: Summary Notes Anesthesia Complication No 12/18/23 07:44 FIELD SERVICE ANALYST.[facility] Anesthesia Complication Comment: Post-operative progress note Anesthesia: Postop Eval II Evaluation Mental status: Awake Pain Level: 0 nausea: No Vomiting: No
--- NOTE | 2023-12-18 08:14 | PCM.POSTANE2 ---
Anesthesia Postop Eval I Sum Postop Eval Completion status Anesthesia document: Postop Eval 1 completed: Yes Anesthesia Postop Eval I Summary Anesthesia Postop Eval I Summary: Anesthesia Postop Eval I: Assessment Summary Airway patent Yes 12/18/23 07:44 PHYSICS FACULTY MEMBER.SCHR Spontaneous unlabored Yes 12/18/23 07:44 PHYSICS FACULTY MEMBER.SCHR respirations Mental status Awake,Calm 12/18/23 07:44 PHYSICS FACULTY MEMBER.SCHR nausea No 12/18/23 07:44 PHYSICS FACULTY MEMBER.SCHR Vomiting No 12/18/23 07:44 PHYSICS FACULTY MEMBER[facility] Anesthesia Postop Eval I: Fluid Summary Crystalloid volume administer 100 12/18/23 07:44 PHYSICS FACULTY MEMBER.SCHR (ml) Colloids volume administered ( ml) Blood Product volume administered (ml) Total IV fluid infused 100 12/18/23 07:44 PHYSICS FACULTY MEMBER.SCHR Anesthesia Postop Eval I: Summary Notes Anesthesia Complication No 12/18/23 07:44 PHYSICS FACULTY MEMBER.[facility] Anesthesia Complication Comment: Post-operative progress note Anesthesia: Postop Eval II Evaluation Mental status: Awake Pain Level: 0 nausea: No Vomiting: No
== END 2023-12-18 08:28 | disposition home or self-care (01) ==
LOC: EN 06:19 → AC 06:20
PROVIDERS: PCP Family Medicine; Referring Provider Family Medicine; Visit Provider Surgery
PROC: 0DJ08ZZ Inspection of Upper Intestinal Tract, Via Natural or Artificial Opening Endoscopic (ICD-10-PCS; CPT 43235; principal; 2023-12-18 07:25)
DX: R10.13 Epigastric pain (principal); C34.90 Malignant neoplasm of unspecified part of unspecified bronchus or lung; J44.9 Chronic obstructive pulmonary disease, unspecified; Z79.4 Long term (current) use of insulin; E11.9 Type 2 diabetes mellitus without complications; K44.9 Diaphragmatic hernia without obstruction or gangrene; I10 Essential (primary) hypertension; E78.5 Hyperlipidemia, unspecified; F17.200 Nicotine dependence, unspecified, uncomplicated; Z79.84 Long term (current) use of oral hypoglycemic drugs; I25.10 Atherosclerotic heart disease of native coronary artery without angina pectoris; I25.2 Old myocardial infarction; Z79.899 Other long term (current) drug therapy; Z79.02 Long term (current) use of antithrombotics/antiplatelets; K21.9 Gastro-esophageal reflux disease without esophagitis; Z90.49 Acquired absence of other specified parts of digestive tract; Z95.5 Presence of coronary angioplasty implant and graft; Z90.710 Acquired absence of both cervix and uterus; Z92.21 Personal history of antineoplastic chemotherapy; K29.71 Gastritis, unspecified, with bleeding; K31.A0 Gastric intestinal metaplasia, unspecified
CPT/HCPCS: 43239; 82962; 88305; 88312; 88342; 94640; J7120; J2405

== ENCOUNTER 2024-02-17 18:24 | Emergency (ER) | payer MEDICARE, SELFPAY ==
[2024-02-17 18:25] VITALS: BP 91/56; PULSE 102; RESP 21; TEMP 36.6; O2SAT 93; BMI 27.3
[2024-02-17 18:28] VITALS: BP 91/56; PULSE 102; RESP 21; TEMP 36.6; O2SAT 93
--- NOTE | 2024-02-17 18:32 | ED.RN ---
TRIAGING PATIENT. NO ED DOC SIGNED UP YET. NOTE PLACED WITH CHART
[2024-02-17] MEDS: Lidocaine 5% Patch 1 PATCH TOPICAL (18:58)
[2024-02-17] MEDS: Ondansetron 4 MG/2 ML Vial IV ×2 (18:59→21:57)
[2024-02-17] MEDS: Morphine 4 MG/ML Syringe IV ×2 (18:59→21:18)
[2024-02-17] MEDS: 0.9% Normal Saline (1000mL) 1,000 ML 999 ML IV (19:00)
--- NOTE | 2024-02-17 19:10 | RAD_ITS ---
INDICATION: cough EXAMINATION/TECHNIQUE: X-RAY - XR Chest 1 View COMPARISON: CT examination dated 11/30/2023 FINDINGS: LIFE-SUPPORT AND LINES: 1. Port-A-Cath projects in normal position. HEART AND VESSELS: The cardiac silhouette, pulmonary vasculature have normal appearance. No evidence of congestive failure. LUNGS AND PLEURAL SPACES: No focal infiltrate or airspace consolidation. There is a nodular appearance the RIGHT infrahilar region measuring 1.9 x 2.2 cm and corresponding to the previously documented pulmonary nodule/mass. MEDIASTINUM AND HILAR REGIONS: No masses adenopathy noted. No areas of calcification. Visualized upper airway is normal in position. BONY ELEMENTS: No acute bony changes noted. RAD/Chest 1 View (Portable) IMPRESSION: 1. Port-A-Cath projects in normal position. 2. Lobulated density in the RIGHT infrahilar region corresponding to the previous CT findings of a pulmonary mass. 3. No acute infiltrate or congestive failure. Electronically Signed: Alvin Charles MD at 19:54 EDT ,
[2024-02-17 19:18] LABS: Absolute Lymphocyte Count 0.97 X10^3/uL (0.83-4.51); Absolute Neutrophil Count 10.1 X10^3/uL (2.0-7.7); Basophil# 0.01 X10^3/uL; Basophil% 0.1 % (0-1); Eosinophil# 0.05 X10^3/uL; Eosinophils% 0.4 % (0-5); Hematocrit 41.5 % (37-47); Hemoglobin 13.2 g/dL (12.0-15.0); Lymphocyte # 0.97 X10^3/ul (0.83-4.51); Lymphocyte % 8.6 % (19-41); Mean Corp Hgb Conc 31.8 g/dL (32-36); Mean Corpuscular Hgb 32.1 pg (27.0-32.0); Mean Platelet Vol. 9.9 fl (6.2-12.0); Monocyte# 0.13 X10^3/uL; Monocyte% 1.2 % (0-10); NRBC Flagged by Analyzer 0 % (0-5); Neutrophil # 10.06 X10^3/uL (2.7-7.7); Neutrophil % 89.2 % (47-70); Platelet Count 271 K/mm3 (150-450); RBC Distribution Width CV 17.2 % (11.6-14.6); RBC Distribution Width SD 63.8 fl (35.1-43.9); Red Blood Count 4.11 M/mm3 (4.2-5.4); White Blood Count 11.3 K/mm3 (4.4-11.0)
[2024-02-17 19:28] LABS: ALB/GLOB Ratio 0.8 RATIO (0.9-2.4); AST(SGOT) 16 U/L (15-37); Alanine Aminotransfer ALT/SGPT 31 U/L (13-56); Albumin, Serum 2.7 g/dL (3.2-5.0); Alkaline Phosphatase 140 U/L (45-117); Anion Gap 7 (5-15); BUN 16 mg/dL (7-18); BUN/Creat Ratio 24.5 RATIO (10-20); Calcium,Total 9.1 mg/dL (8.5-10.1); Chloride 100 mmol/L (98-107); Creatinine, Serum 0.65 mg/dL (0.55-1.02); EST Glomerular Filtration Rate 95 mL/min (>60); Est Glom Filt Rate - Afr Amer 115 mL/min (>60); Globulin 3.6 g/dL (2.2-4.2); Glucose 447 mg/dL (74-106); Lipase 14 U/L (13-75); Potassium 3.3 mmol/L (3.5-5.1); Protein, Total 6.3 g/dL (6.4-8.2); Sodium Level 139 mmol/L (136-145)
--- NOTE | 2024-02-17 19:40 | EX.ED.DYSGE1 ---
HPI <KEVIN Palmer - Last Filed: 02/17/24 21:31> History of Present Illness Chief Complaint: Weakness Narrative Narrative: Patient is a 68-year-old female with history of stage IV lung cancer who still smokes cigarettes, hypertension hyperlipidemia diabetes who [facility] for ongoing abdominal pain, diarrhea, generalized weakness. Patient states that she had her last chemotherapy this last Monday, she gets it every 21 days. Patient states that she has been having infusions of potassium secondary to having low potassium. She states has been having diarrhea and having difficulty maintaining hydration. She denies any fever or chills however does feel weak and is here for evaluation. [facility] <KEVIN Palmer - Last Filed: 02/17/24 21:31> [facility] Medical History (Updated 02/17/24 @ 22:[address] Vijay Hernandez MD) Encounter for antineoplastic chemotherapy and immunotherapy Fatigue Claustrophobia Frequent falls Hypokalemia Headache Left-sided weakness Skin tear High cholesterol Restless legs Shortness of breath on exertion Heartburn Gastritis Hypertension History of stress test Cardiology follow-up encounter Postprandial vomiting Epigastric pain Acid reflux Hyperglycemia Encounter for chemotherapy management Vaginitis Thrush, oral Rash Insulin dependent diabetes mellitus Cancer Bilateral lower extremity edema Encounter for vitamin B12 injection while on pemetrexed chemotherapy Encounter for education Metastasis to lung Regional lymph node metastasis present Primary cancer of right lung Wears hearing aid Wears glasses Post-menopausal Anxiety Low iron Vertigo History of IBS Smoker Hoarseness Chronic cough History of non-ST elevation myocardial infarction (NSTEMI) (01/19/09) Essential (primary) hypertension Nicotine dependence Atherosclerosis of coronary artery without angina pectoris Diabetes mellitus type II, controlled Obesity (BMI 30-39.9) COPD (chronic obstructive pulmonary disease) HLD (hyperlipidemia) SVT (supraventricular tachycardia) Home Medications ?Medication ?Instructions ?Recorded ?Last Taken ?Type albuterol sulfate 90 mcg/actuation 2 puff inhalation Q4H PRN 07/22/21 12/18/23 History aerosol inhaler shortness of breath or wheezing vitamin E (dl, acetate) 180 mg 400 unit PO DAILY 07/22/21 Unknown History (400 unit) capsule nitroglycerin 0.4 mg sublingual 0.4 mg sublingual Q5M PRN chest 09/06/21 Unknown Rx tablet (Nitrostat) pain #25 tabs 5-hydroxytryptophan (5-HTP) 100 mg 100 mg PO DAILY 12/27/22 Unknown History capsule melatonin 300 mcg tablet 0.3 mg PO HS 12/27/22 Unknown History multivitamin 1 tab PO DAILY 12/27/22 Unknown History multivitamin with minerals 1 tab PO DAILY 12/27/22 Unknown History (Hair,Skin and Nails tablet) calcium carb-vit [id number] 1 tab PO DAILY 02/27/23 Unknown History 333 mg-200 unit-133 mg-5 mg tablet glimepiride 4 mg tablet 4 mg PO BID 02/27/23 Unknown History magnesium oxide 500 mg PO DAILY 02/27/23 Unknown History lidocaine-prilocaine 2.5 %-2.5 % 1 applic topical ONCE PRN port 04/20/23 Unknown Rx topical cream access 30 days #30 grams ondansetron 8 mg disintegrating 8 mg PO Q8H PRN nausea and 04/20/23 Unknown Rx tablet vomiting #30 tabs prochlorperazine maleate 10 mg 10 mg PO Q6H PRN nausea and 04/20/23 Unknown Rx tablet vomiting #30 tabs insulin lispro 100 unit/mL 1 sliding scale dose subcut TID 05/01/23 04/30/23 History subcutaneous pen folic acid 1 mg tablet 1 mg PO DAILY #30 tabs 08/03/23 Unknown Rx isosorbide mononitrate 30 mg 30 mg PO DAILY #90 tabs 08/08/23 Unknown Rx tablet,extended release 24 hr insulin glargine 100 unit/mL (3 30 unit subcut QPM 08/18/23 Unknown History mL) subcutaneous pen (Lantus Solostar U-100 Insulin) nystatin 100,000 unit/mL oral 1 ml buccal 4X/DAY 08/18/23 Unknown History suspension atorvastatin 80 mg tablet 80 mg PO QHS #90 tabs 09/10/23 Unknown Rx clopidogrel 75 mg tablet 75 mg PO DAILY #90 tabs 09/10/23 12/13/23 Rx lisinopril 10 mg tablet 10 mg PO DAILY #90 tabs 09/10/23 Unknown Rx metoprolol succinate 50 mg 50 mg PO DAILY #90 tabs 10/04/23 Unknown Rx tablet,extended release 24 hr Disability Placard #1 ea 10/26/23 Unknown Rx oxycodone 5 mg tablet 5 mg PO TID 12/12/23 12/18/23 History cetirizine 10 mg tablet 10 mg PO DAILY PRN allergy 01/06/24 Unknown Rx symptoms #30 tabs omeprazole 40 mg capsule,delayed 40 mg PO DAILY #60 caps 01/18/24 Unknown Rx release potassium chloride 20 mEq 20 meq PO BID #10 tabs 01/23/24 Unknown Rx tablet,extended release(part/cryst) dexamethasone 4 mg tablet 4 mg PO .COMPLEX #30 tabs 02/13/24 Unknown Rx lorazepam 1 mg tablet 1 mg PO QDAY PRN 45 min prior to 02/13/24 Unknown Rx MRI #1 TAB potassium chloride 20 mEq 20 meq PO BID #14 tabs 02/13/24 Unknown Rx tablet,extended release(part/cryst) misoprostol 100 mcg tablet 100 mcg sublingual Q8 #21 tabs 02/17/24 Unknown Rx Allergy/AdvReac Type Severity Reaction Status Date / Time bupropion (From Wellbutrin) Allergy Severe Rash Verified 02/17/24 18:29 cephalexin Allergy Hives Verified 02/17/24 18:29 Fish Containing Products Allergy Anaphylaxis Verified 02/17/24 18:29 Penicillins Allergy Anaphylaxis Verified 02/17/24 18:29 venom-honey bee (bee venom Allergy Shortness Verified 02/17/24 18:29 (honey bee)) of breath sulfadiazine AdvReac Severe Unknown Verified 02/17/24 18:29 Sulfa (Sulfonamide AdvReac Intermediate Pain in Verified 02/17/24 18:29 Antibiotics) joints metformin AdvReac Diarrhea Verified 02/17/24 18:29 Family History Father Diabetes Hypertension CAD (coronary artery disease) Hx CABG Myocardial infarction, Onset Age: 63 Cancer, Onset Age: 77 Mother , from aneurysm at age 40 CVA (cerebral vascular accident) Daughter CAD (coronary artery disease) Brother Cancer Surgical History History of bronchoscopy History of lung biopsy History of toe surgery History of cardiac catheterization History of appendectomy (~02/2021) History of colonoscopy (~2014) History of coronary artery stent placement (01/19/09) History of bilateral carpal tunnel release History of hysterectomy History of left heart catheterization (11/25/15) Social History Smoking Status: Heavy Smoker (>10/day) alcohol intake: never substance use type: does not use caffeine: Yes Type: coffee what type of physical activity do you participate in: none seatbelt use: always do you feel safe at home: Yes ROS <KEVIN Palmer - Last Filed: 02/17/24 21:31> ROS ED ROS Narrative Constitutional: Negative for fever, chills, weight loss. Positive for weakness Eyes: Negative for vision loss, vision change, double vision ENT: Negative for any sore throat, ear pain, congestion Cardiovascular: Negative for any chest pain, tightness, palpitations Respiratory: Negative for any cough, sputum production, hemoptysis, dyspnea, dyspnea on exertion, orthopnea Gastrointestinal: Negative for any vomiting, constipation, blood in stool, blood in vomit. Positive for abdominal pain, nausea, positive for diarrhea : Negative for any urinary frequency, dysuria, retention, blood in urine Muscle skeletal: Negative for any neck pain, back pain Neurological: Negative for any headache, syncope, dizziness Skin: Negative for any rashes, itching, abrasions, lacerations Psychiatric: Negative for any depression, anxiety, stress, suicidal ideation, homicidal ideation Hematologic: Negative for any excessive bruising, easy bleeding EXAM <KEVIN Palmer - Last Filed: 02/17/24 21:31> Physical Exam Narrative Exam Narrative: Vital signs reviewed. Patient appears to be in slight discomfort however patient is no obvious distress. HEET: Head normocephalic atraumatic, TMs clear bilaterally. Posterior pharynx is clear, dry mucous membranes. Nares clear bilaterally. Neck: Supple with no lymphadenopathy or tenderness. No signs of meningismus. Cardiac: Regular rate and rhythm no murmurs gallops or rubs, equal peripheral pulses bilaterally. Respiratory: Lungs clear to auscultation bilaterally. No chest tenderness. Abdomen: Soft, nontender, nondistended. No abdominal bruit or pulsatile masses. No hepatosplenomegaly Extremities: No peripheral edema, no signs of gross trauma or deformity. Active full range of motion of all extremities. Neuro: Cranial nerves II through XII intact, no focal neurological deficits. Skin: Clean dry and intact with no rash, purpura, petechiae, vesicles or pustules. Backs/flank: No CVA tenderness, no midline spinal tenderness, no deformity. Psych: Normal mood and affect. No SI, HI or acute psychosis. Const Vital Signs: 02/17/24 18:25 02/17/24 18:28 02/17/24 20:25 Temperature 97.9 F 97.9 F Temperature Source Oral Oral Pulse Rate 102 H 102 H 100 Respiratory Rate 21 H 21 H 20 H Blood Pressure 91/56 L 91/56 L 118/73 Blood Pressure Mean 67 67 88 Pulse Ox 93 93 6 Oxygen Delivery Method Room Air Room Air Room Air 02/17/24 22:00 Temperature Temperature Source Pulse Rate 96 Respiratory Rate 25 H Blood Pressure 103/52 L Blood Pressure Mean 69 Pulse Ox 95 Oxygen Delivery Method Room Air <Dr. Vijay Hernandez MD - Last Filed: 02/17/24 22:19> Physical Exam Const Vital Signs: 02/17/24 18:25 02/17/24 18:28 02/17/24 20:25 Temperature 97.9 F 97.9 F Temperature Source Oral Oral Pulse Rate 102 H 102 H 100 Respiratory Rate 21 H 21 H 20 H Blood Pressure 91/56 L 91/56 L 118/73 Blood Pressure Mean 67 67 88 Pulse Ox 93 93 6 Oxygen Delivery Method Room Air Room Air Room Air 02/17/24 22:00 Temperature Temperature Source Pulse Rate 96 Respiratory Rate 25 H Blood Pressure 103/52 L Blood Pressure Mean 69 Pulse Ox 95 Oxygen Delivery Method Room Air MDM <KEVIN Palmer - Last Filed: 02/17/24 21:31> [facility] Lab Data Labs: Laboratory Results - last 24 hr 02/17/24 02/17/24 19:02 20:25 WBC 11.3 H RBC 4.11 L Hgb 13.2 Hct 41.5 MCV 101.0 H MCH 32.1 H MCHC 31.8 L RDW Std Deviation 63.8 H RDW Coeff of Hang 17.2 H Plt Count 271 MPV 9.9 Immature Gran % (Auto) 0.500 Neut % (Auto) 89.2 H Lymph % (Auto) 8.6 L [place] % (Auto) 1.2 Eos % (Auto) 0.4 Baso % (Auto) 0.1 Absolute Neuts (auto) 10.1 H Absolute Lymphs (auto) 0.97 Nucleated RBC % 0 Sodium 139 Potassium 3.3 L Chloride 100 Carbon Dioxide 32.0 Anion Gap 7 BUN 16 Creatinine 0.65 Estim Creat Clear Calc 61.40 Est GFR (MDRD) Af Amer 115 Est GFR (MDRD) Non-Af 95 BUN/Creatinine Ratio 24.5 H Glucose 447 H Lactic Acid 1.2 Calcium 9.1 Magnesium 2.0 Total Bilirubin 1.20 H AST 16 ALT 31 Alkaline Phosphatase 140 H Total Protein 6.3 L Albumin 2.7 L Globulin 3.6 Albumin/Globulin Ratio 0.8 L Lipase 14 Urine Color Yellow Urine Clarity Clear Urine pH 8.0 Ur Specific [place] 1.010 Urine Protein 15 H Urine Glucose (UA) 1000 H Urine Ketones Negative Urine Occult Blood Negative Urine Nitrite Positive H Urine Bilirubin Negative Urine Urobilinogen Normal Ur Leukocyte Esterase 25 H Urine RBC 0 SEEN Urine WBC 0 SEEN Ur Squamous Epith Cells 0-5 SEEN Urine Bacteria 3+ Urine Mucus 0 SEEN Radiography Diagnostic Testing: Clinical Impression(s) from Imaging Studies Chest X-Ray 02/17/24 19:10 IMPRESSION: 1. Port-A-Cath projects in normal position. 2. Lobulated density in the RIGHT infrahilar region corresponding to the previous CT findings of a pulmonary mass. 3. No acute infiltrate or congestive failure. Electronically Signed: Alvin Charles MD at 19:54 EDT , EKG EKG shows a normal sinus rhythm: Attestation: I personally reviewed and interpreted this EKG as follows: Interpretation: Sinus Rhythm Comments: Normal sinus rhythm, rate of 100 bpm, RI interval 160 ms, QRS duration 74 ms, no acute ST elevation, no acute infarct noted. Treatment and Re-Evaluation :: Differential diagnosis includes however is not limited to: Electrolyte abnormality, dehydration, sequelae of metastasis of cancer, hypokalemia, hypomagnesia, Patient appears to be in no obvious respiratory distress, patient's vital signs are stable. Patient presents to the [facility] apartment for ongoing abdominal pain, nausea, diarrhea, concern for weakness. Patient will receive basic laboratory values, patient was seen by IV fluids, a magnesium level will also be ordered. Patient given IV Zofran and morphine. All radiologic examinations were read, reviewed by the emergency department attending. From these reads, a plan of care will be put in place. Patient's chest x-ray shows Port-A-Cath projects in normal position. Lobulated density in the right infra hilar region corresponding to the previous CT findings of a pulmonary mass. No acute infiltrate or congestive failure. Patient's laboratory values show slight leukocytosis with a white blood count of 11.3, hemoglobin is stable at 13, patient's chemistries show sodium 139 which is normal, patient's potassium is 3.3, this is similar to 2 days ago. Patient's blood glucose is slight elevated 4-47, alkaline phos Ly elevated 140 this is baseline. Lipase is negative. Patient after 1 L of normal saline, 4 mg of morphine did have relief. Patient did have a another pain episode and was given another dose of morphine. Urinalysis showed 3+ bacteria have there is no white blood cells, 25 leukocyte esterase, this to be sent for culture. Patient does have significant diarrhea. We are currently talking with the PCP as well as oncology for further evaluation for the patient. <Dr. Vijay Hernandez MD - Last Filed: 02/17/24 22:19> [facility] MDM Narrative Medical decision making narrative: I have personally performed a face to face assessment of the patient and have reviewed the LUANN Note. I performed a substantive portion of the visit including all aspects of the following. My monae findings include: History is chronic diffuse abdominal pain for the past 6 months or more, actively being treated with chemotherapy for lung cancer following with [place] [facility], now pain worse since 3 days ago along with acute diarrhea no blood or melena, and increased weakness. 3 total episodes of diarrhea today, all more than 12 hrs ago, started after she drank Senna tea due to being constipated. Patient family concerned that she has been having all of this pain associated with peptic ulcer disease and/or gastritis for the past 6 months or more and it does not seem to be addressed by the physician she is seeing. She states she is losing weight because she cannot eat because when she does it hurts her abdomen more and this has been going on for months. Family also concerned about her accelerating weight loss. Exam is keenly alert and oriented x 3 no distress. Abdomen soft, benign, with subjective tenderness in epigastrium. Bowel sounds present. Lungs clear, heart regular no tachycardia. Medical Decison Making Labs, IV fluids, reevaluate and discussed with oncology and primary care. Chronic issues. Family states palliative care discussions have started. There have been no discussions about feeding tubes. Chest x-ray 1 view on my interpretation negative for acute pneumonia. Feeling better after analgesics. Discussed with PCP and oncology see below. Extensive discussion with patient and family. Other additions or changes: Old records reviewed. EGD in December shows mild multifocal gastritis with bleeding, no peptic ulcer disease, pathology negative and biopsies negative for H. pylori. Oncology visit 4 days ago mentions her upper abdominal discomfort and desire to add oral contrast to her next CT chest/abdomen/pelvis which is due to occur in 2 or 3 weeks from now. Lab Data Labs: Laboratory Results - last 24 hr 02/17/24 02/17/24 19:02 20:25 WBC 11.3 H RBC 4.11 L Hgb 13.2 Hct 41.5 MCV 101.0 H MCH 32.1 H MCHC 31.8 L RDW Std Deviation 63.8 H RDW Coeff of Hang 17.2 H Plt Count 271 MPV 9.9 Immature Gran % (Auto) 0.500 Neut % (Auto) 89.2 H Lymph % (Auto) 8.6 L [place] % (Auto) 1.2 Eos % (Auto) 0.4 Baso % (Auto) 0.1 Absolute Neuts (auto) 10.1 H Absolute Lymphs (auto) 0.97 Nucleated RBC % 0 Sodium 139 Potassium 3.3 L Chloride 100 Carbon Dioxide 32.0 Anion Gap 7 BUN 16 Creatinine 0.65 Estim Creat Clear Calc 61.40 Est GFR (MDRD) Af Amer 115 Est GFR (MDRD) Non-Af 95 BUN/Creatinine Ratio 24.5 H Glucose 447 H Lactic Acid 1.2 Calcium 9.1 Magnesium 2.0 Total Bilirubin 1.20 H AST 16 ALT 31 Alkaline Phosphatase 140 H Total Protein 6.3 L Albumin 2.7 L Globulin 3.6 Albumin/Globulin Ratio 0.8 L Lipase 14 Urine Color Yellow Urine Clarity Clear Urine pH 8.0 Ur Specific [place] 1.010 Urine Protein 15 H Urine Glucose (UA) 1000 H Urine Ketones Negative Urine Occult Blood Negative Urine Nitrite Positive H Urine Bilirubin Negative Urine Urobilinogen Normal Ur Leukocyte Esterase 25 H Urine RBC 0 SEEN Urine WBC 0 SEEN Ur Squamous Epith Cells 0-5 SEEN Urine Bacteria 3+ Urine Mucus 0 SEEN Radiography Diagnostic Testing: Clinical Impression(s) from Imaging Studies Chest X-Ray 02/17/24 19:10 IMPRESSION: 1. Port-A-Cath projects in normal position. 2. Lobulated density in the RIGHT infrahilar region corresponding to the previous CT findings of a pulmonary mass. 3. No acute infiltrate or congestive failure. Electronically Signed: Alvin Charles MD at 19:54 EDT , Management Discussion w/another healthcare provider: Customer Service Sales Associate (Oncology Dr. Champagne - no need to admit for feeding tube eval; recommends decadraon 10mg, close outpt f/u) and PCP (Dr. Vann on-call for Dr. Alvarez; if discharge recommends misoprostol and Tums 3 times daily) Discharge Plan Triage Chief Complaint: Weakness ED Provider: Vijay Hernandez Dx/Rx/DC Orders Clinical Impression: Abdominal pain, Diarrhea, Lung cancer, Gastritis Instructions: ED Diarrhea, Unknown Cause, ED GERD (Adult) Prescriptions: New misoprostol 100 mcg tablet 100 mcg sublingual Q8 Qty: 21 0RF No Action vitamin E (dl, acetate) 180 mg (400 unit) capsule 400 unit PO DAILY albuterol sulfate 90 mcg/actuation HFA aerosol inhaler 2 puff inhalation Q4H PRN (Reason: shortness of breath or wheezing) Patient Comments: inhale two puffs FOUR TIMES DAILY NEEDED nitroglycerin [Nitrostat] 0.4 mg tablet, sublingual 0.4 mg SUBLINGUAL Q5M PRN (Reason: chest pain) Qty: 25 3RF melatonin 300 mcg tablet 0.3 mg PO HS 5-hydroxytryptophan (5-HTP) 100 mg capsule 100 mg PO DAILY multivitamin Tablet 1 tab PO DAILY Hair,Skin and Nails Tablet 1 tab PO DAILY magnesium oxide 500 mg tablet 500 mg PO DAILY glimepiride 4 mg tablet 4 mg PO BID Patient Comments: Take 1 (one) Tablet by mouth two times daily calcium carb-D3-mag [id number] [phone] zo-enzo-td-mg tablet 1 tab PO DAILY Rx Instructions: administer with a meal nystatin 100,000 unit/mL suspension 1 ml buccal 4X/DAY Rx Instructions: administer 1/2 of dose in each side of the mouth lidocaine-prilocaine 2.5-2.5 % cream 1 applic topical ONCE PRN (Reason: port access) 30 Days Qty: 30 2RF ondansetron 8 mg tablet,disintegrating 8 mg PO Q8H PRN (Reason: nausea and vomiting) Qty: 30 2RF prochlorperazine maleate 10 mg tablet 10 mg PO Q6H PRN (Reason: nausea and vomiting) Qty: 30 2RF folic acid 1 mg tablet 1 mg PO DAILY Qty: 30 2RF (DME) Disability Placard See Rx Instructions .Route .MEDSUPPLY Qty: 1 0RF Rx Instructions: Lifetime; no expiration potassium chloride 20 mEq tablet,ER particles/crystals 20 meq PO BID Qty: 10 0RF cetirizine 10 mg tablet 10 mg PO DAILY PRN (Reason: allergy symptoms) Qty: 30 0RF dexamethasone 4 mg tablet 4 mg PO .COMPLEX Qty: 30 0RF Rx Instructions: 4 mg orally ONLY the night before chemotherapy and the morning of chemotherapy; lorazepam 1 mg tablet 1 mg PO QDAY PRN (Reason: 45 min prior to MRI ) Qty: 1 0RF potassium chloride 20 mEq tablet,ER particles/crystals 20 meq PO BID Qty: 14 0RF insulin lispro 100 unit/mL insulin pen 1 sliding scale dose SUBCUT TID insulin glargine [Lantus Solostar U-100 Insulin] 100 unit/mL (3 mL) insulin pen 30 unit subcut QPM Rx Instructions: sliding scate oxycodone 5 mg tablet 5 mg PO TID isosorbide mononitrate 30 mg tablet extended release 24 hr 30 mg PO DAILY Qty: 90 3RF atorvastatin 80 mg tablet 80 mg PO QHS Qty: 90 3RF clopidogrel 75 mg tablet 75 mg PO DAILY Qty: 90 3RF lisinopril 10 mg tablet 10 mg PO DAILY Qty: 90 3RF metoprolol succinate 50 mg tablet extended release 24 hr 50 mg PO DAILY Qty: 90 3RF omeprazole 40 mg capsule,delayed release(DR/EC) 40 mg PO DAILY Qty: 60 2RF Primary Care Provider: Eduardo Alvarez Referrals: Eduardo Alvarez MD [Primary Care Provider] - Activity Restrictions/Additional Instructions: You are going to take the misoprostol 3 times a day for a week, you will accompany these with 2 Tums tablets. You will need to follow-up outpatient. Both with your oncologist as well as your PCP. Maintain hydration. Print Language: Lao Disposition Disposition: Home, Self Care
[2024-02-17 19:49] LABS: Lactic Acid 1.2 mmol/L (0.4-1.9)
[2024-02-17 20:25] VITALS: BP 118/73; PULSE 100; RESP 20; O2SAT 6
[2024-02-17 20:42] LABS: Mucous, Urine 0 SEEN /hpf (<or=2+); Red Blood Cells-Urine 0 SEEN /hpf (0-5); White Blood Cells 0 SEEN /hpf (0-5)
[2024-02-17 20:54] LABS: Color, Urine Yellow (Yellow); Glucose, Dipstick 1000 mg/dl (Normal); Ketone-Dipstick Negative (Negative); Leukocyte Esterase-Dipstick 25 /ul (Negative); Nitrite-Dipstick Positive (Negative); Occult Blood-Urine Negative /ul (Negative); Protein-Dipstick 15 mg/dl (Negative); Urine Bilirubin Dipstick Negative (Negative); Urine Clarity Clear (Clear); Urine Urobilinogen Normal (Normal)
[2024-02-17 21:08] LABS: Bacteria 3+ /hpf (None Seen); Squamous Epithelial Cells - UA 0-5 SEEN /hpf (5-10)
[2024-02-17] MEDS: dexAMETHasone 10 MG/ML Vial IV (21:57)
[2024-02-17 22:00] VITALS: BP 103/52; PULSE 96; RESP 25; O2SAT 95
[2024-02-17 22:59] VITALS: BP 106/50; PULSE 99; RESP 18; TEMP 36.1; O2SAT 96
== END 2024-02-17 23:00 | disposition home or self-care (01) ==
PROVIDERS: Nurse Practitioner; Emergency Provider Emergency Medicine; PCP Family Medicine; Visit Provider Emergency Medicine
DX: R10.84 Generalized abdominal pain (principal); C34.91 Malignant neoplasm of unspecified part of right bronchus or lung; J44.9 Chronic obstructive pulmonary disease, unspecified; E11.9 Type 2 diabetes mellitus without complications; Z79.4 Long term (current) use of insulin; R19.7 Diarrhea, unspecified; K29.70 Gastritis, unspecified, without bleeding; E87.6 Hypokalemia; R82.71 Bacteriuria; B96.89 Other specified bacterial agents as the cause of diseases classified elsewhere; Z88.8 Allergy status to other drugs, medicaments and biological substances; Z88.2 Allergy status to sulfonamides; Z88.0 Allergy status to penicillin; Z88.1 Allergy status to other antibiotic agents; Z95.5 Presence of coronary angioplasty implant and graft; F17.210 Nicotine dependence, cigarettes, uncomplicated; E78.00 Pure hypercholesterolemia, unspecified; Z87.19 Personal history of other diseases of the digestive system; I10 Essential (primary) hypertension; I25.2 Old myocardial infarction; I25.10 Atherosclerotic heart disease of native coronary artery without angina pectoris; K21.9 Gastro-esophageal reflux disease without esophagitis; Z79.02 Long term (current) use of antithrombotics/antiplatelets; Z79.84 Long term (current) use of oral hypoglycemic drugs; Z79.899 Other long term (current) drug therapy; Z95.828 Presence of other vascular implants and grafts
CPT/HCPCS: 71045; 80053; 81001; 83605; 83690; 83735; 85025; 87077; 87086; 87088; 87186; 93005; 96361; 96374; 96375; 96376; 99282; J7030; A4216; J2405

== ENCOUNTER → 2024-02-28 | Outpatient (CLI) | payer MEDICARE, SELFPAY ==
--- NOTE | 2024-02-28 14:51 | CT_ITS ---
STUDY: CT CHEST T ABDOMEN WITH CONTRAST REASON FOR EXAM: Female, 68 years old. mNSCLC; assess response to treatment RADIATION DOSAGE (If Supplied By Facility): CTDIvol = ( 13.59 ) mGy, DLP = ( 921.76 ) mGycm TECHNIQUE: Transaxial imaging was performed following intravenous administration of Oral and amp; IV Readi-CAT and amp; 100mL Isovue-300. Multiplanar coronal and sagittal images were reformatted. Individualized dose optimization techniques were used for this CT. COMPARISON: Comparison is made with prior study dated November 30, 2023. FINDINGS: CHEST A right-sided Port-A-Cath is once again seen with the tip in the superior vena cava. Small benign-appearing bilateral axillary lymph nodes. Since prior study, the nodular density in the anterior medial aspect of the right upper lobe has increased in size. It presently measures 3.3 cm x 1.3 cm. Stable appearance of the 7 mm nodule in the medial aspect of the left upper lobe. There is no demonstrated pleural abnormality. There are calcifications of the coronary arteries. Since prior study, there has been progression of the mediastinal lymphadenopathy more pronounced in the subcarinal region. Slight increase in the bilateral hilar lymphadenopathy as well. Normal unenhanced pulmonary arteries. Normal aorta arch and descending thoracic aorta. There are multi-level degenerative changes of the thoracic spine. ABDOMEN Normal liver. Normal gallbladder and extrahepatic biliary system. Normal spleen. Normal pancreas. Normal bilateral adrenal glands. Normal right kidney. Normal left kidney. Normal visualized stomach. Normal small intestine. Normal colon. The appendix is visualized and appears normal. There is diffuse atherosclerotic calcification of the abdominal aorta, without a demonstrated aneurysm. Normal inferior vena cava. Normal retroperitoneum. Normal abdominal wall. There are degenerative changes of the visualized lumbar spine. CT/CT Chest AND Abd W/ Contrast IMPRESSION: Progressive increase in size of the nodular density in the right upper lobe as well as progression of the mediastinal and bilateral hilar lymph nodes. Electronically Signed: Chacorta Whitt MD at 11:49 EDT ,
[2024-02-28] MEDS: 0.9% Saline Lock 10 ML Syringe IV (15:24)
== END | disposition home or self-care (01) ==
LOC: CT 14:49
PROVIDERS: PCP Family Medicine; Referring Provider Internal Medicine Hematology & Oncology; Visit Provider Internal Medicine Hematology & Oncology
DX: C34.91 Malignant neoplasm of unspecified part of right bronchus or lung (principal); C78.02 Secondary malignant neoplasm of left lung; C77.9 Secondary and unspecified malignant neoplasm of lymph node, unspecified
CPT/HCPCS: 71260; 74160; A4216

== ENCOUNTER 2024-04-03 13:48 | Inpatient (IN) | payer MEDICARE, SELFPAY ==
[2024-04-03] VITALS (9 sets, daily range): BP systolic 101–139; BP diastolic 51–81; PULSE 89–98; RESP 16–22; TEMP 36.8–37.2; O2SAT 93–98; BMI 28.5
--- NOTE | 2024-04-03 14:56 | EKG12_ITS ---
Test Reason : SOB Blood Pressure : */* mmHG Vent. Rate : 90 BPM Atrial Rate : 90 BPM P-R Int : 148 ms QRS Dur : 76 ms QT Int : 380 ms P-R-T Axes : 16 67 31 degrees QTcB Int : 464 ms Sinus rhythm with frequent Premature ventricular complexes Otherwise normal ECG Confirmed by MARGARETH SANCHEZ, SUE ([id number]), content editor GREGG COLINDRES ([id number]) on 04/05/2024 8:15:27 AM Referred By: Confirmed By: SUE ZULUAGA MD
--- NOTE | 2024-04-03 15:19 | RAD_ITS ---
STUDY: X-RAY CHEST REASON FOR EXAM: Female, 68 years old. Cough and shortness of breath. TECHNIQUE: Single AP portable view of the chest. COMPARISON: Comparison is made with prior study February 17, 2024. FINDINGS: A right-sided Port-A-Cath is seen with the tip at the junction of the superior vena cava and right atrium. EKG electrodes are seen. Vascular congestion and mild CHF. Increase in size of the right infrahilar nodule with right basilar atelectasis. Blunting of the right costophrenic angle. Normal size heart. Normal mediastinum and zheng. Normal visualized pulmonary arteries. There is atherosclerotic calcification of the aortic arch with tortuosity. Normal visualized thoracic spine. Normal visualized ribs, clavicles, and shoulders. There is no demonstrated abnormality of the visualized soft tissue structures of the upper abdomen. RAD/Chest 1 View (Portable) IMPRESSION: Vascular congestion mild CHF. Right basilar atelectasis with blunting of the right costo phrenic angle. Enlargement of the right infrahilar nodule. Electronically Signed: Chacorta Whitt MD at 15:40 EDT ,
[2024-04-03] MEDS: Ipratropium/Albuterol Sulfate 3 ML AMPUL.NEB INHALATION (15:27)
[2024-04-03 15:34] LABS: Absolute Lymphocyte Count 0.56 X10^3/uL (0.83-4.51); Absolute Neutrophil Count 9.9 X10^3/uL (2.0-7.7); Basophil# 0.02 X10^3/uL; Basophil% 0.2 % (0-1); Eosinophil# 0.04 X10^3/uL; Eosinophils% 0.4 % (0-5); Hematocrit 38.6 % (37-47); Hemoglobin 11.7 g/dL (12.0-15.0); Lymphocyte # 0.56 X10^3/ul (0.83-4.51); Lymphocyte % 4.9 % (19-41); Mean Corp Hgb Conc 30.3 g/dL (32-36); Mean Corpuscular Hgb 32.1 pg (27.0-32.0); Mean Platelet Vol. 10.8 fl (6.2-12.0); Monocyte% 6.2 % (0-10); NRBC Flagged by Analyzer 0.5 % (0-5); Neutrophil # 9.89 X10^3/uL (2.7-7.7); Neutrophil % 86.9 % (47-70); POSITIVE DIFFERENTIAL YES; POSITIVE MORPHOLOGY YES; Platelet Count 237 K/mm3 (150-450); RBC Distribution Width CV 17.3 % (11.6-14.6); RBC Distribution Width SD 68.2 fl (35.1-43.9); Red Blood Count 3.64 M/mm3 (4.2-5.4); White Blood Count 11.4 K/mm3 (4.4-11.0)
[2024-04-03 15:42] LABS: Differential Indicated SCAN CRITERIA MET
--- NOTE | 2024-04-03 15:46 | EDS_ITS ---
HPI History of Present Illness Chief Complaint: Shortness of Breath Informant: patient and family Narrative Narrative: Patient presents by EMS from home daughters present. Hospice nurse Chester is present. Patient established with hospice 12 days ago after discontinuing chemo for history of non-small lung cancer both sides. She has COPD history and current tobacco use, on baseline 2 and half liters oxygen. Per daughter since being home last 3 days had vomiting and choking episodes. Increasing dyspnea increasing her oxygenation to 5 L. She feels short of breath. She is a diabetic. Yesterday had temp with hospice nurse of 92 was given warming blankets today temperature back to normal. However concerns dyspnea is worsening. No fevers or chills. She is full code with hospice. Anaphylaxis to penicillin. Currently denies any nausea. [facility] Medical History Encounter for antineoplastic chemotherapy and immunotherapy Fatigue Claustrophobia Frequent falls Hypokalemia Headache Left-sided weakness Skin tear High cholesterol Restless legs Shortness of breath on exertion Heartburn Gastritis Hypertension History of stress test Cardiology follow-up encounter Postprandial vomiting Epigastric pain Acid reflux Hyperglycemia Encounter for chemotherapy management Vaginitis Thrush, oral Rash Insulin dependent diabetes mellitus Cancer Bilateral lower extremity edema Encounter for vitamin B12 injection while on pemetrexed chemotherapy Encounter for education Metastasis to lung Regional lymph node metastasis present Primary cancer of right lung Wears hearing aid Wears glasses Post-menopausal Anxiety Low iron Vertigo History of IBS Smoker Hoarseness Chronic cough History of non-ST elevation myocardial infarction (NSTEMI) (01/19/09) Essential (primary) hypertension Nicotine dependence Atherosclerosis of coronary artery without angina pectoris Diabetes mellitus type II, controlled Obesity (BMI 30-39.9) COPD (chronic obstructive pulmonary disease) HLD (hyperlipidemia) SVT (supraventricular tachycardia) Home Medications ?Medication ?Instructions ?Recorded ?Last Taken ?Type albuterol sulfate 90 mcg/actuation 2 puff inhalation Q4H PRN 07/22/21 12/18/23 History aerosol inhaler shortness of breath or wheezing vitamin E (dl, acetate) 180 mg 400 unit PO DAILY 07/22/21 Unknown History (400 unit) capsule 5-hydroxytryptophan (5-HTP) 100 mg 100 mg PO DAILY 12/27/22 Unknown History capsule melatonin 300 mcg tablet 0.3 mg PO HS 12/27/22 Unknown History multivitamin 1 tab PO DAILY 12/27/22 Unknown History multivitamin with minerals 1 tab PO DAILY 12/27/22 Unknown History (Hair,Skin and Nails tablet) calcium 333 mg-vit D3 200 1 tab PO DAILY 02/27/23 Unknown History unit-magnesium 133 mg-zinc 5 mg tablet glimepiride 4 mg tablet 4 mg PO BID 02/27/23 Unknown History magnesium oxide 500 mg PO DAILY 02/27/23 Unknown History lidocaine-prilocaine 2.5 %-2.5 % 1 applic topical ONCE PRN port 04/20/23 Unknown Rx topical cream access 30 days #30 grams ondansetron 8 mg disintegrating 8 mg PO Q8H PRN nausea and 04/20/23 Unknown Rx tablet vomiting #30 tabs prochlorperazine maleate 10 mg 10 mg PO Q6H PRN nausea and 04/20/23 Unknown Rx tablet vomiting #30 tabs insulin lispro 100 unit/mL 1 sliding scale dose subcut TID 05/01/23 04/30/23 History subcutaneous pen folic acid 1 mg tablet 1 mg PO DAILY #30 tabs 08/03/23 Unknown Rx isosorbide mononitrate 30 mg 30 mg PO DAILY #90 tabs 08/08/23 Unknown Rx tablet,extended release 24 hr insulin glargine 100 unit/mL (3 30 unit subcut QPM 08/18/23 Unknown History mL) subcutaneous pen (Lantus Solostar U-100 Insulin) nystatin 100,000 unit/mL oral 1 ml buccal 4X/DAY 08/18/23 Unknown History suspension atorvastatin 80 mg tablet 80 mg PO QHS #90 tabs 09/10/23 Unknown Rx clopidogrel 75 mg tablet 75 mg PO DAILY #90 tabs 09/10/23 12/13/23 Rx lisinopril 10 mg tablet 10 mg PO DAILY #90 tabs 09/10/23 Unknown Rx metoprolol succinate 50 mg 50 mg PO DAILY #90 tabs 10/04/23 Unknown Rx tablet,extended release 24 hr Disability Placard #1 ea 10/26/23 Unknown Rx oxycodone 5 mg tablet 5 mg PO TID 12/12/23 12/18/23 History cetirizine 10 mg tablet 10 mg PO DAILY PRN allergy 01/06/24 Unknown Rx symptoms #30 tabs omeprazole 40 mg capsule,delayed 40 mg PO DAILY #60 caps 01/18/24 Unknown Rx release dexamethasone 4 mg tablet 4 mg PO .COMPLEX #30 tabs 02/13/24 Unknown Rx potassium chloride 20 mEq 20 meq PO QDAY #30 tabs 02/27/24 Unknown Rx tablet,extended release(part/cryst) nitroglycerin 0.4 mg sublingual 0.4 mg sublingual Q5M PRN chest 03/07/24 Unknown Rx tablet (Nitrostat) pain #25 tabs acetaminophen 500 mg tablet 500 mg PO Q6H PRN pain 04/03/24 Unknown History ciprofloxacin HCl 250 mg tablet 250 mg PO Q12.TCU 04/03/24 Unknown History diclofenac sodium 1 % topical gel topical 04/03/24 Unknown History (Arthritis Pain (diclofenac)) lorazepam 1 mg tablet 0.5 mg PO QDAY PRN 45 min prior to 04/03/24 Unknown History MRI sennosides 8.6 mg-docusate sodium 1 tab PO BID PRN PRN constipation 04/03/24 Unknown History 50 mg tablet (Stimulant Laxative Plus) Allergy/AdvReac Type Severity Reaction Status Date / Time bupropion (From Wellbutrin) Allergy Severe Rash Verified 03/11/24 15:07 cephalexin Allergy Hives Verified 03/11/24 15:07 Fish Containing Products Allergy Anaphylaxis Verified 03/11/24 15:07 Penicillins Allergy Anaphylaxis Verified 03/11/24 15:07 venom-honey bee (bee venom Allergy Shortness Verified 03/11/24 15:07 (honey bee)) of breath sulfadiazine AdvReac Severe Unknown Verified 03/11/24 15:07 Sulfa (Sulfonamide AdvReac Intermediate Pain in Verified 03/11/24 15:07 Antibiotics) joints metformin AdvReac Diarrhea Verified 03/11/24 15:07 Family History Father Diabetes Hypertension CAD (coronary artery disease) Hx CABG Myocardial infarction, Onset Age: 63 Cancer, Onset Age: 77 Mother , from aneurysm at age 40 CVA (cerebral vascular accident) Daughter CAD (coronary artery disease) Brother Cancer Surgical History History of bronchoscopy History of lung biopsy History of toe surgery History of cardiac catheterization History of appendectomy (~02/2021) History of colonoscopy (~2014) History of coronary artery stent placement (01/19/09) History of bilateral carpal tunnel release History of hysterectomy History of left heart catheterization (11/25/15) Social History Smoking Status: Heavy Smoker (>10/day) alcohol intake: never substance use type: does not use caffeine: Yes Type: coffee what type of physical activity do you participate in: none seatbelt use: always do you feel safe at home: Yes ROS ROS ED Constitutional Constitutional ED: Denies chills, fever(s) or sweats Eyes Eyes: Denies change in vision ENT ENT ED: Denies dysphagia or sore throat Cardiovascular Cardiovascular: Denies chest pain, leg edema, palpitations or racing heartbeat Respiratory/Chest Respiratory/Chest: Reports cough and dyspnea; Denies dyspnea on exertion Gastrointestinal Gastrointestinal: Reports nausea and vomiting; Denies abdominal pain or diarrhea Genitourinary Genitourinary ED: Denies dysuria, hematuria or urinary frequency Musculoskeletal Musculoskeletal: Denies back pain, extremity pain or neck pain Integumentary Denies rash or wounds Neurologic Neurologic: Denies headache(s), paresthesias or weakness EXAM Physical Exam Const Vital Signs: 04/03/24 13:52 04/03/24 13:56 04/03/24 14:56 Temperature 98.3 F Temperature Source Oral Pulse Rate 95 Respiratory Rate 16 Respiratory Effort Short of Breath Respiratory Pattern Tachypnea Blood Pressure 128/78 H Blood Pressure Mean 94 Pulse Ox 97 Oxygen Delivery Method Nasal Cannula Nasal Cannula Nasal Cannula Oxygen Flow Rate (L/min) 4 4 4 04/03/24 15:34 04/03/24 15:48 04/03/24 17:00 Temperature Temperature Source Pulse Rate 92 89 89 Respiratory Rate 20 H 17 19 H Respiratory Effort Respiratory Pattern Blood Pressure 134/81 H 122/79 H Blood Pressure Mean 98 93 Pulse Ox 98 93 Oxygen Delivery Method Nasal Cannula Nasal Cannula Oxygen Flow Rate (L/min) 4 4 04/03/24 19:00 04/03/24 19:56 Temperature 98.9 F Temperature Source Pulse Rate 91 95 Respiratory Rate 19 H 22 H Respiratory Effort Respiratory Pattern Blood Pressure 139/74 H 116/63 Blood Pressure Mean 95 80 Pulse Ox 98 93 Oxygen Delivery Method Nasal Cannula Oxygen Flow Rate (L/min) 4 Positive well nourished and well developed Constitutional Narrative: 4 L nasal cannula, no respiratory distress. General Appearance ED: well developed and NAD HEENT Reports moist mucous membranes normocephalic and atraumatic Eyes EOMs intact bilaterally and conjunctivae normal General Eye ED: Yes normal appearance of both eyes Neck no lymphadenopathy and supple General: Negative for tenderness Chest Wall Chest: Negative for tenderness Resp Resp Narrative: Coarse breath sounds bilateral lower lobes. Effort and Inspection: symmetric chest movement; Negative for respiratory distress Cardio regular rate, regular rhythm and no murmurs Peripheral Pulses: pulses 2+ throughout GI normal to inspection, nondistended, normoactive bowel sounds and non-tender Palpation: Negative for guarding or rebound tenderness present Back/Spine no CVA tenderness and no thoracic nor lumbar tenderness Extremity normal to inspection General Extremety ED: Negative for edema or tenderness General Extremity: Negative for edema Neuro oriented x3 and no sensory deficits noted Sensorium / Orientation: awake and alert Skin no rashes or lesions noted and no wounds MDM MDM MDM Narrative Medical decision making narrative: Interventions / MDM: Differential diagnosis: Aspiration, pneumonia, non-small cell lung cancer Diagnosis considered but do not suspect: N/A My EKG interpretation: Sinus rate of 90, no ST or T wave changes occasional PVC noted. Imaging independently reviewed and interpreted by myself: 1 view chest x-ray: Mild vascular congestion no clear infiltrates. External documents reviewed: N/A Test considered but not ordered:N/A ED course: Patient currently 5 L oxygenation. Hospice nurses present. However patient and daughter wishes to pursue aggressive management of her symptoms. Concerns for aspiration. She was hypothermic yesterday. Normal thermic today. Coarse breath sounds lower lobes. They wish aggressive treatment and ventilation if needed. They will revoke hospice. Sepsis labs were ordered. anaphylaxis to penicillin therefore Levaquin started for aspiration concerns. Aerosol treatments along with Solu-Medrol. 1720: Reevaluated clinically states she is feeling better. Rhonchi better. Labs white count 11.4. Procalcitonin 20.7. Lactic acid 1.2. Creatinine 0.52. Glucose 254. Urine negative. COVID, influenza, RSV negative. Chest x-ray with concerns for vascular congestion. However clinically concerns for aspiration. On rediscussion patient family states she would now like to go back home because she feels better should not want to be hospitalized. Will have nursing reach out to hospice nurse for discussion. 1829: Nursing discussed with hospice nurse, they are unable go back to the home until tomorrow. Patient still full code. Multiple discussions with patient and family members she is had increasing oxygen demand. Aspiration concerns at present high risk for decompensation. With patient wanting aggressive treatment, I did feel she would benefit from hospitalization. Patient in agreement. Therefore we will reach out to hospitalist service for admission. 1999: Due to busy department awaiting callback from hospitalist, at times she would fall asleep awakens immediately. She is not somnolent. Her CO2 was 41 in the labs. Will check ABG. ABG with CO2 of 44. I discussed with hospitalist Dr. Alatorre for admission to PCU. Re-evaluation: stable Disposition discussed with patient/family/significant other: Patient and daughter Case discussed with consulting clinician: Hospice nurse, Chester, hospitalist This note was generated with [employer] dictation software. It may contain incorrect words, spelling, and punctuation that were not noted in checking the note before signing. Lab Data Attestation: I reviewed the patient's lab results. Labs: Laboratory Results - last 24 hr 04/03/24 04/03/24 04/03/24 15:21 15:58 16:01 WBC 11.4 H RBC 3.64 L Hgb 11.7 L Hct 38.6 MCV 106.0 H MCH 32.1 H MCHC 30.3 L RDW Std Deviation 68.2 H RDW Coeff of Hang 17.3 H Plt Count 237 MPV 10.8 Immature Gran % (Auto) 1.400 H Neut % (Auto) 86.9 H Lymph % (Auto) 4.9 L [place] % (Auto) 6.2 Eos % (Auto) 0.4 Baso % (Auto) 0.2 Absolute Neuts (auto) 9.9 H Absolute Lymphs (auto) 0.56 L Nucleated RBC % 0.5 Differential Comment SCANNED Anisocytosis 1+ PT 13.8 INR 1.1 APTT 23.0 L Sodium 146 H Potassium 2.9 L Chloride 102 Carbon Dioxide 41.0 H Anion Gap 2 L BUN 9 Creatinine 0.52 L Est GFR (MDRD) Af Amer 150 Est GFR (MDRD) Non-Af 124 BUN/Creatinine Ratio 17.3 Glucose 254 H Lactic Acid 1.2 Calcium 8.3 L Total Bilirubin 0.50 AST 27 ALT 54 Alkaline Phosphatase 153 H Total Protein 5.7 L Albumin 2.5 L Globulin 3.2 Albumin/Globulin Ratio 0.8 L Procalcitonin 20.70 H Urine Color Yellow Urine Clarity Clear Urine pH 7.0 Ur Specific [place] 1.010 Urine Protein 30 H Urine Glucose (UA) 1000 H Urine Ketones Negative Urine Occult Blood Negative Urine Nitrite Negative Urine Bilirubin 1 H Urine Urobilinogen Normal Ur Leukocyte Esterase Negative Urine RBC 0 SEEN Urine WBC 0-5 SEEN Ur Squamous Epith Cells 0-5 SEEN Urine Bacteria 0 SEEN Urine Mucus 0 SEEN Radiography Diagnostic Testing: Clinical Impression(s) from Imaging Studies Chest X-Ray 04/03/24 15:19 IMPRESSION: Vascular congestion mild CHF. Right basilar atelectasis with blunting of the right costo phrenic angle. Enlargement of the right infrahilar nodule. Electronically Signed: Chcaorta Whitt MD at 15:40 EDT , Discharge Plan Dx/Rx/DC Orders Clinical Impression: Aspiration into airway, Hypokalemia, CHF (congestive heart failure), COPD (chronic obstructive pulmonary disease) Disposition Disposition: Acute Care Hospital [facility] Discharge Date/Time: 04/03/24 23:04
[2024-04-03] MEDS: levoFLOXacin IV 750 MG/150 ML BAG 100 MG IV (15:53)
[2024-04-03] MEDS: MethylPREDNISolone 125 MG/2 ML Vial 60 MG IV (15:53)
[2024-04-03 15:54] LABS: International Normalized Ratio 1.1; Prothrombin Time (Protime)PT. 13.8 SECONDS (11.7-14.9)
[2024-04-03 16:03] LABS: Lactic Acid 1.2 mmol/L (0.4-1.9)
[2024-04-03 16:04] LABS: Bacteria 0 SEEN /hpf (None Seen); Mucous, Urine 0 SEEN /hpf (<or=2+); Red Blood Cells-Urine 0 SEEN /hpf (0-5)
[2024-04-03 16:06] LABS: ALB/GLOB Ratio 0.8 RATIO (0.9-2.4); AST(SGOT) 27 U/L (15-37); Alanine Aminotransfer ALT/SGPT 54 U/L (13-56); Albumin, Serum 2.5 g/dL (3.2-5.0); Alkaline Phosphatase 153 U/L (45-117); Anion Gap 2 (5-15); BUN 9 mg/dL (7-18); BUN/Creat Ratio 17.3 RATIO (10-20); Calcium,Total 8.3 mg/dL (8.5-10.1); Chloride 102 mmol/L (98-107); Creatinine, Serum 0.52 mg/dL (0.55-1.02); EST Glomerular Filtration Rate 124 mL/min (>60); Est Glom Filt Rate - Afr Amer 150 mL/min (>60); Globulin 3.2 g/dL (2.2-4.2); Glucose 254 mg/dL (74-106); Potassium 2.9 mmol/L (3.5-5.1); Protein, Total 5.7 g/dL (6.4-8.2); Sodium Level 146 mmol/L (136-145)
[2024-04-03 16:25] LABS: Anisocytosis 1+; Differential Comment SCANNED
[2024-04-03 16:32] LABS: Color, Urine Yellow (Yellow); Glucose, Dipstick 1000 mg/dl (Normal); Ketone-Dipstick Negative (Negative); Leukocyte Esterase-Dipstick Negative /ul (Negative); Nitrite-Dipstick Negative (Negative); Occult Blood-Urine Negative /ul (Negative); Protein-Dipstick 30 mg/dl (Negative); Urine Clarity Clear (Clear); Urine Urobilinogen Normal (Normal)
[2024-04-03 16:58] LABS: Urine Bilirubin Dipstick 1 mg/dL (Negative)
[2024-04-03 17:07] LABS: Squamous Epithelial Cells - UA 0-5 SEEN /hpf (5-10); White Blood Cells 0-5 SEEN /hpf (0-5)
--- NOTE | 2024-04-03 18:07 | ED.RN ---
hospice to call daughter (Nicole) to set up nurse assessment
[2024-04-03] MEDS: Furosemide 20 MG/2 ML VIAL IV (18:51)
[2024-04-03] MEDS: Potassium Chloride Oral Tablet 20 MEQ 40 MEQ PO (18:51)
--- NOTE | 2024-04-03 21:03 | HP.PCM.HOS_ITS ---
HPI - General General Date of Admission: 04/03/24 Date of Service: 04/03/24 Chief Complaint: Shortness of breath worsening for last 2 to 3 days HPI Narrative CARINE NEWTON, is a 68 F was brought to ED by EMS for acute on chronic shortness of breath for 2 to 3 days, unable to speak more than 2-3 words, tripoding and leg swelling. As per EMS vitals showed tachycardia, heart rate 103/min, BP 166/95, respiratory rate 22 and ET CO2 43 mmHg. Patient stated for last 3 days she was feeling very short of breath and in the morning today she cannot breathe. She has chest congestions and feels like mucus stuck in the chest but not able to cough out. No fever but felt like mild chills and cold. Bilateral lower extremity swelling on the feet and lower legs. She has a history of lung cancer and after being on maintenance chemotherapy for 6-month, tumor grew therefore she decided no active chemotherapy. Her oncologist Dr. Mclaughlin. She was on home hospice but full code. She is on usually 2.5 L of home oxygen but he was using 4 L at home. In ED she is on 4 L of oxygen. COUNTS INCLUDE 234 BEDS AT THE [facility] Medical History TIA (transient ischemic attack) Encounter for antineoplastic chemotherapy and immunotherapy Fatigue Claustrophobia Frequent falls Hypokalemia Headache Left-sided weakness Skin tear High cholesterol Restless legs Shortness of breath on exertion Heartburn Gastritis Hypertension History of stress test Cardiology follow-up encounter Postprandial vomiting Epigastric pain Acid reflux Hyperglycemia Encounter for chemotherapy management Vaginitis Thrush, oral Rash Insulin dependent diabetes mellitus Cancer Bilateral lower extremity edema Encounter for vitamin B12 injection while on pemetrexed chemotherapy Encounter for education Metastasis to lung Regional lymph node metastasis present Primary cancer of right lung Wears hearing aid Wears glasses Post-menopausal Anxiety Low iron Vertigo History of IBS Smoker Hoarseness Chronic cough History of non-ST elevation myocardial infarction (NSTEMI) (01/19/09) Essential (primary) hypertension Nicotine dependence Atherosclerosis of coronary artery without angina pectoris Diabetes mellitus type II, controlled Obesity (BMI 30-39.9) COPD (chronic obstructive pulmonary disease) HLD (hyperlipidemia) SVT (supraventricular tachycardia) Home Medications ?Medication ?Instructions ?Recorded ?Last Taken ?Type albuterol sulfate 90 mcg/actuation 2 puff inhalation Q4H PRN 07/22/21 12/18/23 History aerosol inhaler shortness of breath or wheezing vitamin E (dl, acetate) 180 mg 400 unit PO DAILY 07/22/21 Unknown History (400 unit) capsule 5-hydroxytryptophan (5-HTP) 100 mg 100 mg PO DAILY 12/27/22 Unknown History capsule melatonin 300 mcg tablet 0.3 mg PO HS 12/27/22 Unknown History multivitamin 1 tab PO DAILY 12/27/22 Unknown History multivitamin with minerals 1 tab PO DAILY 12/27/22 Unknown History (Hair,Skin and Nails tablet) calcium 333 mg-vit D3 200 1 tab PO DAILY 02/27/23 Unknown History unit-magnesium 133 mg-zinc 5 mg tablet glimepiride 4 mg tablet 4 mg PO BID 02/27/23 Unknown History magnesium oxide 500 mg PO DAILY 02/27/23 Unknown History lidocaine-prilocaine 2.5 %-2.5 % 1 applic topical ONCE PRN port 04/20/23 Unknown Rx topical cream access 30 days #30 grams ondansetron 8 mg disintegrating 8 mg PO Q8H PRN nausea and 04/20/23 Unknown Rx tablet vomiting #30 tabs prochlorperazine maleate 10 mg 10 mg PO Q6H PRN nausea and 04/20/23 Unknown Rx tablet vomiting #30 tabs insulin lispro 100 unit/mL 1 sliding scale dose subcut TID 05/01/23 04/30/23 History subcutaneous pen folic acid 1 mg tablet 1 mg PO DAILY #30 tabs 08/03/23 Unknown Rx isosorbide mononitrate 30 mg 30 mg PO DAILY #90 tabs 08/08/23 Unknown Rx tablet,extended release 24 hr insulin glargine 100 unit/mL (3 30 unit subcut QPM 08/18/23 Unknown History mL) subcutaneous pen (Lantus Solostar U-100 Insulin) nystatin 100,000 unit/mL oral 1 ml buccal 4X/DAY 08/18/23 Unknown History suspension atorvastatin 80 mg tablet 80 mg PO QHS #90 tabs 09/10/23 Unknown Rx clopidogrel 75 mg tablet 75 mg PO DAILY #90 tabs 09/10/23 12/13/23 Rx lisinopril 10 mg tablet 10 mg PO DAILY #90 tabs 09/10/23 Unknown Rx metoprolol succinate 50 mg 50 mg PO DAILY #90 tabs 10/04/23 Unknown Rx tablet,extended release 24 hr Disability Placard #1 ea 10/26/23 Unknown Rx oxycodone 5 mg tablet 5 mg PO TID 12/12/23 12/18/23 History cetirizine 10 mg tablet 10 mg PO DAILY PRN allergy 01/06/24 Unknown Rx symptoms #30 tabs omeprazole 40 mg capsule,delayed 40 mg PO DAILY #60 caps 01/18/24 Unknown Rx release dexamethasone 4 mg tablet 4 mg PO .COMPLEX #30 tabs 02/13/24 Unknown Rx potassium chloride 20 mEq 20 meq PO QDAY #30 tabs 02/27/24 Unknown Rx tablet,extended release(part/cryst) nitroglycerin 0.4 mg sublingual 0.4 mg sublingual Q5M PRN chest 03/07/24 Unknown Rx tablet (Nitrostat) pain #25 tabs acetaminophen 500 mg tablet 500 mg PO Q6H PRN pain 04/03/24 Unknown History ciprofloxacin HCl 250 mg tablet 250 mg PO Q12.TCU 04/03/24 Unknown History diclofenac sodium 1 % topical gel topical 04/03/24 Unknown History (Arthritis Pain (diclofenac)) lorazepam 1 mg tablet 0.5 mg PO QDAY PRN 45 min prior to 04/03/24 Unknown History MRI sennosides 8.6 mg-docusate sodium 1 tab PO BID PRN PRN constipation 04/03/24 Unknown History 50 mg tablet (Stimulant Laxative Plus) Allergy/AdvReac Type Severity Reaction Status Date / Time bupropion (From Wellbutrin) Allergy Severe Rash Verified 03/11/24 15:07 cephalexin Allergy Hives Verified 03/11/24 15:07 Fish Containing Products Allergy Anaphylaxis Verified 03/11/24 15:07 Penicillins Allergy Anaphylaxis Verified 03/11/24 15:07 venom-honey bee (bee venom Allergy Shortness Verified 03/11/24 15:07 (honey bee)) of breath sulfadiazine AdvReac Severe Unknown Verified 03/11/24 15:07 Sulfa (Sulfonamide AdvReac Intermediate Pain in Verified 03/11/24 15:07 Antibiotics) joints metformin AdvReac Diarrhea Verified 03/11/24 15:07 Family History Father Diabetes Hypertension CAD (coronary artery disease) Hx CABG Myocardial infarction, Onset Age: 63 Cancer, Onset Age: 77 Mother , from aneurysm at age 40 CVA (cerebral vascular accident) Daughter CAD (coronary artery disease) Brother Cancer Surgical History History of bronchoscopy History of lung biopsy History of toe surgery History of cardiac catheterization History of appendectomy (~02/2021) History of colonoscopy (~2014) History of coronary artery stent placement (01/19/09) History of bilateral carpal tunnel release History of hysterectomy History of left heart catheterization (11/25/15) Social History Smoking Status: Heavy Smoker (>10/day) alcohol intake: never substance use type: does not use caffeine: Yes Type: coffee what type of physical activity do you participate in: none seatbelt use: always do you feel safe at home: Yes ROS ROS Narrative Constitutional: Reports fatigue and weakness. No fever or chills HEENT: Reports systems reviewed and no addt'l complaints, except as documented Respiratory/Chest: Acute respiratory distress. Rest as described in HPI CVS: No anginal-like chest pressure but chest congestion. Gastrointestinal: nausea, vomiting and suspected aspiration. Genitourinary: Denies burning urination or new urinary tract symptoms Musculoskeletal: Denies acute joint pain or limited range of motion. No acute injury Neurologic: Denies seizure-like symptoms. skin: No ulcer. No rash Endocrinology: Reports systems reviewed and no addt'l complaints, except as documented Hematologic/Lymphatic: Reports systems reviewed and no addt'l complaints, except as documented Rest 14 ROS are negative except as mentioned in HPI Vital Signs Vital Signs Vital Signs: 04/03/24 13:52 04/03/24 13:56 04/03/24 14:56 Temperature 98.3 F Temperature Source Oral Pulse Rate 95 Respiratory Rate 16 Respiratory Effort Short of Breath Respiratory Pattern Tachypnea Blood Pressure 128/78 H Blood Pressure Mean 94 Pulse Ox 97 Oxygen Delivery Method Nasal Cannula Nasal Cannula Nasal Cannula Oxygen Flow Rate (L/min) 4 4 4 04/03/24 15:34 04/03/24 15:48 04/03/24 17:00 Temperature Temperature Source Pulse Rate 92 89 89 Respiratory Rate 20 H 17 19 H Respiratory Effort Respiratory Pattern Blood Pressure 134/81 H 122/79 H Blood Pressure Mean 98 93 Pulse Ox 98 93 Oxygen Delivery Method Nasal Cannula Nasal Cannula Oxygen Flow Rate (L/min) 4 4 04/03/24 19:00 04/03/24 19:56 Temperature 98.9 F Temperature Source Pulse Rate 91 95 Respiratory Rate 19 H 22 H Respiratory Effort Respiratory Pattern Blood Pressure 139/74 H 116/63 Blood Pressure Mean 95 80 Pulse Ox 98 93 Oxygen Delivery Method Nasal Cannula Oxygen Flow Rate (L/min) 4 Physical Exam Narrative General: Lethargic. Oriented x 3. In respiratory distress HEENT: Atraumatic, PERRLA, EOMI, Normocephalic Oral: Oral mucosa very dry no Gingival or Mucosal Lesions/ Ulcerations Neck: Supple, No JVD, Negative Carotid Bruits Chest wall/Lungs: Right upper chest Mediport. Air entry diffusely diminished in bilateral lungs. Bilateral coarse crepitations Cardiovascular: Regular rate, Regular Rhythm, Normal S1, Normal S2, No M/G/R Abdomen: Bowel Sounds Present, Soft, Non Tender, Non-Distended : No dysuria. No renal angle tenderness. No suprapubic tenderness. Extremities: Bilateral below-knee pitting edema, Capillary Refill Less than 3 Seconds Skin: No rashes, No breakdown Musculoskeletal: No Tenderness to Palpation of Joints or Extremities. ROM restricted Neurological: Cranial nerves II-XII grossly intact, DTR 2+/4. No acute focal neurological deficit. Psych/Mental Status: Flat affect. Results Lab / Micro Data 04/03/24 15:21 04/03/24 15:21 Labs: Laboratory Results - last 24 hr 04/03/24 15:21: WBC 11.4 H, RBC 3.64 L, Hgb 11.7 L, Hct 38.6, MCV 106.0 H, MCH 32.1 H, MCHC 30.3 L, RDW Std Deviation 68.2 H, RDW Coeff of Hang 17.3 H, Plt Count 237, MPV 10.8, Immature Gran % (Auto) 1.400 H, Neut % (Auto) 86.9 H, Lymph % (Auto) 4.9 L, Irwin % (Auto) 6.2, Eos % (Auto) 0.4, Baso % (Auto) 0.2, Absolute Neuts (auto) 9.9 H, Absolute Lymphs (auto) 0.56 L, Nucleated RBC % 0.5, Differential Comment SCANNED, Anisocytosis 1+, PT 13.8, INR 1.1, APTT 23.0 L, S odium 146 H, Potassium 2.9 L, Chloride 102, Carbon Dioxide 41.0 H, Anion Gap 2 L , BUN 9, Creatinine 0.52 L, Est GFR (MDRD) Af Amer 150, Est GFR (MDRD) Non-Af 124, BUN/Creatinine Ratio 17.3, Glucose 254 H, Lactic Acid 1.2, Calcium 8.3 L, Total Bilirubin 0.50, AST 27, ALT 54, Alkaline Phosphatase 153 H, Total Protein 5.7 L, Albumin 2.5 L, Globulin 3.2, Albumin/Globulin Ratio 0.8 L 04/03/24 15:58: Urine Color Yellow, Urine Clarity Clear, Urine pH 7.0, Ur Specific [place] 1.010, Urine Protein 30 H, Urine Glucose (UA) 1000 H, Urine Ketones Negative, Urine Occult Blood Negative, Urine Nitrite Negative, Urine Bilirubin 1 H, Urine Urobilinogen Normal, Ur Leukocyte Esterase Negative, Urine RBC 0 SEEN, Urine WBC 0-5 SEEN, Ur Squamous Epith Cells 0-5 SEEN, Urine Bacteria 0 SEEN, Urine Mucus 0 SEEN 04/03/24 16:01: Procalcitonin 20.70 H Micro: Microbiology 04/03/24 15:21 Mucosa - Nose SARS-CoV-2, Influenza & RSV (PCR) - Final Imaging Radiology Impression Chest X-Ray 04/03/24 15:19 IMPRESSION: Vascular congestion mild CHF. Right basilar atelectasis with blunting of the right costo phrenic angle. Enlargement of the right infrahilar nodule. Electronically Signed: Chacorta Whitt MD at 15:40 EDT , Assessment & Plan Assessment/Plan (1) Chronic hypoxic respiratory failure: (2) Acute on chronic heart failure: PLAN: Plan This is 68-year-old female is being admitted for shortness of breath, increased hypoxia, suspected pneumonia and CHF exacerbation 1. Chronic hypoxic and hypercarbic respiratory failure with increased hypoxia: Patient is being admitted in PCU. ABG 7.45/60/76 on 4 L of oxygen through nasal cannula. Patient uses only on 2.5 liter of home therefore does not meet criteria for acute hypoxic respiratory failure. As there is suspicion of aspiration therefore would not put on BiPAP. Patient was also lethargic. Continue high flow oxygen and if needed, Airvo. 2. Suspected aspiration pneumonia: Chest x-ray initially reviewed and shows enlargement of right infrahilar nodule, atelectasis and infiltrate therefore suspected aspiration. Pneumonia workup ordered. Speech therapy evaluation. Started on IV Levaquin and Flagyl. Patient is allergic to penicillin. Triple PCR for SARS-CoV-2, flu and RSV are negative 3. Acute on chronic heart failure possible HFpEF: Patient does not have recent echo but last 04 January 2016 which shows EF 60%, LV systolic function normal. 2D echo ordered. Started on Lasix 20 mg IV twice daily as blood pressure is in low 110s. Patient had good urinary output with Lasix 20 mg IV in ED. Heart failure core measures including intake and output, fluid restriction less than 1500 mL, daily weight monitoring, kidney and electrolytes monitoring. 4. Acute dyspnea at rest on chronic dyspnea on exertion due to COPD exacerbation possible from pneumonia: Patient is being managed on scheduled bronchodilator, IV Solu-Medrol, Mucinex, incentive spirometry and Pep. 5. Metastatic adenocarcinoma of lung: Patient had biopsy of right lung mass on 03/03/2023 which showed adenocarcinoma with metastatic spread to hilar lymph nodes and to the left upper lobe. She underwent chemotherapy and immunotherapy and patient did not respond with 6 months of maintenance therapy. Her oncologist Dr. Mclaughlin told further treatment will be debilitating with poor quality of life therefore she decided against active treatment. She is under home hospice care 6. Acute debility: She requires 1 person assistance for all ADL. Patient is rollator in her home and wheelchair for long distance. Sleep upright for dyspnea. Last 40 pound weight in last 2 to 3 months in total of 70 pounds since her diagnosis. PPS, palliative performance scale is 50%, as per the hospice attending Dr. Merlene Burgess. PT and OT ordered. 7. DM type II: Glucose in BMP is 254 which is likely to go up on IV Solu- Medrol. Accu-Chek before meals and at bedtime with Humalog sliding scale coverage and hypoglycemia protocol. 8. Hypokalemia: Potassium 2.9. IV KCl ordered. Serum magnesium and phosphorus ordered. Mild hyponatremia 146 possible due to CHF. 9. CAD status post stents: Patient does not have anginal-like chest pain. Serial troponins ordered. 10. Chronic comorbid conditions: Hypertension, dyslipidemia, chronic degenerative joint disease with chronic back pain and history of pulmonary DVT and in scheduled. Home medication reconciliation. Living will/advanced directive/end of life care: Patient does have living will or advanced directive. Her daughter Mrs. Rivera present in ED is power of sports attorney for health. After discussion of benefits/risks procedures involved with full code, DNR CC arrest and DNR CC, the patient opted for full code although she is on home hospice care. She revoked hospice before coming here. Patient does want artificial life support including intubation, tube feed, ventilator and/chest compression, central venous catheter, vasopressor and DC shock if needed Total time spent in [id number] encounter in discussion of advanced directive 17 minutes. Microbiology Past 72 Hours 04/03/24 15:21 Mucosa - Nose SARS-CoV-2, Influenza & RSV (PCR) - Final Laboratory Results 04/03/24 15:21: WBC 11.4 H, RBC 3.64 L, Hgb 11.7 L, Hct 38.6, MCV 106.0 H, MCH 32.1 H, MCHC 30.3 L, RDW Std Deviation 68.2 H, RDW Coeff of Hang 17.3 H, Plt Count 237, MPV 10.8, Immature Gran % (Auto) 1.400 H, Neut % (Auto) 86.9 H, Lymph % (Auto) 4.9 L, Irwin % (Auto) 6.2, Eos % (Auto) 0.4, Baso % (Auto) 0.2, Absolute Neuts (auto) 9.9 H, Absolute Lymphs (auto) 0.56 L, Nucleated RBC % 0.5, Differential Comment SCANNED, Anisocytosis 1+, PT 13.8, INR 1.1, APTT 23.0 L, Sodium 146 H, Potassium 2.9 L, Chloride 102, Carbon Dioxide 41.0 H, Anion Gap 2 L, BUN 9, Creatinine 0.52 L, Est GFR (MDRD) Af Amer 150, Est GFR (MDRD) Non-Af 124, BUN/Creatinine Ratio 17.3, Glucose 254 H, Lactic Acid 1.2, Calcium 8.3 L, Total Bilirubin 0.50, AST 27, ALT 54, Alkaline Phosphatase 153 H, Total Protein 5.7 L, Albumin 2.5 L, Globulin 3.2, Albumin/Globulin Ratio 0.8 L 04/03/24 15:58: Urine Color Yellow, Urine Clarity Clear, Urine pH 7.0, Ur Specific [place] 1.010, Urine Protein 30 H, Urine Glucose (UA) 1000 H, Urine Ketones Negative, Urine Occult Blood Negative, Urine Nitrite Negative, Urine Bilirubin 1 H, Urine Urobilinogen Normal, Ur Leukocyte Esterase Negative, Urine RBC 0 SEEN, Urine WBC 0-5 SEEN, Ur Squamous Epith Cells 0-5 SEEN, Urine Bacteria 0 SEEN, Urine Mucus 0 SEEN 04/03/24 16:01: Procalcitonin 20.70 H 04/03/24 21:03: Specimen Type ART, Sample Site R Radial, pH 7.45, Bicarbonate Actual 41.7 H, Total CO2 44, Base Excess 18 H, O2 Saturation 95, O2 % 4.0, ABG pCO2 59.6 H, ABG pO2 76, Lebron Test Positive, O2 Delivery Device Cannula, Vent Mode Not entered Clinical Impression(s) from Imaging Studies Chest X-Ray 04/03/24 15:19 IMPRESSION: Vascular congestion mild CHF. Right basilar atelectasis with blunting of the right costo phrenic angle. Enlargement of the right infrahilar nodule. Charges/Coding Visit Charges Inpatient E&M: 42096 Init Hosp L3 Procedures Hospitalists Procedures: 44817 Advncd Care Plan 30 Min
[2024-04-03 21:07] LABS: Allen Test Positive; Base Excess 18 mmol/L (-2 to +2); Bicarbonate 41.7 mmol/L (22-26); Blood Gas Specimen Type ART; Mode Not entered; O2 Delivery Device Cannula; PO2 76 mmHG (75-100); SITE R Radial; SO2 95 % (95-99); Total Carbon Dioxide 44 mmol/L; pCO2 59.6 mmHg (35-45); pH 7.45 (7.35-7.45)
--- NOTE | 2024-04-03 23:40 | ECHOD_ITS ---
Reason For Study: SOB, HF Procedure This was a 2D Doppler, Color Flow transthoracic echocardiogram. Exam performed in department. Left Ventricle Normal LV size. Left ventricular systolic function is normal. The left ventricular ejection fraction is 65 %. No regional wall motion abnormalities noted. Right Ventricle Normal RV size. Normal systolic function. Atria Normal left atrium. Normal right atrium. Mitral Valve Normal mitral valve. Mild (1+) eccentric mitral valve insufficiency. Tricuspid Valve Normal tricuspid valve. Mild (1+) tricuspid valve insufficiency. Right ventricular systolic pressure estimated to be 48 mmHg. Mild pulmonary hypertension. Aortic Valve Trisinus/trileaflet aortic valve. Pulmonic Valve Normal pulmonic valve. Great Vessels Normal aortic root. The pulmonary artery is normal size. The inferior vena cava is dilated. Pericardium/Pleural No pericardial effusion. MMode/2D Measurements & Calculations LVIDd: 4.4 cm IVSd: 0.88 cm LVOT diam: 1.8 cm LVIDs: 3.3 cm LVPWd: 0.99 cm LVOT area: 2.6 cm2 RVDd: 2.9 cm FS: 25.5 % asc Aorta Diam: 2.8 cm LAV(MOD-sp4): 20.7 ml LVAd ap4: 15.5 cm2 LVLd ap4: 6.3 cm EDV(MOD-sp4): 31.7 ml EDV(sp4-el): 32.1 ml LVAs ap4: 8.2 cm2 LVLs ap4: 5.0 cm ESV(MOD-sp4): 11.1 ml ESV(sp4-el): 11.5 ml EF(MOD-sp4): 65.0 % EF(sp4-el): 64.2 % SV(MOD-sp4): 20.6 ml SV(sp4-el): 20.6 ml LA A4 area: 10.5 cm2 SI(MOD-sp4): 11.7 ml/m2 RA A4 area: 14.8 cm2 Doppler Measurements & Calculations MV E max modesta: 91.3 cm/sec Ao V2 max: 128.1 cm/sec LV V1 max: 88.1 cm/sec Ao max P.6 mmHg LV V1 max P.1 mmHg Ao V2 mean: 84.8 cm/sec LV V1 mean P.6 mmHg Ao mean P.4 mmHg LV V1 mean: 59.3 cm/sec Ao V2 VTI: 26.9 cm LV V1 VTI: 20.4 cm AV (velocity ratio): 0.76 MIA(I,D): 2.0 cm2 MIA(V,D): 1.8 cm2 SV(LVOT): 54.0 ml PA V2 max: 72.5 cm/sec TR max modesta: 325.8 cm/sec PA max PG (full): 0.95 mmHg TR max P.5 mmHg ECHO/Echo Complete Interpretation Summary Normal LV size. Left ventricular systolic function is normal. The left ventricular ejection fraction is 65 %. Right ventricular systolic pressure estimated to be 48 mmHg. Mild pulmonary hypertension. Ordering Physician: Fred Alatorre Referring Physician: DEVAN DUNNE Performed By: Camilla Hunter and Student
[2024-04-04] VITALS (10 sets, daily range): BP systolic 122–154; BP diastolic 65–92; PULSE 81–97; RESP 17–22; TEMP 36.2–37; O2SAT 96–98; BMI 28.5
[2024-04-04 00:22] LABS: Hematocrit 37.9 % (37-47); Hemoglobin 11.6 g/dL (12.0-15.0); Mean Corp Hgb Conc 30.6 g/dL (32-36); Mean Corpuscular Volume 104.7 fL (81-99); Mean Platelet Vol. 10.4 fl (6.2-12.0); POSITIVE MORPHOLOGY YES; Platelet Count 236 K/mm3 (150-450); RBC Distribution Width CV 17.2 % (11.6-14.6); RBC Distribution Width SD 67.2 fl (35.1-43.9); Red Blood Count 3.62 M/mm3 (4.2-5.4); White Blood Count 10.2 K/mm3 (4.4-11.0)
[2024-04-04 00:24] LABS: Scan Indicated on CBC? Y/N YES- FLAGS NOTED
[2024-04-04] MEDS: Metoprolol(XL)Succ 25 MG Tablet 12.5 MG PO (00:29)
[2024-04-04] MEDS: Enoxaparin 40 MG/0.4 ML Syringe SC (00:29)
[2024-04-04] MEDS: metroNIDAZOLE 500 MG/100 ML BAG 100 MG IV ×2 (00:32→06:52)
[2024-04-04 00:39] LABS: Phosphorus 2.7 mg/dL (2.5-4.9)
[2024-04-04 00:41] LABS: Magnesium 1.7 mg/dL (1.6-2.6); Troponin-I HS 14 pg/mL (3.0-54.0)
[2024-04-04] MEDS: Potassium Chloride 10mEq/100mL 10 MEQ/100 ML IV.SOLN. 100 MEQ IV BOLUS ×4 (00:54→04:13)
[2024-04-04] MEDS: guaiFENesin/D-Methorphan TAB.SR.12H 1 TABLET PO (01:03)
[2024-04-04] MEDS: Insulin Glargine-YFGN 100 UNIT/ML Pen 10 UNIT SC (01:03)
[2024-04-04 01:26] LABS: Bedside Glucose 203 mg/dL (74-106)
[2024-04-04] MEDS: Menthol/Lanolin/Calamine/Znox 113 GM Tube 1 APPLIC TOPICAL ×2 (02:08→11:40)
[2024-04-04] MEDS: LORazepam 0.5 MG Tablet PO ×2 (02:08→06:44)
[2024-04-04] MEDS: Ipratropium/Albuterol Sulfate 3 ML AMPUL.NEB INHALATION ×3 (02:21→14:48)
[2024-04-04 02:26] LABS: Magnesium 1.8 mg/dL (1.6-2.6); Troponin-I HS 15 pg/mL (3.0-54.0)
[2024-04-04 06:22] LABS: Absolute Lymphocyte Count 0.39 X10^3/uL (0.83-4.51); Absolute Neutrophil Count 11.3 X10^3/uL (2.0-7.7); Basophil# 0.02 X10^3/uL; Basophil% 0.2 % (0-1); Hematocrit 37.2 % (37-47); Hemoglobin 11.7 g/dL (12.0-15.0); Lymphocyte # 0.39 X10^3/ul (0.83-4.51); Lymphocyte % 3.1 % (19-41); Mean Corp Hgb Conc 31.5 g/dL (32-36); Mean Corpuscular Hgb 32.8 pg (27.0-32.0); Mean Corpuscular Volume 104.2 fL (81-99); Mean Platelet Vol. 10.7 fl (6.2-12.0); Monocyte# 0.64 X10^3/uL; Monocyte% 5.1 % (0-10); NRBC Flagged by Analyzer 0.2 % (0-5); Neutrophil # 11.26 X10^3/uL (2.7-7.7); Neutrophil % 90.2 % (47-70); POSITIVE DIFFERENTIAL YES; POSITIVE MORPHOLOGY YES; Platelet Count 222 K/mm3 (150-450); RBC Distribution Width CV 17.1 % (11.6-14.6); Red Blood Count 3.57 M/mm3 (4.2-5.4); White Blood Count 12.5 K/mm3 (4.4-11.0)
[2024-04-04 06:27] LABS: Differential Indicated SCAN CRITERIA MET
[2024-04-04 06:44] LABS: Anion Gap 2 (5-15); BUN 12 mg/dL (7-18); BUN/Creat Ratio 26.8 RATIO (10-20); Calcium,Total 8.5 mg/dL (8.5-10.1); Chloride 103 mmol/L (98-107); Cholesterol 138 mg/dL (200); Creatinine, Serum 0.45 mg/dL (0.55-1.02); EST Glomerular Filtration Rate 147 mL/min (>60); Est Glom Filt Rate - Afr Amer 178 mL/min (>60); Estimated Creatinine Clearance 65.14 ml/min; Glucose 170 mg/dL (74-106); High Density Lipoprotein 53 mg/dL; Potassium 3.8 mmol/L (3.5-5.1); Sodium Level 144 mmol/L (136-145); Thyroid Stim Hormone (TSH) 0.424 uIU/mL (0.358-3.740); Triglycerides 98 mg/dL; Troponin-I HS 16 pg/mL (3.0-54.0); Very Low Density Lipoprotein 20 mg/dL (5-40)
[2024-04-04] MEDS: oxyCODONE 5 MG Tablet PO (06:44)
[2024-04-04] MEDS: Senna/Docusate Sodium 1 Tablet PO (06:44)
[2024-04-04] MEDS: 0.9 % NaCl (Sterile) Posiflush 10 mL IV ×2 (06:46→11:44)
[2024-04-04] MEDS: Insulin Lispro 100 UNIT/ML INSULN.PEN SC (06:46)
[2024-04-04 07:15] LABS: Bedside Glucose 170 mg/dL (74-106)
[2024-04-04 07:20] LABS: Hemoglobin A1c 9.4 % (3.8-5.6)
[2024-04-04] MEDS: Nystatin Powder 15gm Bottle 1 APPLIC TOPICAL (11:40)
--- NOTE | 2024-04-04 12:21 | CASEMGMT ---
RN CM Assessment Face to Face with patient for initial transition planning/care coordination assessment. Pt is A&Ox1-2 and unable to answer this RN CM questions accordingly. Pt daughter, Humera, at bedside and willing to help. Care providers, pharmacy, and demographics verified. Admitting dx: SOB, CHF LACE Strata: 3 PCP: Eduardo Alvarez Specialists: Denies Preferred Pharmacy: [facility] Insurance: [employer] [facility] Prescription Benefit: Yes LNOK: Nicole Hassan (Mark), Albert Leal (Son), Humera (Mark) Living Arrangements: Pt lives with her friend and friend's daughter in a bi-level home with 7 steps to the upper and lower portions. Pt was home on hospice prior to coming into the hospital. ADLs/IADLs: Pt requires assistance and the pt friend, friend's daughter, and Hospice professionals are able to provide this assistance Transportation: Pt friend, friend's daughter DME: Home oxygen through the Hospice program. Glucometer with supplies. Shower chair. BSC. Walker. W/C. Scooter. BP Monitor. Pulse Ox. HHC/SNF: Denies Pt?s goal: Home on Hospice Plan: At this time, the pt, pt RN, and pt Daughter state that the pt is wanting to return home on hospice. [employer] CM and SW updated and aware. Alize Mcfarlane RN, CM
--- NOTE | 2024-04-04 14:17 | PCM.DC.SUM ---
Providers Date of Admission: 04/03/24 Date of Discharge: 04/04/24 Primary Care Physician: Dr. Eduardo Dunne MD Reason For Visit: ASPIRATIONS SOB CHF Diagnosis Discharge Diagnosis (1) Chronic hypoxic respiratory failure: Status: Chronic Code(s): J96.11 - Chronic respiratory failure with hypoxia (2) Acute on chronic heart failure: Status: Chronic Code(s): I50.9 - Heart failure, unspecified Medications at Discharge Home Medications albuterol sulfate 90 mcg/actuation aerosol inhaler 2 puff inhalation Q4H PRN shortness of breath or wheezing 07/22/21 vitamin E (dl, acetate) 180 mg (400 unit) capsule 400 unit PO DAILY SUPPLEMENT 07/22/21 5-hydroxytryptophan (5-HTP) 100 mg capsule 100 mg PO DAILY MOOD STABILZER 12/27/22 multivitamin with minerals (Hair,Skin and Nails tablet) 1 tab PO DAILY SUPPLEMENT 12/27/22 calcium 333 mg-vit D3 200 unit-magnesium 133 mg-zinc 5 mg tablet 1 tab PO DAILY SUPPLEMENT 02/27/23 glimepiride 4 mg tablet 4 mg PO BID DM 02/27/23 magnesium oxide 500 mg PO DAILY supplement 02/27/23 lidocaine-prilocaine 2.5 %-2.5 % topical cream 1 applic topical ONCE PRN port access 30 days #30 grams 04/20/23 ondansetron 8 mg disintegrating tablet 8 mg PO Q8H PRN nausea and vomiting #30 tabs 04/20/23 insulin lispro 100 unit/mL subcutaneous pen 1 sliding scale dose subcut TID diabetes 05/01/23 folic acid 1 mg tablet 1 mg PO DAILY SUPPLEMENT #30 tabs 08/03/23 isosorbide mononitrate 30 mg tablet,extended release 24 hr 30 mg PO DAILY BP #90 tabs 08/08/23 insulin glargine 100 unit/mL (3 mL) subcutaneous pen (Lantus Solostar U-100 Insulin) 30 unit subcut QPM diabetes 08/18/23 clopidogrel 75 mg tablet 75 mg PO DAILY BLOOD THINNER #90 tabs 09/10/23 lisinopril 10 mg tablet 10 mg PO DAILY BP #90 tabs 09/10/23 metoprolol succinate 50 mg tablet,extended release 24 hr 50 mg PO DAILY BP #90 tabs 10/04/23 Disability Placard #1 ea 10/26/23 oxycodone 5 mg tablet 5 mg PO TID pain 12/12/23 cetirizine 10 mg tablet 10 mg PO DAILY PRN allergy symptoms #30 tabs 01/06/24 omeprazole 40 mg capsule,delayed release 40 mg PO DAILY GERD #60 caps 01/18/24 potassium chloride 20 mEq tablet,extended release(part/cryst) 20 meq PO QDAY SUPPLEMENT #30 tabs 02/27/24 nitroglycerin 0.4 mg sublingual tablet (Nitrostat) 0.4 mg sublingual Q5M PRN chest pain #25 tabs 03/07/24 acetaminophen 500 mg tablet 500 mg PO Q6H PRN pain 04/03/24 diclofenac sodium 1 % topical gel (Arthritis Pain (diclofenac)) topical 04/03/24 sennosides 8.6 mg-docusate sodium 50 mg tablet (Stimulant Laxative Plus) 1 tab PO TID constipation 04/03/24 albuterol sulfate 2.5 mg/3 mL (0.083 %) solution for nebulization 1 inhalation Q4H PRN PRN shortness of breath or wheezing 04/04/24 bisacodyl 10 mg rectal suppository 10 mg ME DAILY PRN constipation 04/04/24 furosemide 20 mg tablet 20 mg PO Q12H EDEMA 04/04/24 levofloxacin 500 mg tablet 500 mg PO DAILY #5 tabs 04/04/24 lorazepam 0.5 mg tablet 0.5 mg PO Q6H PRN PRN anxiety 04/04/24 lorazepam 0.5 mg tablet (Ativan) 0.5 mg PO TID ANXIETY 04/04/24 oxycodone 5 mg capsule 5 mg PO Q6H PRN pain 04/04/24 Hospital Course Operations None Procedures 2-D Echocardiogram Summary of Care Provided Minutes Spent on Discharge: 65 Hospital Course: Patient is a 76-year-old female with an extensive past medical history as outlined which includes lung cancer for which she was on hospice at home was admitted through the ED on 04/03/2024 with a complaint of shortness of breath which had been going on for about 2 to 3 days prior to admission. She had a still lower extremity swelling and was tripoding so she revoked home hospice and came into the ED. She also had chest congestions and felt like she had mucus stuck in her chest and she could not get it out. He usually wore 2.5 L at home but had been using 4 L at home due to her shortness of breath. Chest x-ray showed vascular congestion with mild CHF and right basilar atelectasis with blunting of the right costophrenic angle and enlargement of the right infrahilar nodule. She was admitted and managed for hypoxia in the setting of chronic hypoxic and hypercapnic respiratory failure due to concerns for aspiration pneumonia and acute on chronic heart failure. She was started on IV Levaquin and Flagyl as she was allergic to penicillins. COVID flu and RSV test were negative. She was also diuresed with IV Lasix due to concern for acute exacerbation of heart failure. 2D echo ordered showed EF of 65% with right ventricular systolic pressure 48 mmHg indicating mild pulmonary hypertension. She had normal left ventricular size and systolic function. Patient and family requested that she be discharged back home on hospice as patient says she did not want to be in the hospital. She would have was given a prescription for p.o. levofloxacin 500 mg daily for 5 days and discharged home back on home hospice on 04/04/2024. His son and [id number] were counseled extensively that the shortness of breath could recur in light of her cancer for which she was receiving treatment. They were counseled that they would need to talk to hospice to see if there were other modalities that patient could be given to decrease her air hunger and decreased secretion so that she would not come into the hospital unless she requested to. They expressed understanding of this. Patient was seen and examined prior to discharge. She had no active complaints and had an uneventful night. Review of systems otherwise negative. Labs and vitals reviewed. Home medication reviewed and reconciled. Physical Exam Const alert Constitutional Narrative: frail, weak, lethargic General Appearance: cooperative Orientation / Consciousness: awake Exam Limitations: no limitations HEENT normocephalic, head/scalp atraumatic and hearing grossly normal bilaterally Mouth: oral and palatal mucosa normal Eyes PERRL and EOMs intact bilaterally Neck no lymphadenopathy and supple Resp Resp Narrative: Coarse crackles bilaterally. Mildly diminished breath sounds. On 4 L of oxygen by nasal cannula. Cardio regular rate, regular rhythm, S1 normal heart sound, S2 normal heart sound and no murmurs GI normal to inspection, nondistended, normoactive bowel sounds, soft to palpation and non-tender Extremity normal to inspection, full ROM and no clubbing, cyanosis or edema Skin no rashes or lesions noted Neuro oriented x3, CN's II-XII intact bilaterally and moves all extremities Neuro Narrative: hard of hearing Sensorium / Orientation: awake and alert Motor Exam: strength 5/5 throughout Psych Psych Narrative: flat affect Weight / BMI Weight Weight: 166 lb 10.711 oz Body Mass Index (BMI) 28.5 ABG / Lab / Microbiology Data 04/04/24 06:11 04/04/24 06:11 Laboratory: Laboratory Results - last 24 hr 04/03/24 15:21: WBC 11.4 H, RBC 3.64 L, Hgb 11.7 L, Hct 38.6, MCV 106.0 H, MCH 32.1 H, MCHC 30.3 L, RDW Std Deviation 68.2 H, RDW Coeff of Hang 17.3 H, Plt Count 237, MPV 10.8, Immature Gran % (Auto) 1.400 H, Neut % (Auto) 86.9 H, Lymph % (Auto) 4.9 L, [place] % (Auto) 6.2, Eos % (Auto) 0.4, Baso % (Auto) 0.2, Absolute Neuts (auto) 9.9 H, Absolute Lymphs (auto) 0.56 L, Nucleated RBC % 0.5, Differential Comment SCANNED, Anisocytosis 1+, PT 13.8, INR 1.1, APTT 23.0 L, Sodium 146 H, Potassium 2.9 L, Chloride 102, Carbon Dioxide 41.0 H, Anion Gap 2 L, BUN 9, Creatinine 0.52 L, Est GFR (MDRD) Af Amer 150, Est GFR (MDRD) Non-Af 124, BUN/Creatinine Ratio 17.3, Glucose 254 H, Lactic Acid 1.2, Calcium 8.3 L, Total Bilirubin 0.50, AST 27, ALT 54, Alkaline Phosphatase 153 H, Total Protein 5.7 L, Albumin 2.5 L, Globulin 3.2, Albumin/Globulin Ratio 0.8 L 04/03/24 15:58: Urine Color Yellow, Urine Clarity Clear, Urine pH 7.0, Ur Specific [place] 1.010, Urine Protein 30 H, Urine Glucose (UA) 1000 H, Urine Ketones Negative, Urine Occult Blood Negative, Urine Nitrite Negative, Urine Bilirubin 1 H, Urine Urobilinogen Normal, Ur Leukocyte Esterase Negative, Urine RBC 0 SEEN, Urine WBC 0-5 SEEN, Ur Squamous Epith Cells 0-5 SEEN, Urine Bacteria 0 SEEN, Urine Mucus 0 SEEN 04/03/24 16:01: Procalcitonin 20.70 H 04/04/24 00:11: WBC 10.2, RBC 3.62 L, Hgb 11.6 L, Hct 37.9, MCV 104.7 H, MCH 32.0, MCHC 30.6 L, RDW Std Deviation 67.2 H, RDW Coeff of Hang 17.2 H, Plt Count 236, MPV 10.4, Phosphorus 2.7, Magnesium 1.7, Troponin I High Sens 14 04/04/24 00:46: POC Glucose 203 H 04/04/24 01:55: Magnesium 1.8, Troponin I High Sens 15 04/04/24 06:11: WBC 12.5 H, RBC 3.57 L, Hgb 11.7 L, Hct 37.2, MCV 104.2 H, MCH 32.8 H, MCHC 31.5 L, RDW Std Deviation 66.0 H, RDW Coeff of Hang 17.1 H, Plt Count 222, MPV 10.7, Immature Gran % (Auto) 1.400 H, Neut % (Auto) 90.2 H, Lymph % (Auto) 3.1 L, [place] % (Auto) 5.1, Eos % (Auto) 0.0, Baso % (Auto) 0.2, Absolute Neuts (auto) 11.3 H, Absolute Lymphs (auto) 0.39 L, Nucleated RBC % 0.2, Sodium 144, Potassium 3.8, Chloride 103, Carbon Dioxide 39.0 H, Anion Gap 2 L, BUN 12, Creatinine 0.45 L, Estim Creat Clear Calc 65.14, Est GFR (MDRD) Af Amer 178, Est GFR (MDRD) Non-Af 147, BUN/Creatinine Ratio 26.8 H, Glucose 170 H, Hemoglobin A1c 9.4 H, Calcium 8.5, Troponin I High Sens 16, Triglycerides 98, Cholesterol 138, LDL Cholesterol 65, VLDL Cholesterol 20, HDL Cholesterol 53, TSH 0.424 04/04/24 06:42: POC Glucose 170 H Microbiology: Microbiology 04/03/24 15:58 Urine, Random Urine Culture - Preliminary Culture exhibits no growth. 04/04/24 01:55 Mucosa - Nasopharyngeal Respiratory Panel (PCR) - Final 04/04/24 02:20 Urine, Clean Catch Legionella Antigen - Final 04/04/24 02:20 Urine, Clean Catch Streptococcus pneumoniae Antigen (M - Final 04/03/24 15:21 Mucosa - Nose SARS-CoV-2, Influenza & RSV (PCR) - Final ABG: ABG 04/03/24 21:03 Specimen Type ART Sample Site R Radial pH 7.45 Bicarbonate Actual 41.7 H Total CO2 44 Base Excess 18 H O2 Saturation 95 O2 % 4.0 ABG pCO2 59.6 H ABG pO2 76 [place] Test Positive O2 Delivery Device Cannula Vent Mode Not entered Radiography Diagnostic Testing: Radiology Impression Chest X-Ray 04/03/24 15:19 IMPRESSION: Vascular congestion mild CHF. Right basilar atelectasis with blunting of the right costo phrenic angle. Enlargement of the right infrahilar nodule. Electronically Signed: Chacorta Whitt MD at 15:40 EDT , Echocardiogram 04/03/24 23:40 Interpretation Summary Normal LV size. Left ventricular systolic function is normal. The left ventricular ejection fraction is 65 %. Right ventricular systolic pressure estimated to be 48 mmHg. Mild pulmonary hypertension. Ordering Physician: Fred Alatorre Referring Physician: EDUARDO DUNNE Performed By: Camilla Hunter and Student D/C Instructions Discharge Diet: Low fat / Low cholesterol Discharge Activity: Return to Normal Activity Weight Bearing Status: Weight bearing as tolerated Call your doctor if you observe: Fever of 101 or Higher, Shortness of breath, Dizziness, Swelling in the ankles and Chest pain Meaningful Use Info Meaningful Use Meaningful Use Diagnoses (Choose all that apply): CHF CHF CYRUS/ARB ordered at discharge?: Yes Documented LVEF (%): 65 Ischemic Stroke Statin Dosing Therapy Reference: STATIN DOSE THERAPY REFERENCE: * Patients > 75 years receive moderate or high dose statin therapy. * Patients 75 years or YOUNGER should receive HIGH intensity statin dose unless contraindicated. You will be required to document reason for non-treatment if statin daily dose does not meet guidelines. HIGH DOSE STATIN THERAPY DAILY Atorvastatin > than or = to 40 mg Rosuvastatin > than or = to 20 mg Amlodipine + Atorvastatin > than or = to 2.5/40 mg Ezetimibe + Simvastatin 10/80 mg Simvastatin 80mg Discharge Plan Admission Admit Date/Time: 04/03/24 20:57 Primary Reason for Your Visit: aspiration pneumonia Attending Provider: Colleen Adames Primary Care Provider: Eduardo Dunne Consulting Providers: Fred Alatorre Instructions Patient Instructions: Dysphagia Aspiration, ED Pneumonia (Adult) Discharge Orders/Prescriptions Prescriptions: New levofloxacin 500 mg tablet 500 mg PO DAILY Qty: 5 0RF Continued vitamin E (dl, acetate) 180 mg (400 unit) capsule 400 unit PO DAILY albuterol sulfate 90 mcg/actuation HFA aerosol inhaler 2 puff inhalation Q4H PRN (Reason: shortness of breath or wheezing) Patient Comments: inhale two puffs FOUR TIMES DAILY NEEDED 5-hydroxytryptophan (5-HTP) 100 mg capsule 100 mg PO DAILY Hair,Skin and Nails Tablet 1 tab PO DAILY magnesium oxide 500 mg tablet 500 mg PO DAILY glimepiride 4 mg tablet 4 mg PO BID Patient Comments: Take 1 (one) Tablet by mouth two times daily calcium carb-D3-mag [id number] [id number]-mg tablet 1 tab PO DAILY Rx Instructions: administer with a meal lidocaine-prilocaine 2.5-2.5 % cream 1 applic topical ONCE PRN (Reason: port access) 30 Days Qty: 30 2RF ondansetron 8 mg tablet,disintegrating 8 mg PO Q8H PRN (Reason: nausea and vomiting) Qty: 30 2RF folic acid 1 mg tablet 1 mg PO DAILY Qty: 30 2RF (DME) Disability Placard See Rx Instructions .Route .MEDSUPPLY Qty: 1 0RF Rx Instructions: Lifetime; no expiration cetirizine 10 mg tablet 10 mg PO DAILY PRN (Reason: allergy symptoms) Qty: 30 0RF insulin lispro 100 unit/mL insulin pen 1 sliding scale dose SUBCUT TID insulin glargine [Lantus Solostar U-100 Insulin] 100 unit/mL (3 mL) insulin pen 30 unit subcut QPM Rx Instructions: sliding scate oxycodone 5 mg tablet 5 mg PO TID sennosides-docusate sodium [Stimulant Laxative Plus] 8.6-50 mg tablet 1 tab PO TID Rx Instructions: GIVE W OXYCODONE diclofenac sodium [Arthritis Pain (diclofenac)] 1 % gel topical acetaminophen 500 mg tablet 500 mg PO Q6H PRN (Reason: pain ) oxycodone 5 mg capsule 5 mg PO Q6H PRN (Reason: pain) lorazepam 0.5 mg tablet 0.5 mg PO Q6H PRN PRN (Reason: anxiety) albuterol sulfate 2.5 mg /3 mL (0.083 %) solution for nebulization 1 inhalation Q4H PRN PRN (Reason: shortness of breath or wheezing) bisacodyl 10 mg suppository 10 mg ME DAILY PRN (Reason: constipation) furosemide 20 mg tablet 20 mg PO Q12H lorazepam [Ativan] 0.5 mg tablet 0.5 mg PO TID isosorbide mononitrate 30 mg tablet extended release 24 hr 30 mg PO DAILY Qty: 90 3RF clopidogrel 75 mg tablet 75 mg PO DAILY Qty: 90 3RF lisinopril 10 mg tablet 10 mg PO DAILY Qty: 90 3RF metoprolol succinate 50 mg tablet extended release 24 hr 50 mg PO DAILY Qty: 90 3RF omeprazole 40 mg capsule,delayed release(DR/EC) 40 mg PO DAILY Qty: 60 2RF potassium chloride 20 mEq tablet,ER particles/crystals 20 meq PO QDAY Qty: 30 0RF nitroglycerin [Nitrostat] 0.4 mg tablet, sublingual 0.4 mg SUBLINGUAL Q5M PRN (Reason: chest pain) Qty: 25 3RF Referrals / Follow Up: Eduardo Dunne MD [Primary Care Provider] - 04/12/24 11:20 am Disposition Disposition (needs filled in before D/C Order can be placed): Hospice in Home Charges/Coding Visit Charges Inpatient E&M: 97054 Disch Hosp >30min
--- NOTE | 2024-04-04 15:36 | NS ---
04/04/24: Pt known to this RD from outpatient oncology. Noted to be on hospice services prior to admission with plan for return to hospice at discharge today. Per rn social services, pt is agitated. RD was going to check in to see if pt has any nutrition needs but daughter asked RD to not come in. RDN will sign off on outpatient services at this time d/t pt on hospice. Alyson Collins RDN,LD
[2024-04-04] MEDS: 0.9% Saline Lock 10 ML Syringe IV (15:44)
== END 2024-04-04 16:24 | disposition hospice, home (50) | DRG 177 ==
LOC: ED 14:43 → PCU 21:44
PROVIDERS: Admitting Provider Internal Medicine; Emergency Provider Emergency Medicine; PCP Family Medicine; Visit Provider Student in an Organized Health Care Education/Training Program
DX: J69.0 Pneumonitis due to inhalation of food and vomit (principal); I50.33 Acute on chronic diastolic (congestive) heart failure; J96.12 Chronic respiratory failure with hypercapnia; E87.1 Hypo-osmolality and hyponatremia; J44.1 Chronic obstructive pulmonary disease with (acute) exacerbation; J96.11 Chronic respiratory failure with hypoxia; I11.0 Hypertensive heart disease with heart failure; E11.9 Type 2 diabetes mellitus without complications; I25.10 Atherosclerotic heart disease of native coronary artery without angina pectoris; E87.6 Hypokalemia; E78.00 Pure hypercholesterolemia, unspecified; Z79.4 Long term (current) use of insulin; F17.200 Nicotine dependence, unspecified, uncomplicated; I25.2 Old myocardial infarction; K21.9 Gastro-esophageal reflux disease without esophagitis; R53.81 Other malaise; Z90.710 Acquired absence of both cervix and uterus; Z79.02 Long term (current) use of antithrombotics/antiplatelets; Z95.5 Presence of coronary angioplasty implant and graft; Z85.118 Personal history of other malignant neoplasm of bronchus and lung; Z92.21 Personal history of antineoplastic chemotherapy; Z99.81 Dependence on supplemental oxygen; Z86.73 Personal history of transient ischemic attack (TIA), and cerebral infarction without residual deficits; Z79.84 Long term (current) use of oral hypoglycemic drugs; Z79.899 Other long term (current) drug therapy; Z90.49 Acquired absence of other specified parts of digestive tract
CPT/HCPCS: 36415; 36591; 36600; 71045; 80048; 80053; 80061; 81001; 82803; 82962; 83036; 83605; 83735; 84100; 84145; 84443; 84484; 85025; 85027; 85610; 85730; 87040; 87086; 87449; 87631; 87633; 92610; 93005; 93306; 94640; 94668; 99285; J7040; A4216; J1940